=== PATIENT | male | born 1965 | race Caucasian/White ===

== ENCOUNTER 2019-12-14 12:49 | Inpatient (IN) | payer MEDICAID, SELFPAY ==
[2019-12-14] VITALS (8 sets, daily range): BP systolic 131–154; BP diastolic 75–101; PULSE 58–78; RESP 15–18; TEMP 36.7–36.9; O2SAT 96–99; BMI 20.5; BMI 19.5; BMI 19.6
--- NOTE | 2019-12-14 12:56 | EKG12_ITS ---
Test Reason : Blood Pressure : / mmHG Vent. Rate : 074 BPM Atrial Rate : 074 BPM P-R Int : 138 ms QRS Dur : 084 ms QT Int : 414 ms P-R-T Axes : 068 064 076 degrees QTc Int : 459 ms Sinus rhythm with Premature atrial complexes Septal infarct , age undetermined Abnormal ECG Confirmed by AIXA MARTIN, CARLYLE ([id number]), video tape editor CAROLEE ESQUIVEL ([id number]) on 12/19/2019 2:05:27 PM Referred By: DELLA Confirmed By:CARLYLE KRUSE MD
--- NOTE | 2019-12-14 13:00 | CM.ED ---
SOCIAL WORK UPDATED BY DR. HULL ON PATIENT'S REQUEST FOR DETOX. PATIENT LAST DRINK WAS YESTERDAY. COMPLETING WORK UP AT THIS TIME. CALL TO KIP WITH [facility] TO UPDATE ON PATIENT'S ANTICIPATED ADMISSION FOR ALCOHOL WITHDRAW MANAGEMENT. NO ANSWER, LEFT MESSAGE. Tiffanie THOMPSON ,BRIGHT CUTTER, ROOF BOLTER OPERATOR.
--- NOTE | 2019-12-14 13:10 | RAD_ITS ---
STUDY: X-RAY CHEST REASON FOR EXAM: Male, 54 years old. weight loss TECHNIQUE: PA and lateral views of the chest. COMPARISON: None. FINDINGS: The lungs are clear and expanded. There is no demonstrated pleural abnormality. Normal size heart. Normal mediastinum and makayla. Normal visualized pulmonary arteries. Normal visualized aortic arch and descending thoracic aorta. Normal visualized thoracic spine. Normal visualized ribs, clavicles, and shoulders. There is no demonstrated abnormality of the visualized soft tissue structures of the upper abdomen. RAD/Chest PA and Lateral IMPRESSION: Normal x-ray examination of the chest. Electronically Signed: James Medina MD at 14:08 EDT Tel , Service support ,
--- NOTE | 2019-12-14 13:11 | ED.DCSUM_ITS ---
History of Present Illness Chief Complaint: Substance Abuse Informant: Patient Narrative: Patient states that for greater than 30 years he has been addicted to alcohol. Specifically vodka. He states that he drinks approximately 2 pints a day sometimes with beer sometimes without. He states he wakes up every morning he is shaking and has to go right to the bottle. He has had difficulty maintaining a job. He states it has not caused him any legal issues. He is currently from his . He has 3 children that live in [place]. He is currently staying with a nurse and they sat down yesterday and talked and he has decided that he would like rehab. He states that he hates having to live a lie and resort to the bottle. He notes some weight loss but also states that alcohol has started to replace his food. Past Medical History - Allergies and Home Meds Allergies/Adverse Reactions: Allergies No Known Allergies Allergy (Verified 12/14/19 12:50) Primary Care Physician: NOT,DEFINED [NON-STAFF] - Review of Systems General: Denies: Chills, Fever, Sweats Eyes: Denies: Visual changes - bilaterally, Diplopia ENT: Denies: Rhinorrhea, Sore throat Cardiovascular: Denies: Chest pain, Palpitations Respiratory: Denies: Dyspnea, Cough, Dyspnea on exertion Gastrointestinal: Denies: Abdominal pain, Nausea, Vomiting, Diarrhea, Melena, Hematochezia Genitourinary: Denies: Dysuria, Hematuria, Frequency Musculoskeletal: Denies: Back pain, Extremity Pain Skin: Denies: Rash, Wounds Neurological: Denies: Headache, Weakness, Numbness Physical Exam Vital Signs/Narrative: Vital Signs Temp Pulse Resp BP Pulse Ox 12/14/19 12:51 98.4 F 68 15 154/94 H 97 Inital Vital Signs reviewed: Yes General: Well nourished, Well developed, No Acute Distress Head: Normocephalic, Atraumatic Eyes: Perrl, EOMI ENT: Moist mucous membranes, No rhinorrhea, - - Facial telangiectasias Neck: Supple, Nontender Cardiovascular: Regular rate, Regular rhythm, No murmurs Respiratory: No distress, CTA bilaterally, Chest nontender Abdomen: Soft, Nontender, Nondistended, Normal bowel sounds Back: Nontender, Normal Inspection Extremities: Nontender, No edema Skin: Normal color, No rash Neurological: Alert, Oriented x3, Cranial nerves II-XII grossly intact, Normal Strength, Normal Sensation, - - Patient has tremor Psychological: Depressed Diagnostic/Tx/Re-eval - EKG Initial EKG Interpretation: Sinus Rhythm - EKG demonstrates a sinus rhythm with some premature atrial complexes at a rate of 74 without concerning features of ACS. - Medical Decision Making ED addiction order set was used. He received a milligram of Ativan. Our plan is admission. ED Disposition - Plan for ED Patient: Disposition: Acute Care Hospital [facility] Diagnosis: Alcohol withdrawal Referrals: NOT,DEFINED [NON-STAFF] -
[2019-12-14] MEDS: LORazepam 2 MG/ML Syringe 1 MG IV (13:35)
[2019-12-14 13:51] LABS: Absolute Lymphocyte Count 0.99 X10^3/uL (0.83-4.51); Basophil# 0.02 X10^3/uL; Basophil% 0.4 % (0-1); Eosinophil# 0.14 X10^3/uL; Eosinophils% 2.5 % (0-5); Hemoglobin 13.7 g/dL (13.0-16.5); Lymphocyte # 0.99 X10^3/ul (4.0); Lymphocyte % 17.5 % (19-41); Mean Corp Hgb Conc 34.3 g/dL (32-36); Mean Corpuscular Hgb 35.1 pg (27.0-32.0); Mean Corpuscular Volume 102.6 fL (80-94); Mean Platelet Vol. 10.2 fl (6.2-12.0); Monocyte# 0.49 X10^3/uL; Monocyte% 8.7 % (0-10); NRBC Flagged by Analyzer 0 % (0-5); Neutrophil # 3.99 X10^3/uL (2.7-7.7); Neutrophil % 70.5 % (47-70); Platelet Count 141 K/mm3 (150-450); RBC Distribution Width CV 16.4 % (11.6-14.6); RBC Distribution Width SD 61.3 fl (35.1-43.9); White Blood Count 5.7 K/mm3 (4.4-11.0)
[2019-12-14 14:07] LABS: ALB/GLOB Ratio 0.9 RATIO (0.9-2.4); AST(SGOT) 128 U/L (15-37); Alanine Aminotransfer ALT/SGPT 89 U/L (16-61); Albumin, Serum 3.7 g/dL (3.2-5.0); Alkaline Phosphatase 133 U/L (45-117); Anion Gap 9 (5-15); BUN 8 mg/dL (7-18); BUN/Creat Ratio 11.1 RATIO (10-20); Calcium,Total 8.4 mg/dL (8.5-10.1); Chloride 104 mmol/L (98-107); Creatinine, Serum 0.72 mg/dL (0.70-1.30); EST Glomerular Filtration Rate 119 mL/min (>60); Est Glom Filt Rate - Afr Amer 145 mL/min (>60); Estimated Creatinine Clearance 114.07 ml/min; Globulin 4.3 g/dL (2.2-4.2); Glucose 87 mg/dL (74-106); Magnesium 1.9 mg/dL (1.6-2.6); Potassium 3.6 mmol/L (3.5-5.1); Sodium Level 138 mmol/L (136-145)
[2019-12-14 14:11] LABS: Prothrombin Time (Protime)PT. 12.5 SECONDS (11.7-14.9)
--- NOTE | 2019-12-14 14:39 | HP.PCM_ITS ---
History of Present Illness Date of Admission: 12/14/19 Chief Complaint: alcohol withdrawal The patient is a 54 year old M with a history of alcohol abuse and nicotine dependence. He was admitted through the ED on 12/14/2019 for alcohol withdrawal. Patient has been drinking alcohol for about 30 years and states he drinks about 2 pints a day. His last drink was yesterday. He usually wakes up in the morning with shakes which is relieved by drinking. Patient is staying with some family friends and he had a discussion with them yesterday and he decided that he would like to come into the hospital for withdrawal as he was having worsening shakes. He denied any fever, any chills, any palpitations or dizz iness, any nausea vomiting or diarrhea. Review of symptoms otherwise negative. Patient in the ED, vitals were significant for blood pressure of 131/101 but was otherwise stable. Chemistry showed total bilirubin of 0.7 with AST of 128 and ALT of 89 as well as ALP of 133. CBC showed WBC of 5.7 and hemoglobin of 13.7 with platelets of 141. Chest x-ray showed no acute cardiopulmonary process. Al cohol level is 29. He has been admitted to be managed for acute alcohol withdrawal. [] Past Medical History Allergies No Known Allergies Allergy (Verified 12/14/19 12:50) Home Medications: Ambulatory Orders Medication Instructions Recorded [place]-3 Fatty Acids/Fish Oil [Fish 1 ea PO DAILY 12/14/19 Oil 1,000 mg Capsule] Surgical History: no surgical history Psychiatric History: No pertinent psych hx Lives: Friends Smoking Status: Current every day smoker Tobacco Use: Cigarettes Alcohol: Heavy Drugs: None - *Family History Maternal History Items: Cancer Sibling History Items: Cancer - sister had breast cancer Paternal History Items: No pertinent history Review of Systems Constitutional: Denies: Chills, Fever, Malaise, Weakness, Weight Change Eyes: Denies: Blurred vision HEENT: Denies: Head Aches, Sinus Congestion, Sinus Drainage Cardiovascular: Denies: Chest Pain, Palpitations Respiratory: Denies: Cough, Shortness of Breath, Shortness of breath at rest, Shortness of breath upon exertion, Sputum production Gastrointestinal: Denies: Abdominal Pain, Nausea, Vomiting Genitourinary: Denies: Dysuria Musculoskeletal: Denies: Joint Pain, Joint Tenderness Skin: Denies: Rash, Wounds Neurological: Reports: Tremor. Denies: Focal weakness, Numbness, Tingling Psychiatric: Denies: Anxiety, Depression, Homicidal Ideations, Suicidal Ideations Hematologic/ Lymphatic: Denies: Easy Bruising, Easy Bleeding VTE Information - Inpt Only VTE Present on Admission: No VTE Pharm Prophylaxis ordered?: Yes Patient Problems: Active and Suspected Problems Alcohol withdrawal (Acute) - Physical Exam Vitals/I&O's: Vital Signs Temp Pulse Resp BP Pulse Ox 98.4 F 70 16 132/75 H 97 12/14/19 13:22 12/14/19 13:32 12/14/19 13:32 12/14/19 13:32 12/14/19 13:32 Oxygen Delivery Method Room Air Weight: 155 lb 3.287 oz Body Mass Index (BMI) 20.5 General: Alert, Oriented x3, Cooperative, No apparent distress HEENT: Atraumatic, PERRLA, EOMI, Normocephalic Oral: Dry Mucosa Neck: Supple, No JVD, Negative Carotid Bruits Lungs: Clear to auscultation, Normal air movement, No rhonchi, No wheeze Cardiovascular: Regular rate, Regular Rhythm, Normal S1, Normal S2, No murmurs Abdomen: Bowel Sounds Present, Soft, Non Tender, Non-Distended, No Hepato- splenomegaly Extremities: No clubbing, No cyanosis, No edema, Capillary Refill Less than 3 Seconds Skin: No rashes, No breakdown Musculoskeletal: No Tenderness to Palpation of Joints or Extremities Lymphatic: No Cervical, Supraclavicular, or Inguinal Adenopathy Neurological: Cranial nerves II-XII grossly intact, Neuro grossly intact, Motor Exam 5/5 strength throughout Psych/Mental Status: Normal Affect, Appropriate, Alert and oriented to time, place, person, mood and affect Laboratory Results 12/14/19 13:35: PT 12.5, INR 1.0 12/14/19 13:35: Sodium 138, Potassium 3.6, Chloride 104, Carbon Dioxide 25.0, Anion Gap 9, BUN 8, Creatinine 0.72, Estim Creat Clear Calc 114.07, Est GFR (MDRD) Af Amer 145, Est GFR (MDRD) Non-Af 119, BUN/Creatinine Ratio 11.1, Glucose 87, Calcium 8.4 L, Magnesium 1.9, Total Bilirubin 0.70, AST 128 H, ALT 89 H, Alkaline Phosphatase 133 H, Total Protein 8.0, Albumin 3.7, Globulin 4.3 H , Albumin/Globulin Ratio 0.9 12/14/19 13:35: Ethyl Alcohol 29.0 12/14/19 13:35: WBC 5.7, RBC 3.90 L, Hgb 13.7, Hct 40.0, MCV 102.6 H, MCH 35.1 H , MCHC 34.3, RDW Std Deviation 61.3 H, RDW Coeff of Shad 16.4 H, Plt Count 141 L, MPV 10.2, Immature Gran % (Auto) 0.400, Neut % (Auto) 70.5 H, Lymph % (Auto) 17.5 L, [place] % (Auto) 8.7, Eos % (Auto) 2.5, Baso % (Auto) 0.4, Absolute Neuts (auto) 4.0, Absolute Lymphs (auto) 0.99, Nucleated RBC % 0 Diagnostic Data Chest X-Ray 12/14/19 13:10 IMPRESSION: Normal x-ray examination of the chest. Electronically Signed: James Medina MD at 14:08 EDT Tel , Service support , Assessment/Plan All Active Problems Alcohol withdrawal (Acute) 54-year-old male admitted for alcohol withdrawal. 1. Acute alcohol withdrawal * CIWA score on admission-18 * admit to Med Surg with telemetry * check urine tox * start on alcohol withdrawal protocol with phenobarbital * monitor CIWA score * consult case management for discharge planning. * 2. Nicotine dependence * smokes ~ 1 pack daily * give nicotine patch 21mg daily * DVT prophylaxis; low risk. encourage ambulation CODE STATUS: Full code * Patient counseled extensively about different types of CODE STATUS including full code, DNR CCA and DNR CCA. Patient elects to be full code. * Total [id number] time 16 minutes. Inpatient E&M: 42463 Init Hosp L3 Procedures: 58569 Advncd Care Plan 30 Min
[2019-12-14 16:03] LABS: Bacteria 0 SEEN /hpf (None Seen)
[2019-12-14 16:10] LABS: Color, Urine Yellow (Yellow); Glucose, Dipstick Normal (Normal); Ketone-Dipstick 15 mg/dl (Negative); Leukocyte Esterase-Dipstick 100 /ul (Negative); Nitrite-Dipstick Negative (Negative); Occult Blood-Urine 10 /ul (Negative); Protein-Dipstick 15 mg/dl (Negative); Urine Bilirubin Dipstick Negative (Negative); Urine Clarity Clear (Clear); Urine Urobilinogen 1 mg/dl (Normal)
--- NOTE | 2019-12-14 16:14 | NURSING ---
pt does not get influenza vaccine
[2019-12-14 16:20] LABS: Squamous Epithelial Cells - UA 0-5 SEEN /hpf (0-5)
[2019-12-14 16:21] LABS: Hyaline Cast 0-5 SEEN /lpf (0-5); Mucous, Urine RARE /hpf (<or=2+)
[2019-12-14 16:22] LABS: Red Blood Cells-Urine 0-5 SEEN /hpf (0-5); White Blood Cells 5-10 SEEN /hpf (0-5)
[2019-12-14] MEDS: Phenobarbital 32.4 MG Tablet 64.8 MG PO ×2 (16:25→20:55)
[2019-12-14] MEDS: Thiamine Hydrochloride 100 MG Tablet PO (16:26)
[2019-12-14 16:32] LABS: Amphetamine Urine VISTA NEGATIVE (<1000 ng/mL); Barbiturate Urine VISTA NEGATIVE (< 200 ng/mL); Benzodiazepine Urine VISTA NEGATIVE (< 200 ng/mL); Cocaine Urine VISTA NEGATIVE (< 300 ng/mL); Ecstacy Urine VISTA NEGATIVE (< 500 ng/mL); Methadone Urine VISTA NEGATIVE (< 300 ng/mL); PCP Urine VISTA NEGATIVE (< 25 ng/mL); THC Urine VISTA NEGATIVE (< 50 ng/mL); Vista UDS pH Range 5
[2019-12-15] VITALS (11 sets, daily range): BP systolic 120–146; BP diastolic 79–92; PULSE 56–117; RESP 16–18; TEMP 36.6–36.9; O2SAT 97–98
[2019-12-15] MEDS: Phenobarbital 32.4 MG Tablet 64.8 MG PO ×6 (00:45→20:58)
[2019-12-15] MEDS: Multivitamins,Ther W-Minerals Tablet 1 TABLET PO (08:12)
[2019-12-15] MEDS: Omega-3 Acid Ethyl Esters 1 GM Capsule PO (08:12)
[2019-12-15] MEDS: Folic Acid 1 MG Tablet PO (08:12)
[2019-12-15] MEDS: Thiamine Hydrochloride 100 MG Tablet PO ×2 (08:12→16:05)
--- NOTE | 2019-12-15 09:28 | CASEMGMT ---
Addendum entered by Iwona Alcocer 12/15/19 10:51: KENYA received call from Ashleigh at [facility] stating Sondra will be in to see pt today as Ashleigh is out sick. Original Note: Social Work Note SW placed another call to Ashleigh at [facility] (cell phone) and left message that pt will need to be seen. Iwona Alcocer CHANGE OF ADDRESS CLERK, EAP COUNSELOR
--- NOTE | 2019-12-15 10:22 | PCM.PN.HOSP ---
Patient Problems: Active and Suspected Problems Alcohol withdrawal (Acute) Subjective: Patient seen and examined. He has no complaints and feels well. Review of systems otherwise negative. Labs and vitals reviewed. CIWA score is 2. Vitals/I&O's: Vital Signs Temp Pulse Resp BP Pulse Ox 98.4 F 56 L 16 146/92 H 97 12/15/19 08:10 12/15/19 08:10 12/15/19 08:10 12/15/19 08:10 12/15/19 08:10 Oxygen Delivery Method Room Air Weight: 148 lb 7 oz Body Mass Index (BMI) 19.5 Intake and Output for Last 24 Hours 12/13/19 12/14/19 12/15/19 23:59 23:59 23:59 Intake Total 240 / 240 700 / 700 Output Total 600 / 600 Balance 240 / 240 100 / 100 General: Alert, Oriented x3, Cooperative, No apparent distress HEENT: Atraumatic, PERRLA, EOMI, Normocephalic Oral: Dry Mucosa Neck: Supple, No JVD, Negative Carotid Bruits Lungs: Clear to auscultation, Normal air movement, No rhonchi, No wheeze Cardiovascular: Regular rate, Regular Rhythm, Normal S1, Normal S2, No murmurs Abdomen: Bowel Sounds Present, Soft, Non Tender, Non-Distended, No Hepato-splenomegaly Extremities: No clubbing, No cyanosis, No edema, Capillary Refill Less than 3 Seconds Skin: No rashes, No breakdown Musculoskeletal: No Tenderness to Palpation of Joints or Extremities Lymphatic: No Cervical, Supraclavicular, or Inguinal Adenopathy Neurological: Cranial nerves II-XII grossly intact, Neuro grossly intact, Motor Exam 5/5 strength throughout Psych/Mental Status: Normal Affect, Appropriate, Alert and oriented to time, place, person, mood and affect Laboratory Results 12/14/19 13:35: PT 12.5, INR 1.0 12/14/19 13:35: Sodium 138, Potassium 3.6, Chloride 104, Carbon Dioxide 25.0, Anion Gap 9, BUN 8, Creatinine 0.72, Estim Creat Clear Calc 114.07, Est GFR (MDRD) Af Amer 145, Est GFR (MDRD) Non-Af 119, BUN/Creatinine Ratio 11.1, Glucose 87, Calcium 8.4 L, Magnesium 1.9, Total Bilirubin 0.70, AST 128 H, ALT 89 H, Alkaline Phosphatase 133 H, Total Protein 8.0, Albumin 3.7, Globulin 4.3 H, Albumin/Globulin Ratio 0.9 12/14/19 13:35: Ethyl Alcohol 29.0 12/14/19 13:35: WBC 5.7, RBC 3.90 L, Hgb 13.7, Hct 40.0, MCV 102.6 H, MCH 35.1 H, MCHC 34.3, RDW Std Deviation 61.3 H, RDW Coeff of Shad 16.4 H, Plt Count 141 L, MPV 10.2, Immature Gran % (Auto) 0.400, Neut % (Auto) 70.5 H, Lymph % (Auto) 17.5 L, [place] % (Auto) 8.7, Eos % (Auto) 2.5, Baso % (Auto) 0.4, Absolute Neuts (auto) 4.0, Absolute Lymphs (auto) 0.99, Nucleated RBC % 0 12/14/19 15:55: Urine Opiates Screen NEGATIVE, Urine Methadone Screen NEGATIVE, Ur Barbiturates Screen NEGATIVE, Ur Phencyclidine Scrn NEGATIVE, Ur Amphetamines Screen NEGATIVE, U Methamphetamin-MDMA NEGATIVE, U Benzodiazepines Scrn NEGATIVE, Urine Cocaine Screen NEGATIVE, U Cannabinoids Screen NEGATIVE, Ur Drug Screen Comment 12/14/19 15:55: Urine Color Yellow, Urine Clarity Clear, Urine pH 5.0, Ur Specific [place] 1.020, Urine Protein 15 H, Urine Glucose (UA) Normal, Urine Ketones 15 H, Urine Occult Blood 10 H, Urine Nitrite Negative, Urine Bilirubin Negative, Urine Urobilinogen 1 H, Ur Leukocyte Esterase 100 H, Urine RBC 0-5 SEEN, Urine WBC 5-10 SEEN, Ur Squamous Epith Cells 0-5 SEEN, Urine Bacteria 0 SEEN, Hyaline Casts 0-5 SEEN, Urine Mucus RARE Diagnostic Data Chest X-Ray 12/14/19 13:10 IMPRESSION: Normal x-ray examination of the chest. Electronically Signed: James Medina MD at 14:08 EDT Tel , Service support , Current Medications Dextrose (D50w Syringe) 0 gm IV X1 PRN; Protocol PRN Reason: Hypoglycemia Dicyclomine HCl (Bentyl) 20 mg PO Q6H PRN PRN PRN Reason: abdominal discomfort Folic Acid (Folic Acid) 1 mg PO DAILY@0800 [facility] Stop: 12/17/19 08:01 Last Admin: 12/15/19 08:12 Dose: 1 mg Documented by: Glucagon () 1 mg IM .X1 PRN PRN Reason: Hypoglycemia Loperamide HCl (Imodium) 2 mg PO Q4H PRN PRN PRN Reason: LOOSE STOOLS Lorazepam (Ativan) 2 mg PO Q2H PRN PRN; Protocol PRN Reason: CIWA score > 8 but <15 Lorazepam (Ativan) 2 mg PO UD PRN; Protocol PRN Reason: CIWA score >/=15. Lorazepam (Ativan) 2 mg IV Q2H PRN PRN; Protocol PRN Reason: CIWA score > 8 but <15 Lorazepam (Ativan) 2 mg IV UD PRN; Protocol PRN Reason: CIWA score >/=15. Multivitamins/Minerals (Multivitamin With Minerals (Bkc)) [facility] Last Admin: 12/15/19 08:12 Dose: 1 tablet Documented by: Nutritional Formula (Lactose Free) (Ensure Enlive) 120 ml PO 4X/DAY [facility] Last Admin: 12/15/19 08:15 Dose: 120 ml Documented by: [id number] Ethyl Esters (Lovaza) 1 gm PO DAILY [facility] Last Admin: 12/15/19 08:12 Dose: 1 gm Documented by: Phenobarbital (Phenobarbital) 97.2 mg PO Q4H [facility]; Taper Stop: 12/18/19 23:59 Last Admin: 12/15/19 08:11 Dose: 97.2 mg Documented by: Sodium Chloride () 10 - 40 ml IV UD PRN PRN Reason: SALINE FLUSH Thiamine HCl (Vitamin B1) 100 mg PO BIDCM [facility] Stop: 12/17/19 08:01 Last Admin: 12/15/19 08:12 Dose: 100 mg Documented by: STROKE Vital Signs/Narrative: Vital Signs Temp Pulse Resp BP Pulse Ox 12/15/19 08:10 98.4 F 56 L 16 146/92 H 97 12/15/19 07:35 61 Medical Necessity - Tobacco Use Smoking Status: Current every day smoker Tobacco Use: Cigarettes Assessment/Plan All Active Problems Alcohol withdrawal (Acute) 54-year-old male admitted for alcohol withdrawal. 1. Acute alcohol withdrawal CIWA sxore today s 2 on alcohol withdrawal protocol with phenobarbital urine tox was negative monitor CIWA score 2. Nicotine dependence smokes ~ 1 pack daily give nicotine patch 21mg daily DVT prophylaxis; low risk. encourage ambulation CODE STATUS: Full code Inpatient E&M: 90755 Subs Hosp L2
--- NOTE | 2019-12-15 13:16 | CHAPLAIN ---
Type of Pastoral Visit _x__ Initial Visit ___ Follow-up Visit ___ On-call Visit ___ General Patient Visit ___ Spiritual Assessment ___ Family Conference ___ Bereavement ___ Rapid Response ___ Code Blue ___ Other (describe below) Pastoral Care Referral From _x__ Patient ___ Family ___ Nurse ___ Physician ___ Property And Supply Officer ___ Knit Goods Washer ___ Other (describe below) Sacrament/Intervention _x__ Active listening ___ Anointing ___ Protestant ___ Bereavement ___ Communion _x__ Moriah exploration ___ _x__ Life review _x__ Prayer ___ Reconciliation ___ Sacrament of Sick _x__ Supportive presence ___ Wedding ___ Other (describe below) Pastoral Comments patient welcoming of this steam blocker and invites same to sit and talk with him; pt describes goal to get sober 'after 30 years I've had enough of this'; pt says that one thing he wants to do is to get back to God; pt states that a friend has been taking him to christian; pt gives some life story and repeats goal of being 'done with this'; pt has some supportive family but not many; pt is unemployed and has lost his drivers license but appears motivated to find work and 'start over'; patient would be a good candidate for moriah based counseling; pt open to spiritual care visits
[2019-12-16] VITALS (13 sets, daily range): BP systolic 95–121; BP diastolic 67–84; PULSE 54–84; RESP 16–18; TEMP 36.5–37.2; O2SAT 95–97
[2019-12-16] MEDS: Phenobarbital 32.4 MG Tablet 64.8 MG PO ×6 (00:06→19:36)
[2019-12-16] MEDS: Multivitamins,Ther W-Minerals Tablet 1 TABLET PO (08:33)
[2019-12-16] MEDS: Folic Acid 1 MG Tablet PO (08:33)
[2019-12-16] MEDS: Omega-3 Acid Ethyl Esters 1 GM Capsule PO (08:33)
[2019-12-16] MEDS: Thiamine Hydrochloride 100 MG Tablet PO ×2 (08:33→16:23)
--- NOTE | 2019-12-16 09:21 | PN_ITS ---
Patient Problems: Active and Suspected Problems Alcohol withdrawal (Acute) Reason for Visit: follwo up for alcohol withdrawal Subjective: Patient seen and examined. He has no complaints. Review of systems otherwise negative. Labs and vitals reviewed. CIWA score today is 0 Vitals/I&O's: Vital Signs Temp Pulse Resp BP Pulse Ox 97.7 F L 74 16 95/67 95 12/16/19 08:46 12/16/19 08:46 12/16/19 08:46 12/16/19 08:46 12/16/19 08:46 Oxygen Delivery Method Room Air Weight: 148 lb 7 oz Body Mass Index (BMI) 19.5 Intake and Output for Last 24 Hours 12/14/19 12/15/19 12/16/19 23:59 23:59 23:59 Intake Total 240 / 240 1700 / 2060 710 / 710 Output Total 600 / 600 Balance 240 / 240 1100 / 1460 710 / 710 General: Alert, Oriented x3, Cooperative, No apparent distress HEENT: Atraumatic, PERRLA, EOMI, Normocephalic Oral: Dry Mucosa Neck: Supple, No JVD, Negative Carotid Bruits Lungs: Clear to auscultation, Normal air movement, No rhonchi, No wheeze Cardiovascular: Regular rate, Regular Rhythm, Normal S1, Normal S2, No murmurs Abdomen: Bowel Sounds Present, Soft, Non Tender, Non-Distended, No Hepato- splenomegaly Extremities: No clubbing, No cyanosis, No edema, Capillary Refill Less than 3 Seconds Skin: No rashes, No breakdown Musculoskeletal: No Tenderness to Palpation of Joints or Extremities Lymphatic: No Cervical, Supraclavicular, or Inguinal Adenopathy Neurological: Cranial nerves II-XII grossly intact, Neuro grossly intact, Motor Exam 5/5 strength throughout Psych/Mental Status: Normal Affect, Appropriate, Alert and oriented to time, place, person, mood and affect Current Medications Dextrose (D50w Syringe) 0 gm IV X1 PRN; Protocol PRN Reason: Hypoglycemia Dicyclomine HCl (Bentyl) 20 mg PO Q6H PRN PRN PRN Reason: abdominal discomfort Folic Acid (Folic Acid) 1 mg PO DAILY@0800 [facility] Stop: 12/17/19 08:01 Last Admin: 12/16/19 08:33 Dose: 1 mg Documented by: Glucagon () 1 mg IM .X1 PRN PRN Reason: Hypoglycemia Loperamide HCl (Imodium) 2 mg PO Q4H PRN PRN PRN Reason: LOOSE STOOLS Lorazepam (Ativan) 2 mg PO Q2H PRN PRN; Protocol PRN Reason: CIWA score > 8 but <15 Lorazepam (Ativan) 2 mg PO UD PRN; Protocol PRN Reason: CIWA score >/=15. Lorazepam (Ativan) 2 mg IV Q2H PRN PRN; Protocol PRN Reason: CIWA score > 8 but <15 Lorazepam (Ativan) 2 mg IV UD PRN; Protocol PRN Reason: CIWA score >/=15. Multivitamins/Minerals (Multivitamin With Minerals (Bkc)) [facility] Last Admin: 12/16/19 08:33 Dose: 1 tablet Documented by: Nicotine (Nicoderm Cq (Pbkc)) 21 mg TRANSDERM. DAILY [facility] Last Admin: 12/16/19 08:38 Dose: Not Given Documented by: Nutritional Formula (Lactose Free) (Ensure Enlive) 120 ml PO 4X/DAY [facility] Last Admin: 12/16/19 08:38 Dose: 120 ml Documented by: [id number] Ethyl Esters (Lovaza) 1 gm PO DAILY [facility] Last Admin: 12/16/19 08:33 Dose: 1 gm Documented by: Phenobarbital (Phenobarbital) 64.8 mg PO Q4H [facility]; Taper Stop: 12/18/19 23:59 Last Admin: 12/16/19 08:36 Dose: 64.8 mg Documented by: Sodium Chloride () 10 - 40 ml IV UD PRN PRN Reason: SALINE FLUSH Thiamine HCl (Vitamin B1) 100 mg PO BIDCM [facility] Stop: 12/17/19 08:01 Last Admin: 12/16/19 08:33 Dose: 100 mg Documented by: STROKE Vital Signs/Narrative: Vital Signs Temp Pulse Resp BP Pulse Ox 12/16/19 08:46 97.7 F L 74 16 95/67 95 12/16/19 08:44 97.7 F L 74 16 95/67 95 12/16/19 07:52 68 Medical Necessity - Tobacco Use Smoking Status: Current every day smoker Tobacco Use: Cigarettes Assessment/Plan All Active Problems Alcohol withdrawal (Acute) 54-year-old male admitted for alcohol withdrawal. 1. Acute alcohol withdrawal * CIWA sxore today is 0 * on alcohol withdrawal protocol with phenobarbital * urine tox was negative * monitor CIWA score * 2. Nicotine dependence * smokes ~ 1 pack daily * nicotine patch 21mg daily * DVT prophylaxis; low risk. encourage ambulation CODE STATUS: Full code * Inpatient E&M: 45592 Subs Hosp L2
--- NOTE | 2019-12-16 09:24 | NURSING ---
Addendum entered by Betsy Reid 12/16/19 16:34: Mallory from [facility] here to discuss discharge planning with patient. they plan for him to return to friend Mely's house on Wednesday and then go to [facility] on Wednesday morning at 0900. Original Note: called [facility] to verify that they were coming to see patient. informed them that we have no notes in regards to discharge planning
[2019-12-17] MEDS: Phenobarbital 32.4 MG Tablet 64.8 MG PO ×3 (00:06→12:06)
[2019-12-17 02:15] VITALS: BP 111/75; PULSE 73; RESP 16; TEMP 37; O2SAT 97
[2019-12-17] MEDS: Folic Acid 1 MG Tablet PO (08:30)
[2019-12-17] MEDS: Multivitamins,Ther W-Minerals Tablet 1 TABLET PO (08:30)
[2019-12-17] MEDS: Thiamine Hydrochloride 100 MG Tablet PO (08:30)
[2019-12-17] MEDS: Omega-3 Acid Ethyl Esters 1 GM Capsule PO (08:31)
[2019-12-17 09:24] VITALS: BP 119/66; PULSE 80; RESP 16; TEMP 36.8; O2SAT 97
--- NOTE | 2019-12-17 10:01 | PCM.DC ---
- Discharge Diagnoses Current Active Problems: Current Active and Chronic Problems Alcohol withdrawal (Acute) You will use the following diet at home:: Cardiac Your food should be the consistency of: Regular Your liquids should be the consistency of: Regular/Thin Discharge Activity: Return to Normal Activity Weight Bearing Status: Weight bearing as tolerated Call your doctor if you observe: Fever of 101 or Higher, Increased palpitations (irregular heartbeat) Instructions: ED Withdrawal Alcohol Additional Instructions: follow up with [facility] on Wednesday12/19/2019, for assessment to determine whether to have outpatient or inpatient rehab Allergies/Adverse Reactions: Allergies No Known Allergies Allergy (Verified 12/14/19 12:50) Medications to take at Discharge [place]-3 Fatty Acids/Fish Oil [Fish Oil 1,000 mg Capsule] 1 ea PO DAILY 12/14/19 Primary Care Physician: NOT,DEFINED [NON-STAFF] - Please follow up with your Primary Care Physician in: PCP in 1-2 weeks Test Results: Test results from this visit will be discussed in further detail at your follow-up appointment, if applicable. Proposed Discharge Date: 12/17/19
--- NOTE | 2019-12-17 10:03 | DS.PCM_ITS ---
Discharge Date and Diagnosis - Problem List Patient Problems: Active and Suspected Problems Alcohol withdrawal (Acute) Date of Admission: 12/14/19 Date of Discharge: 12/17/19 - Primary Discharge Diagnosis Acute Problems: Active Problems Alcohol withdrawal (Acute) Hospital Course and Treatment Imaging Results: Diagnostic Data Chest X-Ray 12/14/19 13:10 IMPRESSION: Normal x-ray examination of the chest. Electronically Signed: James Medina MD at 14:08 EDT Tel , Service support , Operations: None Procedures: None Summary of Care Provided: The patient is a 54 year old M with a history of alcohol abuse and nicotine dependence. He was admitted through the ED on 12/14/2019 for alcohol withdrawal. Patient has been drinking alcohol for about 30 years and states he drinks about 2 pints a day. His last drink was yesterday. He usually wakes up in the morning with shakes which is relieved by drinking. Patient is staying with some family friends and he had a discussion with them yesterday and he decided that he would like to come into the hospital for withdrawal as he was having worsening shakes. He denied any fever, any chills, any palpitations or dizziness, any nausea vomiting or diarrhea. Review of symptoms otherwise negative. Patient in the ED, vitals were significant for blood pressure of 131/101 but was otherwise stable. Chemistry showed total bilirubin of 0.7 with AST of 128 and ALT of 89 as well as ALP of 133. CBC showed WBC of 5.7 and hemoglobin of 13.7 with platelets of 141. Chest x-ray showed no acute cardiopulmonary process. Alcohol level was 29. He was admitted to be managed for acute alcohol withdrawal. He was started on alcohol withdrawal protocol with phenobarbital. Patient tolerated 3-day detox procedure very well. His symptoms fully resolved. He remained stable and was discharged home on 12/17/2019. He was evaluated by [facility] during admission and plan was for patient to follow-up with 118 on 12/19/2019 for decision to be made about whether he will go for inpatient rehab or outpatient rehab. He is to follow up with his PCP in 1-2 weeks. Patient seen and examined prior to discharge. He had no complaints and was ready to be discharged. Review of systems was otherwise negative. Home meds reviewed and reconciled. O/E: Vital Signs Temp Pulse Resp BP Pulse Ox 98.1 F 77 16 118/71 97 12/17/19 12:14 12/17/19 12:14 12/17/19 12:14 12/17/19 12:14 12/17/19 12:14 General: Alert, Oriented x3, Cooperative, No apparent distress HEENT: Atraumatic, PERRLA, EOMI, Normocephalic Oral: Dry Mucosa Neck: Supple, No JVD, Negative Carotid Bruits Lungs: Clear to auscultation, Normal air movement, No rhonchi, No wheeze Cardiovascular: Regular rate, Regular Rhythm, Normal S1, Normal S2, No murmurs Abdomen: Bowel Sounds Present, Soft, Non Tender, Non-Distended, No Hepato- splenomegaly Extremities: No clubbing, No cyanosis, No edema, Capillary Refill Less than 3 Seconds Skin: No rashes, No breakdown Musculoskeletal: No Tenderness to Palpation of Joints or Extremities Lymphatic: No Cervical, Supraclavicular, or Inguinal Adenopathy Neurological: Cranial nerves II-XII grossly intact, Neuro grossly intact, Motor Exam 5/5 strength throughout Psych/Mental Status: Normal Affect, Appropriate, Alert and oriented to time, place, person, mood and affect Plan is for discharge home today as above. Patient Problems: Active and Suspected Problems Alcohol withdrawal (Acute) - Physical Exam Vitals/I&O's: Vital Signs Temp Pulse Resp BP Pulse Ox 98.2 F 80 16 119/66 97 12/17/19 09:24 12/17/19 09:24 12/17/19 09:24 12/17/19 09:24 12/17/19 09:24 Oxygen Delivery Method Room Air Weight: 148 lb 7 oz Body Mass Index (BMI) 19.5 Intake and Output for Last 24 Hours 12/15/19 12/16/19 12/17/19 23:59 23:59 23:59 Intake Total 1700 / 2060 1160 / 1160 Output Total 600 / 600 Balance 1100 / 1460 1160 / 1160 Current Medications Dextrose (D50w Syringe) 0 gm IV X1 PRN; Protocol PRN Reason: Hypoglycemia Dicyclomine HCl (Bentyl) 20 mg PO Q6H PRN PRN PRN Reason: abdominal discomfort Glucagon () 1 mg IM .X1 PRN PRN Reason: Hypoglycemia Loperamide HCl (Imodium) 2 mg PO Q4H PRN PRN PRN Reason: LOOSE STOOLS Lorazepam (Ativan) 2 mg PO Q2H PRN PRN; Protocol PRN Reason: CIWA score > 8 but <15 Lorazepam (Ativan) 2 mg PO UD PRN; Protocol PRN Reason: CIWA score >/=15. Lorazepam (Ativan) 2 mg IV Q2H PRN PRN; Protocol PRN Reason: CIWA score > 8 but <15 Lorazepam (Ativan) 2 mg IV UD PRN; Protocol PRN Reason: CIWA score >/=15. Multivitamins/Minerals (Multivitamin With Minerals (Bkc)) 1 tablet PO DAILYCM [facility] Last Admin: 12/17/19 08:30 Dose: 1 tablet Documented by: Nicotine (Nicoderm Cq (Pbkc)) 21 mg TRANSDERM. DAILY [facility] Last Admin: 12/17/19 08:30 Dose: Not Given Documented by: Nutritional Formula (Lactose Free) (Ensure Enlive) 120 ml PO 4X/DAY [facility] Last Admin: 12/17/19 08:31 Dose: Not Given Documented by: [id number] Ethyl Esters (Lovaza) 1 gm PO DAILY [facility] Last Admin: 12/17/19 08:31 Dose: 1 gm Documented by: Phenobarbital (Phenobarbital) 64.8 mg PO Q6H [facility]; Taper Stop: 12/18/19 23:59 Last Admin: 12/17/19 05:20 Dose: 64.8 mg Documented by: Sodium Chloride () 10 - 40 ml IV UD PRN PRN Reason: SALINE FLUSH Discharge Diet: Low fat/ Low Cholesterol Discharge Activity: Return to Normal Activity Weight Bearing Status: Weight bearing as tolerated Call your doctor if you observe: Fever of 101 or Higher, Increased palpitations (irregular heartbeat) Home Medications: Medications to take at Discharge [place]-3 Fatty Acids/Fish Oil [Fish Oil 1,000 mg Capsule] 1 ea PO DAILY 12/14/19 Primary Care Physician: NOT,DEFINED [NON-STAFF] - Please follow up with your Primary Care Physician in: PCP in 1-2 weeks Patient Instructions: ED Withdrawal Alcohol Disposition: Home Minutes spent on discharge:: 40 Patient Condition:: Stable Medical Necessity - Tobacco Use Smoking Status: Current every day smoker Tobacco Use: Cigarettes Meaningful Use Info Meaningful Use Diagnoses (Choose all that apply): None applicable Inpatient E&M: 91229 Disch Hosp
[2019-12-17 12:14] VITALS: BP 118/71; PULSE 77; RESP 16; TEMP 36.7; O2SAT 97
== END 2019-12-17 13:30 | disposition home or self-care (01) | DRG 775 ==
LOC: ED 14:23 → MS3 12-15 06:36
PROVIDERS: Admitting Provider Student in an Organized Health Care Education/Training Program; Emergency Provider Emergency Medicine; Visit Provider Student in an Organized Health Care Education/Training Program
DX: F10.239 Alcohol dependence with withdrawal, unspecified (principal); Y90.1 Blood alcohol level of 20-39 mg/100 ml; F32.9 Major depressive disorder, single episode, unspecified; F17.210 Nicotine dependence, cigarettes, uncomplicated
CPT/HCPCS: 71046; 80053; 80307; 80320; 81001; 83735; 85025; 85610; 93005; 97802; 99284; 99406; A4216; G0480

== ENCOUNTER 2020-05-23 15:17 | Observation (INO) | payer MEDICAID, SELFPAY ==
[2019-12-14 15:53] VITALS: BMI 19.5
[2020-05-23 15:18] VITALS: BP 138/75; PULSE 94; RESP 15; TEMP 36.2; O2SAT 97; BMI 21.1
--- NOTE | 2020-05-23 15:33 | ED.DCSUM_ITS ---
- ER Visit Summary Date of Service: 05/23/20 Chief Complaint: Alcohol detox History of Present Illness: The patient is a 54 M who presents requesting alcohol detox. Patient states he drinks approximately 2 pints of vodka per day. Patient states he has been doing this mostly on weekends for the last few mo nths. Patient admits to a prior admission for detox here back in November. Patient states his last drink was approximately 10 AM today. Patient denies any fevers or chills. Patient denies any hallucinations. Patient admits to some shaky feeling at times. Patient denies any palpitations. Patient denies any seizures. Patient denies any sick contacts. Patient denies any loss of taste or smell. Physical Examination: Vital signs are stable. Patient is afebrile. Patient is in no acute distress. Oral mucosa is pink and moist. Neck is supple. Trachea is midline. There is no JVD noted. Heart was regular rate and rhythm. Lungs are clear and equal bilaterally. Abdomen is soft. Bowel sounds are normal. There is no tenderness. There is no rebound or guarding noted. Skin is warm dry. Cranial nerves II through XII are intact. There are no focal motor or sensory deficits noted. Extremities are intact. There is no calf tenderness or edema. Test Results: CBC and comprehensive metabolic profile were obtained were within normal limits. Urine tox screen was negative. Serum alcohol level was ordered and is pending. Emergency Department Course and Treatment: Case was discussed with the hospitalist. He will be in to evaluate the patient and admit the patient for alcohol detox. Patient understood and was agreeable with the plan. All questions were answered. Disposition: Admit to hospital Impression: Alcohol withdrawal This note was generated with [employer] dictation software. It may contain incorrect words, spelling, and punctuation that were not noted in review of the chart prior to signing ED Disposition - Plan for ED Patient: Disposition: Acute Care Hospital [facility] Diagnosis: Alcohol withdrawal Referrals: Care Physician,No Primary [Primary Care Provider] -
[2020-05-23 15:43] VITALS: BP 140/71; PULSE 82; RESP 16; TEMP 36.4; O2SAT 98
[2020-05-23 15:53] LABS: Absolute Lymphocyte Count 1.94 X10^3/uL (0.83-4.51); Absolute Neutrophil Count 5.4 X10^3/uL (2.0-7.7); Basophil# 0.05 X10^3/uL; Basophil% 0.6 % (0-1); Eosinophil# 0.35 X10^3/uL; Eosinophils% 4.3 % (0-5); Hematocrit 43.7 % (40-54); Lymphocyte # 1.94 X10^3/ul (4.0); Lymphocyte % 23.9 % (19-41); Mean Corp Hgb Conc 34.3 g/dL (32-36); Mean Corpuscular Hgb 33.4 pg (27.0-32.0); Mean Corpuscular Volume 97.3 fL (80-94); Mean Platelet Vol. 10.1 fl (6.2-12.0); Monocyte# 0.34 X10^3/uL; Monocyte% 4.2 % (0-10); NRBC Flagged by Analyzer 0 % (0-5); Neutrophil # 5.41 X10^3/uL (2.7-7.7); Neutrophil % 66.6 % (47-70); Platelet Count 251 K/mm3 (150-450); RBC Distribution Width CV 14.7 % (11.6-14.6); RBC Distribution Width SD 53.3 fl (35.1-43.9); Red Blood Count 4.49 M/mm3 (4.6-6.2); White Blood Count 8.1 K/mm3 (4.4-11.0)
[2020-05-23 16:05] LABS: Amphetamine Urine VISTA NEGATIVE (<1000 ng/mL); Barbiturate Urine VISTA NEGATIVE (< 200 ng/mL); Benzodiazepine Urine VISTA NEGATIVE (< 200 ng/mL); Cocaine Urine VISTA NEGATIVE (< 300 ng/mL); Ecstacy Urine VISTA NEGATIVE (< 500 ng/mL); Methadone Urine VISTA NEGATIVE (< 300 ng/mL); PCP Urine VISTA NEGATIVE (< 25 ng/mL); THC Urine VISTA NEGATIVE (< 50 ng/mL); Vista UDS pH Range 6
[2020-05-23 16:10] LABS: AST(SGOT) 34 U/L (15-37); Alanine Aminotransfer ALT/SGPT 28 U/L (16-61); Alkaline Phosphatase 113 U/L (45-117); Anion Gap 7 (5-15); BUN 14 mg/dL (7-18); BUN/Creat Ratio 13.7 RATIO (10-20); Calcium,Total 8.3 mg/dL (8.5-10.1); Chloride 103 mmol/L (98-107); Creatinine, Serum 1.02 mg/dL (0.70-1.30); EST Glomerular Filtration Rate 80 mL/min (>60); Est Glom Filt Rate - Afr Amer 97 mL/min (>60); Estimated Creatinine Clearance 83.04 ml/min; Globulin 4.1 g/dL (2.2-4.2); Glucose 133 mg/dL (74-106); Lipase 111 U/L (73-393); Potassium 3.6 mmol/L (3.5-5.1); Protein, Total 8.1 g/dL (6.4-8.2); Sodium Level 138 mmol/L (136-145)
--- NOTE | 2020-05-23 16:28 | HP.PCM_ITS ---
Problem List (1) Alcohol abuse Status: Chronic (2) Alcohol withdrawal Status: Acute History of Present Illness Date of Admission: 05/23/20 Chief Complaint: Requesting admission for alcohol detox. The patient is a 54 year old M with past medical history as mentioned above presented to the emergency room requesting admission for acute alcohol intoxication/withdrawal for medical stabilization. Patient stated that he drinks 2 pints of vodka every day and his last drink was this morning. Apart from mild anxiety, he had no other acute withdrawal symptoms. He said usually he gets severe withdrawal symptoms within 24 hours of stopping drinking alcohol. Back on Nov, 2019, he was admitted to the hospital for acute alcohol withdrawal, was discharged and he followed up with the [facility], remained clean for 90 days. During that time, he lost his mother, started drinking again and now he has been drinking every day over the last couple of months. He denied abdominal pain, cramps, nausea or diarrhea. He denied hallucinations. He denied tremors or shakiness. In the emergency department, his vital signs were stable. His routine blood work was unremarkable. LFT was unremarkable as well as lipase. Urine drug screen was negative. Blood alcohol level is pending at this time. He is being admitted for acute alcohol intoxication/withdrawal for medical stabilization. Past Medical History Past Medical History (Chronic Problems): Chronic Problems Alcohol abuse (Chronic) Allergies No Known Allergies Allergy (Verified 05/23/20 15:18) Home Medications: Ambulatory Orders Medication Instructions Recorded NK 05/23/20 Surgical History: no surgical history Psychiatric History: No pertinent psych hx Smoking Status: Current every day smoker Tobacco Use: Cigarettes Alcohol: Heavy Drugs: None - *Family History Maternal History Items: Cancer Sibling History Items: Cancer - sister had breast cancer Paternal History Items: No pertinent history Review of Systems Constitutional: Denies: Anorexia, Chills, Fever, Weakness Eyes: Denies: Blurred vision, Conjunctivae Inflammation, Double vision, Drainage, Redness HEENT: Denies: Difficulty Hearing, Ear Pain, Eye Pain, Nasal bleeding, Sore Throat Cardiovascular: Denies: Chest Pain, Claudication, Chest Pressure, Edema, Heaviness, Palpitations, Syncope Respiratory: Denies: Cough, Hemoptysis, Pleuritic Pain, Shortness of Breath, Sputum production, Wheezing Gastrointestinal: Denies: Abdominal Pain, Constipation, Diarrhea, Nausea, Vomiting Genitourinary: Denies: Dysuria, Frequency, Hematuria Musculoskeletal: Denies: Arm Pain, Back Pain, Foot Pain Skin: Denies: Dryness, Rash Neurological: Denies: Balance problems, Blurred vision, Double vision, Slurred speech, Confusion, Headaches, Incoordination Psychiatric: Reports: Anxiety. Denies: Depression Endocrine: Denies: Change in Body Habitus, Polydipsia, Polyuria VTE Information - Inpt Only VTE Present on Admission: No VTE Mechan Device Prophylaxis: None VTE Pharm Prophylaxis ordered?: No Patient Problems: Active and Suspected Problems Alcohol withdrawal (Acute) - Physical Exam Vitals/I&O's: Vital Signs Temp Pulse Resp BP Pulse Ox 97.6 F L 82 16 140/71 H 98 05/23/20 15:43 05/23/20 15:43 05/23/20 15:43 05/23/20 15:43 05/23/20 15:43 Oxygen Delivery Method Room Air Weight: 160 lb 0.889 oz Body Mass Index (BMI) 21.1 General: Alert, Oriented x3, Cooperative, No apparent distress HEENT: Atraumatic, PERRLA, EOMI, Normocephalic Oral: Moist Mucosa, No Gingival or Mucosal Lesions/ Ulcerations Neck: Supple, No JVD, Negative Carotid Bruits, Trachea Midline, Thyroid Normal Size and Texture Lungs: Clear to auscultation, Normal air movement, No rhonchi, No wheeze, No rales Cardiovascular: Regular rate, Regular Rhythm, Normal S1, Normal S2 Abdomen: Bowel Sounds Present, Soft, Non Tender, Non-Distended, No Hepato- splenomegaly Extremities: No clubbing, No cyanosis, No edema Skin: No rashes, No breakdown Lymphatic: No Cervical, Supraclavicular, or Inguinal Adenopathy Neurological: Cranial nerves II-XII grossly intact, Motor Exam 5/5 strength throughout Psych/Mental Status: Normal Affect, Appropriate, Alert and oriented to time, place, person, mood and affect Laboratory Results 05/23/20 15:36: WBC 8.1, RBC 4.49 L, Hgb 15.0, Hct 43.7, MCV 97.3 H, MCH 33.4 H, MCHC 34.3, RDW Std Deviation 53.3 H, RDW Coeff of Shad 14.7 H, Plt Count 251, MPV 10.1, Immature Gran % (Auto) 0.400, Neut % (Auto) 66.6, Lymph % (Auto) 23.9, [place]y % (Auto) 4.2, Eos % (Auto) 4.3, Baso % (Auto) 0.6, Absolute Neuts (auto) 5.4, Absolute Lymphs (auto) 1.94, Nucleated RBC % 0 05/23/20 15:36: Sodium 138, Potassium 3.6, Chloride 103, Carbon Dioxide 28.0, Anion Gap 7, BUN 14, Creatinine 1.02, Estim Creat Clear Calc 83.04, Est GFR (MDRD) Af Amer 97, Est GFR (MDRD) Non-Af 80, BUN/Creatinine Ratio 13.7, Glucose 133 H, Calcium 8.3 L, Total Bilirubin 0.80, AST 34, ALT 28, Alkaline Phosphatase 113, Total Protein 8.1, Albumin 4.0, Globulin 4.1, Albumin/Globulin Ratio 1.0, Lipase 111 05/23/20 15:36: Ethyl Alcohol Pending 05/23/20 15:41: Urine Opiates Screen NEGATIVE, Urine Methadone Screen NEGATIVE, Ur Barbiturates Screen NEGATIVE, Ur Phencyclidine Scrn NEGATIVE, Ur Amphetamines Screen NEGATIVE, U Methamphetamin-MDMA NEGATIVE, U Benzodiazepines Scrn NEGATIVE, Urine Cocaine Screen NEGATIVE, U Cannabinoids Screen NEGATIVE, Ur Drug Screen Comment Assessment/Plan All Active Problems Alcohol withdrawal (Acute) This is a 54 years old male patient presented to the emergency room requesting admission for acute alcohol intoxication/withdrawal for medical stabilization. #1 acute hypoxic sedation/withdrawal: Patient has been drinking 2 pints of vodka every day over the last couple of months. He was admitted for medical stabilization back on Nov, 2019 but relapsed. Vital signs are stable. Routine blood work as well as LFT and lipase were unremarkable. Urine drug screen was negative. Blood alcohol level is pending. Plan: Admit to [facility] floor, initiate alcohol withdrawal protocol with tapering phenobarbital, as needed Tylenol, Bentyl, Neurontin, Vistaril, Imodium, Zofran, trazodone, start daily thiamine folic acid, consult [facility] program. #2 tobacco abuse: NicoDerm patch. #3 DVT prophylaxis: Low risk patient, no prophylaxis indicated, ambulate. This note was generated with [employer] software. It may contain incorrect words, spelling, and punctuation that were not noted in checking the note before signing. Inpatient E&M: 94588 Init Hosp L2
[2020-05-23 16:42] VITALS: BP 121/64; PULSE 76; RESP 18; TEMP 37.1; O2SAT 98
[2020-05-23 17:39] VITALS: BMI 20.7
[2020-05-23 17:47] VITALS: BMI 20.8
[2020-05-23 17:57] VITALS: BP 125/71; PULSE 69; RESP 18; TEMP 36.9; O2SAT 98
[2020-05-23] MEDS: Phenobarbital 32.4 MG Tablet 64.8 MG PO ×2 (18:02→22:00)
[2020-05-24] VITALS: BP 123/72; PULSE 54; RESP 16; TEMP 36.7; O2SAT 98
[2020-05-24] MEDS: Phenobarbital 32.4 MG Tablet 64.8 MG PO ×6 (01:57→20:59)
[2020-05-24 03:58] VITALS: BP 127/77; PULSE 54; RESP 16; TEMP 36.4; O2SAT 98
--- NOTE | 2020-05-24 09:12 | PCM.PN.HOSP ---
Patient Problems: Active and Suspected Problems Alcohol withdrawal (Acute) Reason for Visit: alcohol withdrawal Subjective: Feels well. Complains of a mild headache. Vitals/I&O's: Vital Signs Temp Pulse Resp BP Pulse Ox 36.4 C L 54 L 16 127/77 H 98 05/24/20 03:58 05/24/20 03:58 05/24/20 03:58 05/24/20 03:58 05/24/20 03:58 Oxygen Delivery Method Room Air Weight: 71.532 kg Body Mass Index (BMI) 20.7 Intake and Output for Last 24 Hours 05/22/20 05/23/20 05/24/20 23:59 23:59 23:59 Intake Total 1099 / 1099 Balance 1099 General: Alert, No apparent distress HEENT: Atraumatic, Normocephalic Oral: Moist Mucosa, No Gingival or Mucosal Lesions/ Ulcerations Neck: No Nodes, Thyroid Normal Size and Texture Lungs: Clear to auscultation, Normal air movement, No rhonchi, No wheeze Cardiovascular: Regular rate, Regular Rhythm, Normal S1, Normal S2 Abdomen: Bowel Sounds Present, Soft, Non Tender, Non-Distended, No Hepato-splenomegaly Extremities: No edema, No Calf Tenderness Laboratory Results 05/23/20 15:36: WBC 8.1, RBC 4.49 L, Hgb 15.0, Hct 43.7, MCV 97.3 H, MCH 33.4 H, MCHC 34.3, RDW Std Deviation 53.3 H, RDW Coeff of Shad 14.7 H, Plt Count 251, MPV 10.1, Immature Gran % (Auto) 0.400, Neut % (Auto) 66.6, Lymph % (Auto) 23.9, [place] % (Auto) 4.2, Eos % (Auto) 4.3, Baso % (Auto) 0.6, Absolute Neuts (auto) 5.4, Absolute Lymphs (auto) 1.94, Nucleated RBC % 0 05/23/20 15:36: Sodium 138, Potassium 3.6, Chloride 103, Carbon Dioxide 28.0, Anion Gap 7, BUN 14, Creatinine 1.02, Estim Creat Clear Calc 83.04, Est GFR (MDRD) Af Amer 97, Est GFR (MDRD) Non-Af 80, BUN/Creatinine Ratio 13.7, Glucose 133 H, Calcium 8.3 L, Total Bilirubin 0.80, AST 34, ALT 28, Alkaline Phosphatase 113, Total Protein 8.1, Albumin 4.0, Globulin 4.1, Albumin/Globulin Ratio 1.0, Lipase 111 05/23/20 15:36: Ethyl Alcohol 128.0 05/23/20 15:41: Urine Opiates Screen NEGATIVE, Urine Methadone Screen NEGATIVE, Ur Barbiturates Screen NEGATIVE, Ur Phencyclidine Scrn NEGATIVE, Ur Amphetamines Screen NEGATIVE, U Methamphetamin-MDMA NEGATIVE, U Benzodiazepines Scrn NEGATIVE, Urine Cocaine Screen NEGATIVE, U Cannabinoids Screen NEGATIVE, Ur Drug Screen Comment Current Medications Acetaminophen (Acetaminophen 500 Mg Tablet) 500 mg PO Q4H PRN PRN PRN Reason: Temp > 100.4 F Dicyclomine HCl (Dicyclomine 10 Mg Capsule) 20 mg PO Q6H PRN PRN PRN Reason: abdominal discomfort Folic Acid (Folic Acid 1 Mg Tablet) 1 mg PO DAILY@0800 [facility] Gabapentin (Gabapentin 300 Mg Capsule) 300 mg PO Q8H PRN PRN PRN Reason: moderate to severe anxiety Hydroxyzine Pamoate (Hydroxyzine Shauna 25 Mg Capsule) 50 mg PO Q4H PRN PRN PRN Reason: mild anxiety Loperamide HCl (Loperamide 2 Mg Capsule) 2 mg PO Q4H PRN PRN PRN Reason: LOOSE STOOLS Nicotine (Nicotine 21 Mg Patch) 21 mg TRANSDERM. DAILY [facility] Nutritional Formula (Lactose Free) (Ensure Enlive 120 Ml Liquid) 120 ml PO 4X/DAY [facility] Last Admin: 05/23/20 22:00 Dose: 120 ml Documented by: Ondansetron HCl (Ondansetron 8 Mg Tablet) 8 mg PO Q8H PRN PRN PRN Reason: NAUSEA Phenobarbital (Phenobarbital 32.4 Mg Tablet) 97.2 mg PO Q4H [facility]; Taper Stop: 05/28/20 01:59 Last Admin: 05/24/20 07:32 Dose: 97.2 mg Documented by: Sodium Chloride (0.9% Saline Lock 10 Ml Syringe) 10 - 40 ml IV UD PRN PRN Reason: SALINE FLUSH Thiamine HCl (Thiamine Hydrochloride 100 Mg Tablet) 100 mg PO DAILYCM [facility] Trazodone HCl (Trazodone 100 Mg Tablet) 100 mg PO QHS PRN PRN Reason: INSOMNIA Medical Necessity - Tobacco Use Smoking Status: Current every day smoker Tobacco Use: Cigarettes Assessment/Plan All Active Problems Alcohol withdrawal (Acute) 1. acute alcohol withdrawal stable at this time. on phenobarbital taper continue with thiamine and folate ultimately, his plan is to go to [facility], but does not have anything established at present. Inpatient E&M: 89452 Subs Hosp L1
[2020-05-24 09:15] VITALS: BP 145/85; PULSE 79; RESP 18; TEMP 36.6; O2SAT 98
[2020-05-24] MEDS: Folic Acid 1 MG Tablet PO (09:22)
[2020-05-24] MEDS: Thiamine Hydrochloride 100 MG Tablet PO (09:22)
--- NOTE | 2020-05-24 10:09 | ADDICTION ---
This clinical writer met with patient, in his room, to conduct ASAM, MSE and AUDIT assessments and to plan for discharge. He participated appropriately and will admit into residential treatment at [facility] on 05/27/2020. He plans to discharge from [facility] on 05/26/2020 and will meet with his hydrometer calibrator and pack for residential. This clinical writer verified that patient will admit into residential treatment with [facility] director drug safety. Deon reports no need for transportation upon d/c from [facility]. Completed assessments to be faxed to [facility].
--- NOTE | 2020-05-24 10:53 | ADDICTION ---
Addendum entered by Ashleigh Chaudhary 05/24/20 10:56: incorrect documentation Original Note: This mortgage underwriter met with patient, in her room, to conduct ASAM, MSE and DUDIT assessments and to plan for discharge. Patient was cooperative. She is appropraite for the 4.0 LOC as evidenced by severe withdrawal symptoms and significant BMC/C. She refused residential recommendation but is willing to speak with her primary counselor about Intensive Outpatient. She has an appointment scheduled with Abelardo on 05/28 at 1pm. This mortgage underwriter will fax completed documentation to [facility].
[2020-05-24 14:17] VITALS: BP 137/99; PULSE 69; RESP 18; TEMP 36.7; O2SAT 97
[2020-05-24 20:45] VITALS: BP 133/98; PULSE 62; RESP 16; TEMP 36.4; O2SAT 99
[2020-05-24] MEDS: 0.9% Saline Lock 10 ML Syringe IV (20:58)
[2020-05-25] MEDS: Phenobarbital 32.4 MG Tablet 64.8 MG PO ×6 (02:45→22:53)
[2020-05-25 05:19] VITALS: BP 126/83; PULSE 79; RESP 16; TEMP 36.6; O2SAT 98
[2020-05-25 09:30] VITALS: BP 124/78; PULSE 68; RESP 16; TEMP 36.9; O2SAT 98
[2020-05-25] MEDS: Folic Acid 1 MG Tablet PO (09:37)
[2020-05-25] MEDS: Thiamine Hydrochloride 100 MG Tablet PO (09:37)
[2020-05-25 14:54] VITALS: BP 118/75; PULSE 77; RESP 18; TEMP 36.8; O2SAT 98
--- NOTE | 2020-05-25 15:03 | PCM.PN.HOSP ---
Patient Problems: Active and Suspected Problems Alcohol withdrawal (Acute) Reason for Visit: alcohol withdrawal Subjective: had some chills. No tremors. Vitals/I&O's: Vital Signs Temp Pulse Resp BP Pulse Ox 36.8 C 77 18 118/75 98 05/25/20 14:54 05/25/20 14:54 05/25/20 14:54 05/25/20 14:54 05/25/20 14:54 Oxygen Delivery Method Room Air Weight: 71.532 kg Body Mass Index (BMI) 20.7 Intake and Output for Last 24 Hours 05/23/20 05/24/20 05/25/20 23:59 23:59 23:59 Intake Total 2500 / 2500 Balance 2500 / 2500 General: Alert, No apparent distress HEENT: Atraumatic, Normocephalic Psych/Mental Status: Normal Affect, Appropriate Current Medications Acetaminophen (Acetaminophen 500 Mg Tablet) 500 mg PO Q4H PRN PRN PRN Reason: Temp > 100.4 F Dicyclomine HCl (Dicyclomine 10 Mg Capsule) 20 mg PO Q6H PRN PRN PRN Reason: abdominal discomfort Folic Acid (Folic Acid 1 Mg Tablet) 1 mg PO DAILY@0800 [facility] Last Admin: 05/25/20 09:37 Dose: 1 mg Documented by: Gabapentin (Gabapentin 300 Mg Capsule) 300 mg PO Q8H PRN PRN PRN Reason: moderate to severe anxiety Hydroxyzine Pamoate (Hydroxyzine Shauna 25 Mg Capsule) 50 mg PO Q4H PRN PRN PRN Reason: mild anxiety Loperamide HCl (Loperamide 2 Mg Capsule) 2 mg PO Q4H PRN PRN PRN Reason: LOOSE STOOLS Nicotine (Nicotine 21 Mg Patch) 21 mg TRANSDERM. DAILY [facility] Last Admin: 05/25/20 09:37 Dose: 21 mg Documented by: Nutritional Formula (Lactose Free) (Ensure Enlive 120 Ml Liquid) 120 ml PO 4X/DAY [facility] Last Admin: 05/25/20 14:53 Dose: 120 ml Documented by: Ondansetron HCl (Ondansetron 8 Mg Tablet) 8 mg PO Q8H PRN PRN PRN Reason: NAUSEA Phenobarbital (Phenobarbital 32.4 Mg Tablet) 64.8 mg PO Q4H [facility]; Taper Stop: 05/28/20 01:59 Last Admin: 05/25/20 14:52 Dose: 64.8 mg Documented by: Sodium Chloride (0.9% Saline Lock 10 Ml Syringe) 10 - 40 ml IV UD PRN PRN Reason: SALINE FLUSH Last Admin: 05/24/20 20:58 Dose: 10 ml Documented by: Thiamine HCl (Thiamine Hydrochloride 100 Mg Tablet) 100 mg PO DAILYCM [facility] Last Admin: 05/25/20 09:37 Dose: 100 mg Documented by: Trazodone HCl (Trazodone 100 Mg Tablet) 100 mg PO QHS PRN PRN Reason: INSOMNIA STROKE Vital Signs/Narrative: Vital Signs Temp Pulse Resp BP Pulse Ox 05/25/20 14:54 36.8 C 77 18 118/75 98 Medical Necessity - Tobacco Use Smoking Status: Current every day smoker Tobacco Use: Cigarettes Assessment/Plan All Active Problems Alcohol withdrawal (Acute) 1. acute alcohol withdrawal stable at this time. on phenobarbital taper continue with thiamine and folate ultimately, his plan is to go to [facility]. Appointment set up on 05/28, but he states that he has an appointment for 05/27, too. Monitor overnight, if improved, then will DC on 05/26. Inpatient E&M: 03718 Subs Hosp L1
[2020-05-25 22:45] VITALS: BP 118/73; PULSE 73; RESP 20; TEMP 36.5; O2SAT 97
[2020-05-25 23:00] VITALS: PULSE 64
[2020-05-26 01:31] VITALS: BP 119/75; PULSE 70; RESP 16; TEMP 36.4; O2SAT 98
[2020-05-26] MEDS: Phenobarbital 32.4 MG Tablet 64.8 MG PO ×2 (01:47→08:38)
[2020-05-26 01:54] VITALS: RESP 16
[2020-05-26 08:33] VITALS: BP 122/69; PULSE 74; RESP 16; TEMP 36.5; O2SAT 98
[2020-05-26] MEDS: Thiamine Hydrochloride 100 MG Tablet PO (08:35)
[2020-05-26] MEDS: Folic Acid 1 MG Tablet PO (08:40)
--- NOTE | 2020-05-26 09:23 | DCINST_ITS ---
- Discharge Diagnoses Current Active Problems: Current Active and Chronic Problems Alcohol abuse (Chronic) Alcohol withdrawal (Acute) You will use the following diet at home:: No restrictions Your food should be the consistency of: Regular Allergies/Adverse Reactions: Allergies No Known Allergies Allergy (Verified 05/23/20 15:18) Medications to take at Discharge Multivitamin 1 each PO DAILY #1 tablet 05/26/20 The following prescriptions were given: Multivitamin 1 each PO DAILY #1 tablet Primary Care Physician: Care Physician,No Primary [Primary Care Provider] - Test Results: Test results from this visit will be discussed in further detail at your follow- up appointment, if applicable. Please Follow Up With: one [facility] When: 05/28 at 1 pm and your appointment on 05/27
--- NOTE | 2020-05-26 09:24 | DS.PCM_ITS ---
Discharge Date and Diagnosis - Problem List Patient Problems: Active and Suspected Problems Alcohol withdrawal (Acute) Date of Admission: 05/23/20 Date of Discharge: 05/26/20 - Primary Discharge Diagnosis Acute Problems: Active Problems Alcohol withdrawal (Acute) - Secondary Discharge Diagnosis Chronic Problems: Chronic Problems Alcohol abuse (Chronic) Hospital Course and Treatment Operations: None Procedures: None Summary of Care Provided: The patient is a 54 year old Mary Siddiqi seeking treatment for acute alcohol withdrawal. Patient informed that he drank 2 pints of vodka daily. Last drink was the morning of admission. Patient was having some anxiety but was otherwise having some uncomplicated withdrawal. Patient was admitted and started on phenobarbital. His course was uncomplicated and patient was monitored. Discussed with the patient today about discharge and he feels comfortable being discharged and that he would go with family and he feels that he would be of low risk to resume drinking alcohol given the support network. Patient was evaluated by addiction medicine and set up an appointment with counselor on the third. Patient also states that he has an appointment on the second to start initiating the program. Patient advised to keep both those appointments. [] Patient Problems: Active and Suspected Problems Alcohol withdrawal (Acute) - Physical Exam Vitals/I&O's: Vital Signs Temp Pulse Resp BP Pulse Ox 36.5 C L 74 16 122/69 H 98 05/26/20 08:33 05/26/20 08:33 05/26/20 08:33 05/26/20 08:33 05/26/20 08:33 Oxygen Delivery Method Room Air Weight: 71.532 kg Body Mass Index (BMI) 20.7 Intake and Output for Last 24 Hours 05/24/20 05/25/20 05/26/20 23:59 23:59 22:59 Intake Total 2500 / 2500 890 / 890 Output Total 1400 / 1400 Balance 2500 / 2500 -510 / -510 General: Alert, Cooperative, No apparent distress HEENT: Atraumatic, Normocephalic Oral: Moist Mucosa, No Gingival or Mucosal Lesions/ Ulcerations Current Medications Acetaminophen (Acetaminophen 500 Mg Tablet) 500 mg PO Q4H PRN PRN PRN Reason: Temp > 100.4 F Dicyclomine HCl (Dicyclomine 10 Mg Capsule) 20 mg PO Q6H PRN PRN PRN Reason: abdominal discomfort Folic Acid (Folic Acid 1 Mg Tablet) 1 mg PO DAILY@0800 CONNIE Last Admin: 05/26/20 08:40 Dose: 1 mg Documented by: Gabapentin (Gabapentin 300 Mg Capsule) 300 mg PO Q8H PRN PRN PRN Reason: moderate to severe anxiety Hydroxyzine Pamoate (Hydroxyzine Shauna 25 Mg Capsule) 50 mg PO Q4H PRN PRN PRN Reason: mild anxiety Loperamide HCl (Loperamide 2 Mg Capsule) 2 mg PO Q4H PRN PRN PRN Reason: LOOSE STOOLS Nicotine (Nicotine 21 Mg Patch) 21 mg TRANSDERM. DAILY REPLACED BY [facility] Last Admin: 05/26/20 08:35 Dose: 21 mg Documented by: Nutritional Formula (Lactose Free) (Ensure Enlive 120 Ml Liquid) 120 ml PO 4X/DAY REPLACED BY [facility] Last Admin: 05/26/20 08:38 Dose: 120 ml Documented by: Ondansetron HCl (Ondansetron 8 Mg Tablet) 8 mg PO Q8H PRN PRN PRN Reason: NAUSEA Phenobarbital (Phenobarbital 32.4 Mg Tablet) 64.8 mg PO Q6H REPLACED BY [facility]; Taper Stop: 05/28/20 01:59 Last Admin: 05/26/20 08:38 Dose: 64.8 mg Documented by: Sodium Chloride (0.9% Saline Lock 10 Ml Syringe) 10 - 40 ml IV UD PRN PRN Reason: SALINE FLUSH Last Admin: 05/24/20 20:58 Dose: 10 ml Documented by: Thiamine HCl ([facility] Hydrochloride 100 Mg Tablet) [facility] Last Admin: 05/26/20 08:35 Dose: 100 mg Documented by: Trazodone HCl (Trazodone 100 Mg Tablet) 100 mg PO QHS PRN PRN Reason: INSOMNIA Discharge Diet: No Restrictions Home Medications: Medications to take at Discharge Multivitamin 1 each PO DAILY #1 tablet 05/26/20 Following Prescriptions Were Given to Patient: Multivitamin 1 each PO DAILY #1 tablet Primary Care Physician: Care Physician,No Primary [Primary Care Provider] - Please Follow Up With: [facility] When: 05/28 at 1 pm and your appointment on 05/27 Disposition: Home Minutes spent on discharge:: 28 Patient Condition:: Good Medical Necessity - Tobacco Use Smoking Status: Current every day smoker Tobacco Use: Cigarettes Meaningful Use Info Meaningful Use Diagnoses (Choose all that apply): None applicable Inpatient E&M: 17895 [facility]
[2020-05-26 12:31] VITALS: BP 117/79; PULSE 80; RESP 18; TEMP 36.6; O2SAT 98
== END 2020-05-26 13:00 | disposition home or self-care (01) | DRG 775 ==
LOC: ED 16:26 → MS3 05-24 07:04
PROVIDERS: Admitting Provider Hospitalist; Emergency Provider Emergency Medicine
DX: F10.229 Alcohol dependence with intoxication, unspecified (principal); F17.210 Nicotine dependence, cigarettes, uncomplicated; R09.02 Hypoxemia
CPT/HCPCS: 80053; 80307; 80320; 83690; 85025; 97802; 99218; 99283; 99406; A4216; G0378; G0480

== ENCOUNTER 2021-01-29 16:14 | Observation (INO) | payer MEDICAID, SELFPAY ==
[2021-01-29 16:15] VITALS: BP 140/89; PULSE 89; RESP 18; TEMP 36; O2SAT 93; BMI 20.8
--- NOTE | 2021-01-29 16:39 | EDS_ITS ---
HPI History of Present Illness Chief Complaint: Substance Abuse Narrative Narrative: Patient presents with wish to detox from alcohol. He drinks 1 to 2 pints of diluted vodka every day. He did drink 3-4 shots today. He does not have any withdrawal symptoms. [facility] Medical History (Updated 01/29/21 @ 17:[address] Marty Lui MD) Alcoholism Home Medications NK 01/29/21 [History Last Taken Unknown] Allergy/AdvReac Type Severity Reaction Status Date / Time No Known Allergies Allergy Verified 01/29/21 16:16 Social History Smoking Status: Current every day smoker tobacco type: cigarettes ROS ROS ED ROS Narrative Past medical history: Reviewed, includes prior alcohol addictions Medications: Reviewed Social history: As in HPI Review of systems: All systems negative except as indicated General: No fever Eyes: No visual changes ENT: No upper airway congestion, normal voice Neck: No neck pain Cardiovascular: No chest pain Respiratory: No shortness of breath or cough Gastrointestinal: No abdominal pain, nausea vomiting or diarrhea Genitourinary: No dysuria Musculoskeletal: Denies myalgias no difficulty with ambulation Skin: No rash Neurological: No memory loss, confusion or any focal weakness Psych: No recent behavioral changes Hematologic: No easy bleeding or easy bruising EXAM Physical Exam Narrative Exam Narrative: Physical exam General: Patient appears chronically ill Head: Normocephalic, Atraumatic Eyes: Conjunctiva not pale ENT: Moist mucous membranes Neck: Supple, Nontender, No lymphadenopathy Cardiovascular: Regular rate, Regular rhythm Respiratory: No distress, CTA bilaterally Abdomen: Soft, Nontender, Nondistended Back: Nontender, Normal Inspection. Negative for: CVA tenderness Extremities: Nontender, No edema Skin: Normal color, No rash Neurological: Alert, Normal Strength, Normal Sensation Psychological: flat affect Const Vital Signs: 01/29/21 16:15 01/29/21 16:41 01/29/21 17:24 Temperature 96.8 F L Temperature Source Temporal Pulse Rate 89 90 Respiratory Rate 18 16 Blood Pressure 140/89 H 141/87 H Blood Pressure Mean 106 105 Pulse Ox 93 100 Oxygen Delivery Method Room Air Nasal Cannula MDM MDM MDM Narrative Medical decision making narrative: I discussed with the hospitalist for admission. Lab Data Labs: Laboratory Results - last 24 hr 01/29/21 01/29/21 01/29/21 16:47 16:47 16:55 WBC 7.4 RBC 4.32 L Hgb 14.6 Hct 42.4 MCV 98.1 H MCH 33.8 H MCHC 34.4 RDW Std Deviation 47.6 H RDW Coeff of Shad 13.2 Plt Count 186 MPV 10.0 Immature Gran % (Auto) 0.400 Neut % (Auto) 62.4 Lymph % (Auto) 22.8 [place] % (Auto) 9.2 Eos % (Auto) 4.5 Baso % (Auto) 0.7 Absolute Neuts (auto) 4.6 Absolute Lymphs (auto) 1.68 Nucleated RBC % 0 Sodium 139 Potassium 3.7 Chloride 105 Carbon Dioxide 27.0 Anion Gap 7 BUN 12 Creatinine 0.78 Estim Creat Clear Calc 103.01 Est GFR (MDRD) Af Amer 132 Est GFR (MDRD) Non-Af 109 BUN/Creatinine Ratio 15.4 Glucose 84 Calcium 8.2 L Total Bilirubin 0.50 AST 43 H ALT 36 Alkaline Phosphatase 105 Total Protein 8.2 Albumin 3.9 Globulin 4.3 H Albumin/Globulin Ratio 0.9 Urine Opiates Screen NEGATIVE Urine Methadone Screen NEGATIVE Ur Barbiturates Screen NEGATIVE Ur Phencyclidine Scrn NEGATIVE Ur Amphetamines Screen NEGATIVE U Methamphetamin-MDMA NEGATIVE U Benzodiazepines Scrn NEGATIVE Urine Cocaine Screen NEGATIVE U Cannabinoids Screen NEGATIVE Ur Drug Screen Comment Discharge Plan Triage Chief Complaint: Substance Abuse ED Provider: Marty Lui Dx/Rx/DC Orders Clinical Impression: Alcohol withdrawal Prescriptions: No Action NK RF: 0 Primary Care Provider: Care Physician,No Primary Referrals: Care Physician,No Primary [Primary Care Provider] - Disposition Disposition: Acute Care Hospital [facility]
--- NOTE | 2021-01-29 16:57 | ED.RN ---
pt withdrawl score is currently zero. meds on hold.
--- NOTE | 2021-01-29 17:15 | CM.ED ---
SOCIAL WORK Referral Source: Self-referral Reason for Consult: Substance Abuse-requesting detox from alcohol Met with patient in room. Introduced role and reason for referral. Patient reports last drink today. Patient states has been to [facility] in the past. Patient has completed [facility] agreement with nurse. This worker to update [facility] upon admission. Plan: Admit to [facility] D. MS ChristianaW, EDUCATION LIAISON
[2021-01-29 17:16] LABS: Absolute Lymphocyte Count 1.68 X10^3/uL (0.83-4.51); Absolute Neutrophil Count 4.6 X10^3/uL (2.0-7.7); Basophil# 0.05 X10^3/uL; Basophil% 0.7 % (0-1); Eosinophil# 0.33 X10^3/uL; Eosinophils% 4.5 % (0-5); Hematocrit 42.4 % (40-54); Hemoglobin 14.6 g/dL (13.0-16.5); Lymphocyte # 1.68 X10^3/ul (0.83-4.51); Lymphocyte % 22.8 % (19-41); Mean Corp Hgb Conc 34.4 g/dL (32-36); Mean Corpuscular Hgb 33.8 pg (27.0-32.0); Mean Corpuscular Volume 98.1 fL (80-94); Monocyte# 0.68 X10^3/uL; Monocyte% 9.2 % (0-10); NRBC Flagged by Analyzer 0 % (0-5); Neutrophil # 4.61 X10^3/uL (2.7-7.7); Neutrophil % 62.4 % (47-70); Platelet Count 186 K/mm3 (150-450); RBC Distribution Width CV 13.2 % (11.6-14.6); RBC Distribution Width SD 47.6 fl (35.1-43.9); Red Blood Count 4.32 M/mm3 (4.6-6.2); White Blood Count 7.4 K/mm3 (4.4-11.0)
[2021-01-29 17:24] VITALS: BP 141/87; PULSE 90; RESP 16; O2SAT 100
[2021-01-29 17:26] LABS: ALB/GLOB Ratio 0.9 RATIO (0.9-2.4); AST(SGOT) 43 U/L (15-37); Alanine Aminotransfer ALT/SGPT 36 U/L (16-61); Albumin, Serum 3.9 g/dL (3.2-5.0); Alkaline Phosphatase 105 U/L (45-117); Anion Gap 7 (5-15); BUN 12 mg/dL (7-18); BUN/Creat Ratio 15.4 RATIO (10-20); Calcium,Total 8.2 mg/dL (8.5-10.1); Chloride 105 mmol/L (98-107); Creatinine, Serum 0.78 mg/dL (0.70-1.30); EST Glomerular Filtration Rate 109 mL/min (>60); Est Glom Filt Rate - Afr Amer 132 mL/min (>60); Estimated Creatinine Clearance 103.01 ml/min; Globulin 4.3 g/dL (2.2-4.2); Glucose 84 mg/dL (74-106); Potassium 3.7 mmol/L (3.5-5.1); Protein, Total 8.2 g/dL (6.4-8.2); Sodium Level 139 mmol/L (136-145)
[2021-01-29 17:31] LABS: Amphetamine Urine VISTA NEGATIVE (<1000 ng/mL); Barbiturate Urine VISTA NEGATIVE (< 200 ng/mL); Benzodiazepine Urine VISTA NEGATIVE (< 200 ng/mL); Cocaine Urine VISTA NEGATIVE (< 300 ng/mL); Ecstacy Urine VISTA NEGATIVE (< 500 ng/mL); Methadone Urine VISTA NEGATIVE (< 300 ng/mL); PCP Urine VISTA NEGATIVE (< 25 ng/mL); THC Urine VISTA NEGATIVE (< 50 ng/mL); Vista UDS pH Range 5
--- NOTE | 2021-01-29 17:35 | HP.PCM.HOS_ITS ---
HPI - General HPI Narrative AMANDA KOROMA, is a 55 M with a PMH as outlined who was admitted via the ED on 01/29/2021 for detox from alcohol. Patient drinks 1-2 pints of vodka daily with his last drink being on the day of admission. He denied nausea, tremors, fever, chills, chest pain, palpitations, dizziness. Review of systems is otherwise negative. He doesnt use any other drugs. On admission, vitals showed BP of 141/87, [place] of 90 and RR of 16 and he was saturating at 100% on room air. CBC was essentially unremarkable. Chemistry was also unremarkable and urine tox was negative. Serum alcohol level was pending at time of review. He has been admitted to be managed for acute alcohol detox. [facility] Medical History (Updated 01/29/21 @ 17:[address] Marty Lui MD) Alcoholism Home Medications NK 01/29/21 [History Last Taken Unknown] Allergy/AdvReac Type Severity Reaction Status Date / Time No Known Allergies Allergy Verified 01/29/21 16:16 Social History Smoking Status: Current every day smoker tobacco type: cigarettes ROS Review of Systems ROS Unobtainable: Denies due to encephalopathy Constitutional Constitutional: Denies anorexia, change in weight, fatigue, fever(s) or malaise Eyes Eyes: Denies double vision ENT HEENT: Denies abnormal hearing, hearing loss, nasal congestion or nasal discharge Cardiovascular Cardiovascular: Denies chest pain, dyspnea on exertion, edema, lightheadedness, orthopnea, palpitations or rapid heart rate Respiratory/Chest Respiratory/Chest: Denies cough, dyspnea, hemoptysis, productive cough, shortness of breath at rest or shortness of breath with exertion Gastrointestinal Gastrointestinal: Denies abdominal pain, diarrhea, nausea or vomiting Genitourinary Genitourinary: Denies burning urination or urinary frequency Musculoskeletal Musculoskeletal: Denies back pain Neurologic Neurologic: Denies abnormal speech, confusion, dizziness or focal weakness Psychiatric Psychiatric: Denies anxiety or depression Vital Signs Vital Signs Vital Signs: 01/29/21 16:15 01/29/21 16:41 01/29/21 17:24 Temperature 96.8 F L Temperature Source Temporal Pulse Rate 89 90 Respiratory Rate 18 16 Blood Pressure 140/89 H 141/87 H Blood Pressure Mean 106 105 Pulse Ox 93 100 Oxygen Delivery Method Room Air Nasal Cannula Weight Weight: 153 lb 10.595 oz Body Mass Index (BMI) 20.8 Physical Exam Const alert, oriented x3 and no apparent distress General Appearance: cooperative HEENT normocephalic, head/scalp atraumatic and hearing grossly normal bilaterally Eyes PERRL, EOMs intact bilaterally and conjunctivae normal Neck no lymphadenopathy Resp normal respiratory effort, no retractions, no use of accessory muscles and clear to auscultation bilaterally Cardio regular rate, regular rhythm, S1 normal heart sound, S2 normal heart sound and no murmurs GI normal to inspection, nondistended, normoactive bowel sounds, soft to palpation, non-tender and non-distended Extremity normal to inspection, full ROM and no clubbing, cyanosis or edema Peripheral Pulses: Yes pulses 2+ throughout Skin no rashes or lesions noted Neuro oriented x3 Sensorium / Orientation: awake and alert Psych affect normal Results Lab / Micro Data Result Diagrams: 01/29/21 16:47 01/29/21 16:47 Labs: Laboratory Results - last 24 hr 01/29/21 01/29/21 01/29/21 16:47 16:47 16:55 WBC 7.4 RBC 4.32 L Hgb 14.6 Hct 42.4 MCV 98.1 H MCH 33.8 H MCHC 34.4 RDW Std Deviation 47.6 H RDW Coeff of Shad 13.2 Plt Count 186 MPV 10.0 Immature Gran % (Auto) 0.400 Neut % (Auto) 62.4 Lymph % (Auto) 22.8 [place] % (Auto) 9.2 Eos % (Auto) 4.5 Baso % (Auto) 0.7 Absolute Neuts (auto) 4.6 Absolute Lymphs (auto) 1.68 Nucleated RBC % 0 Sodium 139 Potassium 3.7 Chloride 105 Carbon Dioxide 27.0 Anion Gap 7 BUN 12 Creatinine 0.78 Estim Creat Clear Calc 103.01 Est GFR (MDRD) Af Amer 132 Est GFR (MDRD) Non-Af 109 BUN/Creatinine Ratio 15.4 Glucose 84 Calcium 8.2 L Total Bilirubin 0.50 AST 43 H ALT 36 Alkaline Phosphatase 105 Total Protein 8.2 Albumin 3.9 Globulin 4.3 H Albumin/Globulin Ratio 0.9 Urine Opiates Screen NEGATIVE Urine Methadone Screen NEGATIVE Ur Barbiturates Screen NEGATIVE Ur Phencyclidine Scrn NEGATIVE Ur Amphetamines Screen NEGATIVE U Methamphetamin-MDMA NEGATIVE U Benzodiazepines Scrn NEGATIVE Urine Cocaine Screen NEGATIVE U Cannabinoids Screen NEGATIVE Ur Drug Screen Comment Assessment & Plan Assessment/Plan (1) Alcohol withdrawal: (2) Alcohol abuse: PLAN: #Acute alcohol detox * Admit to MedSurg * Start alcohol withdrawal protocol with phenobarbital * Thiamine, folic acid and multivites * adjunctive medications for supportive treatment as per order set * DVT prophylaxis: low risk. Encourage ambulation. Charges/Coding Visit Charges Inpatient E&M: 83139 Init Hosp L3
--- NOTE | 2021-01-29 17:36 | NURSING ---
DR NAYELY PINEDA
--- NOTE | 2021-01-29 17:52 | NURSING ---
MED SURG DR ADLER ALCOHOL DETOX
--- NOTE | 2021-01-29 18:04 | CM.ED ---
SOCIAL WORK Call to [facility] Treatment Navigator, Whitney. Updated on patient's admission to [facility] and room number. Whitney reports will update Jennifer. Tiffanie Villeda, BRIDGE DESIGN ENGINEER, FISH SKINNING MACHINE FEEDER
[2021-01-29 18:41] VITALS: BP 123/82; PULSE 63; RESP 16; TEMP 36.2; O2SAT 98
[2021-01-29] MEDS: Phenobarbital 32.4 MG Tablet 64.8 MG PO ×2 (19:08→22:24)
[2021-01-29 19:10] VITALS: BP 122/74; PULSE 67; RESP 18; TEMP 36.6; O2SAT 96
[2021-01-29] MEDS: traZODone 100 MG Tablet PO (22:24)
[2021-01-29 22:25] VITALS: BP 117/73; PULSE 70; RESP 16; TEMP 36.8; O2SAT 96
[2021-01-30 02:44] VITALS: BP 128/75; PULSE 71; RESP 16; TEMP 36.6; O2SAT 100
[2021-01-30] MEDS: Phenobarbital 32.4 MG Tablet 64.8 MG PO ×6 (02:48→21:49)
[2021-01-30 06:35] VITALS: BP 131/81; PULSE 63; RESP 16; TEMP 36.4; O2SAT 97
[2021-01-30] MEDS: Methocarbamol 750 MG Tablet 1500 MG PO (06:41)
[2021-01-30 07:25] VITALS: PULSE 70
[2021-01-30] MEDS: Multivitamins,Ther W-Minerals Tablet 1 TABLET PO (07:33)
[2021-01-30] MEDS: Thiamine Hydrochloride 100 MG Tablet PO (07:34)
[2021-01-30] MEDS: Folic Acid 1 MG Tablet PO (07:34)
--- NOTE | 2021-01-30 07:35 | PN.HOSP_ITS ---
Subjective Subjective Patient seen and examined. He had no active complaints and review of systems is otherwise negative. He has remained hemodynamically stable. Objective Data Objective Data Vital Signs: Vital Signs Temp Pulse Resp BP Pulse Ox 97.5 F L 70 16 131/81 H 97 01/30/21 06:35 01/30/21 07:25 01/30/21 06:35 01/30/21 06:35 01/30/21 06:35 Oxygen Delivery Method Room Air Weight: 152 lb Body Mass Index (BMI) 20.0 Intake & Output: Intake and Output for Last 24 Hours 01/28/21 01/29/21 01/30/21 23:59 23:59 23:59 Intake Total 1240 / 1240 Balance 1240 / 1240 Lab / Micro Data Result Diagrams: 01/29/21 16:47 01/29/21 16:47 Labs: Laboratory Results - last 24 hr 01/29/21 01/29/21 01/29/21 16:47 16:47 16:47 WBC 7.4 RBC 4.32 L Hgb 14.6 Hct 42.4 MCV 98.1 H MCH 33.8 H MCHC 34.4 RDW Std Deviation 47.6 H RDW Coeff of Shad 13.2 Plt Count 186 MPV 10.0 Immature Gran % (Auto) 0.400 Neut % (Auto) 62.4 Lymph % (Auto) 22.8 [place] % (Auto) 9.2 Eos % (Auto) 4.5 Baso % (Auto) 0.7 Absolute Neuts (auto) 4.6 Absolute Lymphs (auto) 1.68 Nucleated RBC % 0 Sodium 139 Potassium 3.7 Chloride 105 Carbon Dioxide 27.0 Anion Gap 7 BUN 12 Creatinine 0.78 Estim Creat Clear Calc 103.01 Est GFR (MDRD) Af Amer 132 Est GFR (MDRD) Non-Af 109 BUN/Creatinine Ratio 15.4 Glucose 84 Calcium 8.2 L Total Bilirubin 0.50 AST 43 H ALT 36 Alkaline Phosphatase 105 Total Protein 8.2 Albumin 3.9 Globulin 4.3 H Albumin/Globulin Ratio 0.9 Urine Opiates Screen Urine Methadone Screen Ur Barbiturates Screen Ur Phencyclidine Scrn Ur Amphetamines Screen U Methamphetamin-MDMA U Benzodiazepines Scrn Urine Cocaine Screen U Cannabinoids Screen Ur Drug Screen Comment Ethyl Alcohol 280.0 01/29/21 16:55 WBC RBC Hgb Hct MCV MCH MCHC RDW Std Deviation RDW Coeff of Shad Plt Count MPV Immature Gran % (Auto) Neut % (Auto) Lymph % (Auto) [place] % (Auto) Eos % (Auto) Baso % (Auto) Absolute Neuts (auto) Absolute Lymphs (auto) Nucleated RBC % Sodium Potassium Chloride Carbon Dioxide Anion Gap BUN Creatinine Estim Creat Clear Calc Est GFR (MDRD) Af Amer Est GFR (MDRD) Non-Af BUN/Creatinine Ratio Glucose Calcium Total Bilirubin AST ALT Alkaline Phosphatase Total Protein Albumin Globulin Albumin/Globulin Ratio Urine Opiates Screen NEGATIVE Urine Methadone Screen NEGATIVE Ur Barbiturates Screen NEGATIVE Ur Phencyclidine Scrn NEGATIVE Ur Amphetamines Screen NEGATIVE U Methamphetamin-MDMA NEGATIVE U Benzodiazepines Scrn NEGATIVE Urine Cocaine Screen NEGATIVE U Cannabinoids Screen NEGATIVE Ur Drug Screen Comment Ethyl Alcohol Physical Exam Const alert, oriented x3 and no apparent distress General Appearance: cooperative Exam Limitations: no limitations HEENT normocephalic, head/scalp atraumatic, hearing grossly normal bilaterally and moist oral mucous membranes Head and Scalp: normocephalic Eyes PERRL, EOMs intact bilaterally and conjunctivae normal Neck no lymphadenopathy Resp normal respiratory effort, no retractions, no use of accessory muscles and clear to auscultation bilaterally Cardio regular rate, regular rhythm, S1 normal heart sound, S2 normal heart sound and n o murmurs GI normal to inspection, nondistended, normoactive bowel sounds, soft to palpation, non-tender and non-distended Extremity normal to inspection, full ROM and no clubbing, cyanosis or edema Peripheral Pulses: Yes pulses 2+ throughout Skin no rashes or lesions noted Neuro oriented x3 Sensorium / Orientation: awake and alert Psych affect normal Assessment & Plan Assessment/Plan (1) Alcohol withdrawal: (2) Alcohol abuse: PLAN: #Acute alcohol detox * on alcohol withdrawal protocol with phenobarbital * Thiamine, folic acid and multivites * adjunctive medications for supportive treatment as per order set * DVT prophylaxis: low risk. Encourage ambulation. Charges/Coding Visit Charges Inpatient E&M: 99717 Subs Hosp L2
--- NOTE | 2021-01-30 10:14 | ADDICTION ---
This financial underwriter met with PT to conduct ASAM, MSE, AUDIT assessments and to plan for d/c. All assessments completed, faxed to [facility] and placed in PT's chart. PT to d/c to home and plans to f/u with [facility] for assessment/counseling.
[2021-01-30 10:37] VITALS: BP 132/79; PULSE 68; RESP 18; TEMP 36.9; O2SAT 99
--- NOTE | 2021-01-30 13:02 | EX.NTREPO ---
Medical Nutrition Therapy - History Nutrition Services has been consulted to:: Manage nutrient details of diet order Current diet/nutrition support order:: Regular - general diet. Regular food consistency. Regular/thin liquid consistency. Ensure enlive 120mL PO 4x/day at [facility]. - Anthropometric Measurements Height:: 6 ft 1 in Weight:: 68.946 kg Body Mass Index (BMI):: 20.0 - Relevant Labs Relevant Labs:: RBC 4.32 M/mm3 (4.6-6.2) L 01/29/21 16:47 MCV 98.1 fL (80-94) H 01/29/21 16:47 MCH 33.8 pg (27.0-32.0) H 01/29/21 16:47 RDW Std Deviation 47.6 fl (35.1-43.9) H 01/29/21 16:47 Calcium 8.2 mg/dL (8.5-10.1) L 01/29/21 16:47 AST 43 U/L (15-37) H 01/29/21 16:47 Globulin 4.3 g/dL (2.2-4.2) H 01/29/21 16:47 - Assessment Food and Nutrient Intake: Pt reports that he consumes 1-2 pints of vodka per day. States that he doesn't eat regular meals when he's smoking and drinking. States that he regularly consumes 1 meal per day. Pt reports that he realized he has been losing weight and attributes it to his drinking and smoking. Reports that he has lost weight unintentionally in 1 month. Pt's UBW is 160# and CBW is 152# representing 8#/5% weight loss x1 month. - Nutrition Diagnosis: Intake Problem Inadequate Oral Intake Intake Problem - Etiology: r/t inadequate protein-energy intake d/t alcohol abuse Intake Problem - Signs/Symptoms: as evidenced by pt report of decreased appetite when consuming alcohol and 8#/5% weight loss x1 month. Status: Active Problem - Nutrition Diagnosis: Clinical Problem Chronic Disease or Condition Related Malnutrition Clinical Problem - Etiology: moderate malnutrition in context of inadequate protein intake and lack of nutrient dense foods w/ excessive alcohol intake Clinical Problem - Signs/Symptoms: as evidenced by unintentional wt loss of 8#/5% x 1 month, estimated nutritional intake meeting <75% of estimated needs >3 months, reported consumption of 1-2 pints vodka/day Status: Active Problem - Protein Calorie Malnutrition Evidence of Malnutrition Exists: Yes Moderate Protein Calorie Malnutrition: Social/Behavioral/Environmental - Nutrition Intervention Nutrition Prescription: 2,000-2,200kacl/day (RMR x 1.3). Protein 70-80g/day (1.0g/kg). Fluid 2,100-2,300mL/day (30mL/kg) - Food / Nutrient Delivery Interventions Summary of nutrition intervention:: Provide oral nutrition supplement Nutrition support ordered as / adjusted to:: Continue regular - general diet. Continue ensure enlive 120mL PO 4x/day at [facility]. - MNT Monitoring Active Nutrition Patient: Yes Nutrition Status: Requires Follow Up 3-5 Days
[2021-01-30 14:30] VITALS: BP 130/84; PULSE 61; RESP 16; TEMP 36.5; O2SAT 98
[2021-01-30 21:56] VITALS: BP 120/72; PULSE 58; RESP 16; TEMP 36.5; O2SAT 98
[2021-01-31] MEDS: Phenobarbital 32.4 MG Tablet 64.8 MG PO ×6 (03:16→23:11)
[2021-01-31 03:18] VITALS: BP 124/69; PULSE 70; RESP 16; TEMP 36.4; O2SAT 96
--- NOTE | 2021-01-31 07:48 | PN.HOSP_ITS ---
Subjective Subjective Patient seen and examined. He has no complaints and feels well. REview of systems is otherwise negative. He has remained hemodynamically stable. Objective Data Objective Data Vital Signs: Vital Signs Temp Pulse Resp BP Pulse Ox 97.6 F L 70 16 124/69 H 96 01/31/21 03:18 01/31/21 03:18 01/31/21 03:18 01/31/21 03:18 01/31/21 03:18 Oxygen Delivery Method Room Air Weight: 151 lb 15.998 oz Body Mass Index (BMI) 20.0 Intake & Output: Intake and Output for Last 24 Hours 01/29/21 01/30/21 01/31/21 23:59 23:59 23:59 Intake Total 1240 / 1640 800 / 800 Balance 1240 / 1640 800 / 800 Lab / Micro Data Result Diagrams: 01/29/21 16:47 01/29/21 16:47 Physical Exam Const alert, oriented x3 and no apparent distress General Appearance: cooperative Exam Limitations: no limitations HEENT normocephalic, head/scalp atraumatic, hearing grossly normal bilaterally and moist oral mucous membranes Head and Scalp: normocephalic Eyes PERRL, EOMs intact bilaterally and conjunctivae normal Neck no lymphadenopathy Resp normal respiratory effort, no retractions, no use of accessory muscles and clear to auscultation bilaterally Cardio regular rate, regular rhythm, S1 normal heart sound, S2 normal heart sound and no murmurs GI normal to inspection, nondistended, normoactive bowel sounds, soft to palpation, non-tender and non-distended Extremity normal to inspection, full ROM and no clubbing, cyanosis or edema Peripheral Pulses: Yes pulses 2+ throughout Skin no rashes or lesions noted Neuro oriented x3 Sensorium / Orientation: awake and alert Psych affect normal Assessment & Plan Assessment/Plan (1) Alcohol withdrawal: (2) Alcohol abuse: PLAN: #Acute alcohol detox * on alcohol withdrawal protocol with phenobarbital * Thiamine, folic acid and multivites * adjunctive medications for supportive treatment as per order set * DVT prophylaxis: low risk. Encourage ambulation. Charges/Coding Visit Charges Inpatient E&M: 50202 Subs Hosp L2
[2021-01-31 08:03] VITALS: BP 126/89; PULSE 63; RESP 18; TEMP 36.5; O2SAT 97
[2021-01-31] MEDS: Folic Acid 1 MG Tablet PO (08:14)
[2021-01-31] MEDS: Thiamine Hydrochloride 100 MG Tablet PO (08:14)
[2021-01-31] MEDS: Multivitamins,Ther W-Minerals Tablet 1 TABLET PO (08:14)
[2021-01-31 13:31] VITALS: BP 132/85; PULSE 67; RESP 18; TEMP 36.5; O2SAT 98
[2021-01-31 23:12] VITALS: BP 121/75; PULSE 55; RESP 16; TEMP 36.2; O2SAT 96
[2021-02-01 03:24] VITALS: BP 111/71; PULSE 67; RESP 18; TEMP 36.5; O2SAT 95
[2021-02-01] MEDS: Phenobarbital 32.4 MG Tablet 64.8 MG PO (03:24)
--- NOTE | 2021-02-01 07:52 | DS.PCM_ITS ---
Providers Date of Admission: 01/29/21 Primary Care Physician: No Primary Care Phys Reason For Visit: ACUTE ALCOHOL DETOX Diagnosis Discharge Diagnosis (1) Alcohol withdrawal: Status: Acute Code(s): F10.239 - Alcohol dependence with withdrawal, unspecified (2) Alcohol abuse: Status: Chronic Code(s): F10.10 - Alcohol abuse, uncomplicated Medications at Discharge Home Medications NK 01/29/21 Hospital Course Operations None Procedures None Summary of Care Provided Minutes Spent on Discharge: 35 Hospital Course: AMANDA KOROMA, is a 55 M with a PMH as outlined who was admitted via the ED on 01/29/2021 for detox from alcohol. Patient drinks 1-2 pints of vodka daily with his last drink being on the day of admission. He denied nausea, tremors, fever, chills, chest pain, palpitations, dizziness. Review of systems is otherwise negative. He doesnt use any other drugs. On admission, vitals showed BP of 141/87, WV of 90 and RR of 16 and he was saturating at 100% on room air. CBC was essentially unremarkable. Chemistry was also unremarkable and urine tox was negative. Serum alcohol level was 280. He was admitted to be managed for acute alcohol detox. He was started on alcohol withdrawal protocol with phenobarbital. Patient tolerated 3-day detox process and remained stable. He was discharged home on 02/01/2021 [facility] Patient was seen and examined prior to discharge. He felt well and had no c omplaints. Review of systems otherwise negative. Labs and vitals reviewed. Home medication reviewed and reconciled. Physical Exam Const alert, oriented x3 and no apparent distress General Appearance: cooperative and comfortable Exam Limitations: no limitations HEENT normocephalic, head/scalp atraumatic, hearing grossly normal bilaterally and moist oral mucous membranes Eyes PERRL, EOMs intact bilaterally and conjunctivae normal Neck no lymphadenopathy Resp normal respiratory effort, no retractions, no use of accessory muscles and clear to auscultation bilaterally Cardio regular rate, regular rhythm, S1 normal heart sound, S2 normal heart sound and no murmurs GI normal to inspection, nondistended, normoactive bowel sounds, soft to palpation, non-tender and non-distended Extremity normal to inspection, full ROM and no clubbing, cyanosis or edema Skin no rashes or lesions noted Neuro oriented x3 Sensorium / Orientation: awake and alert Psych affect normal Weight / BMI Weight Weight: 151 lb 15.998 oz Body Mass Index (BMI) 20.0 ABG / Lab / Microbiology Data Result Diagrams: 01/29/21 16:47 01/29/21 16:47 D/C Instructions Discharge Diet: No restrictions Discharge Activity: Return to Normal Activity Weight Bearing Status: Weight bearing as tolerated Call your doctor if you observe: Fever of 101 or Higher, Shortness of breath, Dizziness and Swelling in the ankles Meaningful Use Info Meaningful Use Diagnoses (Choose all that apply): None applicable Discharge Plan Admission Admit Date/Time: 01/29/21 17:45 Primary Reason for Your Visit: acute alcohol withdrawal Attending Provider: Kavitha Mckinney Primary Care Provider: Care Physician,Jayda Primary Discharge Orders/Prescriptions Prescriptions: No Action NK RF: 0 Referrals / Follow Up: Alvin Jerome MD [STAFF PHYSICIAN] - Within 2 Weeks (call office to set up PCP appointment) Care Physician,No Primary [Primary Care Provider] - Disposition Disposition (needs filled in before D/C Order can be placed): Home, Self Care Charges/Coding Visit Charges Inpatient E&M: 81064 Disch Hosp
[2021-02-01 08:29] VITALS: BP 124/82; PULSE 70; RESP 16; TEMP 36.6; O2SAT 98
[2021-02-01] MEDS: Thiamine Hydrochloride 100 MG Tablet PO (08:35)
[2021-02-01] MEDS: Multivitamins,Ther W-Minerals Tablet 1 TABLET PO (08:35)
[2021-02-01] MEDS: Folic Acid 1 MG Tablet PO (08:35)
== END 2021-02-01 12:07 | disposition home or self-care (01) | DRG 775 ==
LOC: ED 17:40 → MS3 01-30 07:11
PROVIDERS: Admitting Provider Student in an Organized Health Care Education/Training Program; Emergency Provider Emergency Medicine; Visit Provider Student in an Organized Health Care Education/Training Program
DX: F10.239 Alcohol dependence with withdrawal, unspecified (principal); F17.210 Nicotine dependence, cigarettes, uncomplicated; E44.0 Moderate protein-calorie malnutrition; Z68.20 Body mass index [BMI] 20.0-20.9, adult; Y90.8 Blood alcohol level of 240 mg/100 ml or more
CPT/HCPCS: 80053; 80307; 82077; 85025; 97802; 99218; 99282; 99406; A4216; G0378; J3490

== ENCOUNTER 2021-05-08 11:45 | Inpatient (IN) | payer MEDICAID, SELFPAY ==
[2021-05-08 11:46] VITALS: BP 118/78; PULSE 87; RESP 15; TEMP 36.4; O2SAT 98; BMI 19.8
--- NOTE | 2021-05-08 12:07 | EDS_ITS ---
HPI History of Present Illness Chief Complaint: Substance Abuse Narrative Narrative: Patient presents reporting alcohol abuse longstanding he drinks quite a bit of vodka sometimes a bottle a day for an unspecified long period of time he indicates he drinks daily just had a few glasses of vodka prior to come to the ED indicates he has no other past history he has no signs of complication or history of complications from alcohol abuse such as cirrhosis he has been vaccinated from Covid, if he does not drink he gets shakes so he drinks every morning, his last drink was about 2 hours ago, he was detoxed sometime this year he thinks he was sober for about 40 days he could not follow-up with outpatient detox process as those organizations were full he does not use any other drugs PFSH PFS Medical History Alcoholism Anxiety Depression Smoker Home Medications nicotine 21 mg TRANSDERMAL DAILY 30 Days #30 ea 02/01/21 [Rx Last Taken Unknown] Allergy/AdvReac Type Severity Reaction Status Date / Time No Known Allergies Allergy Verified 05/08/21 11:48 Social History Smoking Status: Current every day smoker tobacco type: cigarettes ROS ROS ED Constitutional Constitutional ED: Reports subjective, sweats and other; Denies chills, fever(s) or weight loss Eyes Eyes: Denies blurry vision or change in vision ENT ENT ED: Denies ear pain Cardiovascular Cardiovascular: Denies chest pain or palpitations Respiratory/Chest Respiratory/Chest: Denies dyspnea Gastrointestinal Gastrointestinal: Denies abdominal pain, nausea or vomiting Genitourinary Genitourinary ED: Denies dysuria or hematuria Musculoskeletal Musculoskeletal: Denies arthralgias or myalgias Integumentary Reports rash; Denies abscess Neurologic Neurologic: Denies weakness Psychiatric Psychiatric: Denies anxiety or depression Endocrine Endocrinology: Denies polydipsia or polyuria Allergic/Immunologic Allergic/Immunologic ED: Denies urticaria EXAM Physical Exam Const Vital Signs: 05/08/21 11:46 Temperature 97.6 F L Temperature Source Temporal Pulse Rate 87 Respiratory Rate 15 Blood Pressure 118/78 Blood Pressure Mean 91 Pulse Ox 98 Oxygen Delivery Method Room Air Positive well developed General Appearance ED: well developed HEENT Reports normocephalic Negative for trauma Eyes EOMs intact bilaterally Neck supple Chest Wall inspection of chest normal Resp normal respiratory effort Cardio regular rate GI non-tender and non-distended Back/Spine Back/Spine Narrative: unremarkable Extremity normal to inspection Neuro oriented x3 and CN's II-XII intact bilaterally Sensorium / Orientation: alert Psych mental status grossly normal Skin no rashes or lesions noted MDM MDM MDM Narrative Medical decision making narrative: The patient is awake and alert his vital signs are unremarkable he currently is in no distress he did just consume alcohol to calm himself down and stop the shakes given his prior history and his age and his heavy alcohol consumption I spoke with the hospitalist will discuss admission process screening labs will be obtained The patient's ED screening labs are generally unremarkable see those reports, He remains hemodynamically stable, he had extensive shaking prior to coming to the ED he drank some vodka to stop the shaking given the above hospitalist agrees with admission for further management Final impression alcohol abuse requiring inpatient detox Lab Data Labs: Laboratory Results - last 24 hr 05/08/21 05/08/21 05/08/21 11:50 11:50 11:50 WBC 9.0 RBC 3.98 L Hgb 13.8 Hct 40.1 MCV 100.8 H MCH 34.7 H MCHC 34.4 RDW Std Deviation 53.3 H RDW Coeff of Shad 14.4 Plt Count 201 MPV 10.2 Immature Gran % (Auto) 0.400 Neut % (Auto) 74.6 H Lymph % (Auto) 14.3 L [place] % (Auto) 8.8 Eos % (Auto) 1.5 Baso % (Auto) 0.4 Absolute Neuts (auto) 6.7 Absolute Lymphs (auto) 1.28 Nucleated RBC % 0 Sodium 141 Potassium 3.3 L Chloride 107 Carbon Dioxide 26.0 Anion Gap 8 BUN 7 Creatinine 0.72 Estim Creat Clear Calc 108.94 Est GFR (MDRD) Af Amer 144 Est GFR (MDRD) Non-Af 119 BUN/Creatinine Ratio 9.7 L Glucose 125 H Calcium 8.7 Total Bilirubin 0.40 AST 73 H ALT 71 H Alkaline Phosphatase 120 H Total Protein 7.9 Albumin 3.6 Globulin 4.3 H Albumin/Globulin Ratio 0.8 L Urine Opiates Screen Urine Methadone Screen Ur Barbiturates Screen Ur Phencyclidine Scrn Ur Amphetamines Screen U Methamphetamin-MDMA U Benzodiazepines Scrn Urine Cocaine Screen U Cannabinoids Screen Ur Drug Screen Comment Ethyl Alcohol 274.0 05/08/21 12:34 WBC RBC Hgb Hct MCV MCH MCHC RDW Std Deviation RDW Coeff of Shad Plt Count MPV Immature Gran % (Auto) Neut % (Auto) Lymph % (Auto) [place] % (Auto) Eos % (Auto) Baso % (Auto) Absolute Neuts (auto) Absolute Lymphs (auto) Nucleated RBC % Sodium Potassium Chloride Carbon Dioxide Anion Gap BUN Creatinine Estim Creat Clear Calc Est GFR (MDRD) Af Amer Est GFR (MDRD) Non-Af BUN/Creatinine Ratio Glucose Calcium Total Bilirubin AST ALT Alkaline Phosphatase Total Protein Albumin Globulin Albumin/Globulin Ratio Urine Opiates Screen NEGATIVE Urine Methadone Screen NEGATIVE Ur Barbiturates Screen NEGATIVE Ur Phencyclidine Scrn NEGATIVE Ur Amphetamines Screen NEGATIVE U Methamphetamin-MDMA NEGATIVE U Benzodiazepines Scrn NEGATIVE Urine Cocaine Screen NEGATIVE U Cannabinoids Screen NEGATIVE Ur Drug Screen Comment Ethyl Alcohol Discharge Plan Triage Chief Complaint: Substance Abuse ED Provider: Burak Carlos Dx/Rx/DC Orders Prescriptions: No Action nicotine 21 mg/24 hr Patch 24 Hour 21 mg transdermal DAILY 30 Days Qty: 30 RF: 0 Primary Care Provider: Juju Ritter NP
[2021-05-08 12:21] LABS: Absolute Lymphocyte Count 1.28 X10^3/uL (0.83-4.51); Absolute Neutrophil Count 6.7 X10^3/uL (2.0-7.7); Basophil# 0.04 X10^3/uL; Basophil% 0.4 % (0-1); Eosinophil# 0.13 X10^3/uL; Eosinophils% 1.5 % (0-5); Hematocrit 40.1 % (40-54); Hemoglobin 13.8 g/dL (13.0-16.5); Lymphocyte # 1.28 X10^3/ul (0.83-4.51); Lymphocyte % 14.3 % (19-41); Mean Corp Hgb Conc 34.4 g/dL (32-36); Mean Corpuscular Hgb 34.7 pg (27.0-32.0); Mean Corpuscular Volume 100.8 fL (80-94); Mean Platelet Vol. 10.2 fl (6.2-12.0); Monocyte# 0.79 X10^3/uL; Monocyte% 8.8 % (0-10); NRBC Flagged by Analyzer 0 % (0-5); Neutrophil # 6.68 X10^3/uL (2.7-7.7); Neutrophil % 74.6 % (47-70); Platelet Count 201 K/mm3 (150-450); RBC Distribution Width CV 14.4 % (11.6-14.6); RBC Distribution Width SD 53.3 fl (35.1-43.9); Red Blood Count 3.98 M/mm3 (4.6-6.2)
[2021-05-08 12:33] LABS: ALB/GLOB Ratio 0.8 RATIO (0.9-2.4); AST(SGOT) 73 U/L (15-37); Alanine Aminotransfer ALT/SGPT 71 U/L (16-61); Albumin, Serum 3.6 g/dL (3.2-5.0); Alkaline Phosphatase 120 U/L (45-117); Anion Gap 8 (5-15); BUN 7 mg/dL (7-18); BUN/Creat Ratio 9.7 RATIO (10-20); Calcium,Total 8.7 mg/dL (8.5-10.1); Chloride 107 mmol/L (98-107); Creatinine, Serum 0.72 mg/dL (0.70-1.30); EST Glomerular Filtration Rate 119 mL/min (>60); Est Glom Filt Rate - Afr Amer 144 mL/min (>60); Estimated Creatinine Clearance 108.94 ml/min; Globulin 4.3 g/dL (2.2-4.2); Glucose 125 mg/dL (74-106); Potassium 3.3 mmol/L (3.5-5.1); Protein, Total 7.9 g/dL (6.4-8.2); Sodium Level 141 mmol/L (136-145)
[2021-05-08 12:53] LABS: Amphetamine Urine VISTA NEGATIVE (<1000 ng/mL); Barbiturate Urine VISTA NEGATIVE (< 200 ng/mL); Benzodiazepine Urine VISTA NEGATIVE (< 200 ng/mL); Cocaine Urine VISTA NEGATIVE (< 300 ng/mL); Ecstacy Urine VISTA NEGATIVE (< 500 ng/mL); Methadone Urine VISTA NEGATIVE (< 300 ng/mL); PCP Urine VISTA NEGATIVE (< 25 ng/mL); THC Urine VISTA NEGATIVE (< 50 ng/mL); Vista UDS pH Range 5
--- NOTE | 2021-05-08 13:08 | NURSING ---
MED SURG KOCHRISTINAONIS ALCOHOL ABUSE REQUIRING DETOX
[2021-05-08 13:24] VITALS: BP 124/78; PULSE 79; RESP 16; TEMP 36.2; O2SAT 98
[2021-05-08 14:37] VITALS: BP 114/73; PULSE 70; RESP 18; TEMP 36.4; O2SAT 98
[2021-05-08 14:38] VITALS: BMI 19.4
[2021-05-08] MEDS: Phenobarbital 32.4 MG Tablet 64.8 MG PO ×3 (14:57→21:39)
--- NOTE | 2021-05-08 17:28 | PCM.HP.STD ---
HPI - General General Date of Admission: 05/08/21 HPI Narrative AMANDA KOROMA, is a 55 M who presents alcohol withdrawal. He did drink just prior to coming to the hospital. He states that he had been sober for about a month and then he had 2 family members which seems to be his trigger for drinking he states. He does want to quit drinking and would like to follow-up as an outpatient to get clean if possible. Denies any Covid symptoms. Currently feels stable secondary to having had a drink 2 hours prior to presenting to the hospital. PFSH Medical History Alcoholism Anxiety Depression Smoker Allergy/AdvReac Type Severity Reaction Status Date / Time No Known Allergies Allergy Verified 05/08/21 11:48 Family History (Updated 05/08/21 @ 17:[address] Cholo Cohen MD) Other Cancer Surgical History no surgical history no surgical history Social History Smoking Status: Current every day smoker tobacco type: cigarettes ROS Constitutional Constitutional: Denies chills, fatigue, fever(s) or malaise Eyes Eyes: Denies blurry vision ENT HEENT: Denies headache(s) or nasal discharge Cardiovascular Cardiovascular: Denies chest pain, dyspnea on exertion or syncope Respiratory/Chest Respiratory/Chest: Denies cough, shortness of breath at rest or shortness of breath with exertion Gastrointestinal Gastrointestinal: Denies constipation, diarrhea, nausea or vomiting Genitourinary Genitourinary: Denies dysuria Neurologic Neurologic: Denies focal weakness, numbness or tremor(s) Psychiatric Psychiatric: Denies anxiety or depression Vital Signs Vital Signs Vital Signs: 05/08/21 11:46 05/08/21 13:24 05/08/21 14:37 Temperature 97.6 F L 97.2 F L 97.6 F L Temperature Source Temporal Oral Temporal Pulse Rate 87 79 70 Respiratory Rate 15 16 18 Blood Pressure 118/78 124/78 H 114/73 Blood Pressure Mean 91 93 86 Blood Pressure Source Monitor Blood Pressure Position Semi-Fowlers Blood Pressure Location Right Arm Pulse Ox 98 98 98 Oxygen Delivery Method Room Air Room Air Room Air Weight Weight: 147 lb 7.828 oz Body Mass Index (BMI) 19.4 Physical Exam Const alert, oriented x3 and no apparent distress General Appearance: cooperative HEENT normocephalic and moist oral mucous membranes Eyes PERRL, EOMs intact bilaterally and conjunctivae normal Neck supple and no JVD Resp normal respiratory effort, no retractions, no use of accessory muscles and clear to auscultation bilaterally Auscultation: Negative for crackles, rales, rhonchi or wheezes Cardio regular rate, regular rhythm, S1 normal heart sound, S2 normal heart sound and no murmurs GI soft to palpation, non-tender and non-distended; Negative for hepatosplenomegaly Extremity no clubbing, cyanosis or edema Skin no rashes or lesions noted Neuro no focal motor deficits and no sensory deficits noted Psych affect normal Appearance: appropriate Results Lab / Micro Data Result Diagrams: 05/08/21 11:50 05/08/21 11:50 Labs: Laboratory Results - last 24 hr 05/08/21 11:50: WBC 9.0, RBC 3.98 L, Hgb 13.8, Hct 40.1, MCV 100.8 H, MCH 34.7 H, MCHC 34.4, RDW Std Deviation 53.3 H, RDW Coeff of Shad 14.4, Plt Count 201, MPV 10.2, Immature Gran % (Auto) 0.400, Neut % (Auto) 74.6 H, Lymph % (Auto) 14.3 L, [place] % (Auto) 8.8, Eos % (Auto) 1.5, Baso % (Auto) 0.4, Absolute Neuts (auto) 6.7, Absolute Lymphs (auto) 1.28, Nucleated RBC % 0 05/08/21 11:50: Sodium 141, Potassium 3.3 L, Chloride 107, Carbon Dioxide 26.0, Anion Gap 8, BUN 7, Creatinine 0.72, Estim Creat Clear Calc 108.94, Est GFR (MDRD) Af Amer 144, Est GFR (MDRD) Non-Af 119, BUN/Creatinine Ratio 9.7 L, Glucose 125 H, Calcium 8.7, Total Bilirubin 0.40, AST 73 H, ALT 71 H, Alkaline Phosphatase 120 H, Total Protein 7.9, Albumin 3.6, Globulin 4.3 H, Albumin/Globulin Ratio 0.8 L 05/08/21 11:50: Ethyl Alcohol 274.0 05/08/21 12:34: Urine Opiates Screen NEGATIVE, Urine Methadone Screen NEGATIVE, Ur Barbiturates Screen NEGATIVE, Ur Phencyclidine Scrn NEGATIVE, Ur Amphetamines Screen NEGATIVE, U Methamphetamin-MDMA NEGATIVE, U Benzodiazepines Scrn NEGATIVE, Urine Cocaine Screen NEGATIVE, U Cannabinoids Screen NEGATIVE, Ur Drug Screen Comment Assessment & Plan Assessment/Plan (1) Alcohol withdrawal: PLAN: 1. Acute alcohol withdrawal/alcohol abuse -He recently completed withdrawal earlier this year and was sober for 40 days and had to family members which triggered his recurrence and drinking -We will continue with alcohol withdrawal protocol -He does have a sponsor who he notified that he was in here for and has stated that he can make himself available if needed on discharge -Will follow up with 180 DVT: Ambulation Charges/Coding Visit Charges Inpatient E&M: 88359 Init Hosp L2
--- NOTE | 2021-05-08 17:30 | NURSING ---
Pandemic Documentation Initiated Emergency Documentation Start: 05/08/21 1500 Freq: ONCE Status: Active Protocol: Created 05/08/21 17:30 (Rec: 05/08/21 17:30 [id number])
[2021-05-08 18:21] VITALS: BP 126/59; PULSE 69; RESP 18; TEMP 36.8; O2SAT 96
[2021-05-08 21:32] VITALS: BP 126/75; PULSE 62; RESP 17; TEMP 36.9; O2SAT 97
[2021-05-09 02:44] VITALS: BP 123/74; PULSE 57; RESP 15; TEMP 36.6; O2SAT 99
[2021-05-09] MEDS: Phenobarbital 32.4 MG Tablet 64.8 MG PO ×6 (02:47→22:27)
--- NOTE | 2021-05-09 10:41 | PN.HOSP_ITS ---
Subjective Subjective Doing well, no issues overnight. Objective Data Objective Data Vital Signs: Vital Signs Temp Pulse Resp BP Pulse Ox 97.9 F 57 L 15 123/74 H 99 05/09/21 02:44 05/09/21 02:44 05/09/21 02:44 05/09/21 02:44 05/09/21 02:44 Oxygen Delivery Method Room Air Weight: 147 lb 7.828 oz Body Mass Index (BMI) 19.4 Lab / Micro Data Result Diagrams: 05/08/21 11:50 05/08/21 11:50 Labs: Laboratory Results - last 24 hr 05/08/21 11:50: WBC 9.0, RBC 3.98 L, Hgb 13.8, Hct 40.1, MCV 100.8 H, MCH 34.7 H , MCHC 34.4, RDW Std Deviation 53.3 H, RDW Coeff of Shad 14.4, Plt Count 201, MPV 10.2, Immature Gran % (Auto) 0.400, Neut % (Auto) 74.6 H, Lymph % (Auto) 14.3 L, [place] % (Auto) 8.8, Eos % (Auto) 1.5, Baso % (Auto) 0.4, Absolute Neuts (auto) 6.7, Absolute Lymphs (auto) 1.28, Nucleated RBC % 0 05/08/21 11:50: Sodium 141, Potassium 3.3 L, Chloride 107, Carbon Dioxide 26.0, Anion Gap 8, BUN 7, Creatinine 0.72, Estim Creat Clear Calc 108.94, Est GFR (MDRD) Af Amer 144, Est GFR (MDRD) Non-Af 119, BUN/Creatinine Ratio 9.7 L, Glucose 125 H, Calcium 8.7, Total Bilirubin 0.40, AST 73 H, ALT 71 H, Alkaline Phosphatase 120 H, Total Protein 7.9, Albumin 3.6, Globulin 4.3 H, Albumin/Globulin Ratio 0.8 L 05/08/21 11:50: Ethyl Alcohol 274.0 05/08/21 12:34: Urine Opiates Screen NEGATIVE, Urine Methadone Screen NEGATIVE, Ur Barbiturates Screen NEGATIVE, Ur Phencyclidine Scrn NEGATIVE, Ur Amphetamines Screen NEGATIVE, U Methamphetamin-MDMA NEGATIVE, U Benzodiazepines Scrn NEGATIVE, Urine Cocaine Screen NEGATIVE, U Cannabinoids Screen NEGATIVE, Ur Drug Screen Comment Physical Exam Const alert, oriented x3 and no apparent distress General Appearance: cooperative HEENT normocephalic and moist oral mucous membranes Eyes PERRL, EOMs intact bilaterally and conjunctivae normal Neck supple and no JVD Resp normal respiratory effort, no retractions, no use of accessory muscles and clear to auscultation bilaterally Auscultation: Negative for crackles, rales, rhonchi or wheezes Cardio regular rate, regular rhythm, S1 normal heart sound, S2 normal heart sound and no murmurs GI soft to palpation, non-tender and non-distended; Negative for hepatosplenomegaly Extremity no clubbing, cyanosis or edema Skin no rashes or lesions noted Neuro no focal motor deficits and no sensory deficits noted Psych affect normal Appearance: appropriate Assessment & Plan Assessment/Plan (1) Alcohol withdrawal: PLAN: 1. Acute alcohol withdrawal/alcohol abuse -He recently completed withdrawal earlier this year and was sober for 40 days and had to family members which triggered his recurrence and drinking -We will continue with alcohol withdrawal protocol -He does have a sponsor who he notified that he was in here for and has stated that he can make himself available if needed on discharge -Will follow up with [facility] an outpatient on discharge. DVT: Ambulation Charges/Coding Visit Charges Inpatient E&M: 28011 Subs Hosp L2
[2021-05-09 10:59] VITALS: BP 136/82; PULSE 56; RESP 16; TEMP 36.6; O2SAT 99
[2021-05-09] MEDS: Folic Acid 1 MG Tablet PO (11:10)
[2021-05-09] MEDS: Thiamine Hydrochloride 100 MG Tablet PO (11:11)
--- NOTE | 2021-05-09 11:34 | ADDICTION ---
This expert medical writer met with PT to conduct ASAM, MSE, AUDIT assessments and to plan for d/c. PT A+Ox4 and participated actively. All assessments completed, faxed to [facility] and placed in PT's chart. PT plans to f/u with individual counselor at [facility] for follow-up counseling services. PT did not indicate a need for transportation post d/c from [facility].
[2021-05-09 15:06] VITALS: BP 169/73; PULSE 59; RESP 18; TEMP 36.8; O2SAT 98
[2021-05-09 22:24] VITALS: BP 127/85; PULSE 55; RESP 15; TEMP 36.8; O2SAT 99
[2021-05-10] MEDS: Phenobarbital 32.4 MG Tablet 64.8 MG PO ×2 (02:52→05:42)
[2021-05-10 02:54] VITALS: BP 119/74; PULSE 57; RESP 16; TEMP 36.5; O2SAT 100
[2021-05-10] MEDS: Folic Acid 1 MG Tablet PO (08:08)
[2021-05-10] MEDS: Thiamine Hydrochloride 100 MG Tablet PO (08:08)
--- NOTE | 2021-05-10 09:10 | PCM.DC ---
Discharge Instructions Diet Discharge Diet: No restrictions Activity Discharge Activity: Return to Normal Activity Dressing / Incision Call your doctor if you observe: Fever of 101 or Higher, Shortness of breath, Dizziness, Fainting spells, Swelling in the ankles, Chest pain and Increased palpitations (irregular heartbeat) Follow Up Care Test Results: Test results from this visit will be discussed in further detail at your follow-up appointment, if applicable. Discharge Plan Admission Admit Date/Time: 05/08/21 14:25 Attending Provider: Cholo Cohen Primary Care Provider: Juju Ritter NP Instructions Additional Instructions / Restrictions: Follow-up with 180 on Wednesday and stay in close communication with your sponsors Discharge Orders/Prescriptions Referrals / Follow Up: Juju Ritter NP, [employer] [Primary Care Provider] - Within 1 Week Disposition Disposition (needs filled in before D/C Order can be placed): Home, Self Care
--- NOTE | 2021-05-10 09:11 | PCM.DC.SUM ---
Providers Date of Admission: 05/08/21 Primary Care Physician: Juju Ritter, [employer] Reason For Visit: ETOH Diagnosis Discharge Diagnosis (1) Alcohol withdrawal: Status: Acute Code(s): F10.239 - Alcohol dependence with withdrawal, unspecified Hospital Course Operations None Procedures None Summary of Care Provided Minutes Spent on Discharge: 35 Hospital Course: Per HPI: AMANDA KOROMA, is a 55 M who presents alcohol withdrawal. He did drink just prior to coming to the hospital. He states that he had been sober for about a month and then he had 2 family members which seems to be his trigger for drinking he states. He does want to quit drinking and would like to follow-up as an outpatient to get clean if possible. Denies any Covid symptoms. Currently feels stable secondary to having had a drink 2 hours prior to presenting to the hospital. Hospital Course: 1. Acute alcohol [id number] male presented with alcohol withdrawal. He started drinking after tympanic membrane . He does have a sponsor from previous alcohol relapses and he will follow up with them this week. He also has an appointment with 180 on Wednesday. I did discuss with him that today's only day 2 of his withdrawal but he felt that he was much better and has not had any significant symptoms. He would like to go home today. Given that he has follow-up and he states that he will not drink I will be in touch with his sponsors I will discharge him today with follow-up. Physical Exam Const alert, oriented x3 and no apparent distress General Appearance: cooperative HEENT normocephalic and moist oral mucous membranes Eyes PERRL, EOMs intact bilaterally and conjunctivae normal Neck supple and no JVD Resp normal respiratory effort, no retractions, no use of accessory muscles and clear to auscultation bilaterally Auscultation: Negative for crackles, rales, rhonchi or wheezes Cardio regular rate, regular rhythm, S1 normal heart sound, S2 normal heart sound and no murmurs GI soft to palpation, non-tender and non-distended; Negative for hepatosplenomegaly Extremity no clubbing, cyanosis or edema Skin no rashes or lesions noted Neuro no focal motor deficits and no sensory deficits noted Psych affect normal Appearance: appropriate Weight / BMI Weight Weight: 147 lb 7.828 oz Body Mass Index (BMI) 19.4 ABG / Lab / Microbiology Data Result Diagrams: 05/08/21 11:50 05/08/21 11:50 D/C Instructions Discharge Diet: No restrictions Call your doctor if you observe: Fever of 101 or Higher, Shortness of breath, Dizziness, Fainting spells, Swelling in the ankles, Chest pain and Increased palpitations (irregular heartbeat) Meaningful Use Info Meaningful Use Diagnoses (Choose all that apply): None applicable Discharge Plan Admission Admit Date/Time: 05/08/21 14:25 Attending Provider: Cholo Cohen Primary Care Provider: Juju Ritter NP Instructions Additional Instructions / Restrictions: Follow-up with 180 on Wednesday and stay in close communication with your sponsors Discharge Orders/Prescriptions Referrals / Follow Up: Juju Ritter NP, [employer] [Primary Care Provider] - Within 1 Week Disposition Disposition (needs filled in before D/C Order can be placed): Home, Self Care Charges/Coding Visit Charges Inpatient E&M: 20847 Disch Hosp
[2021-05-10 09:40] VITALS: BP 119/75; PULSE 73; RESP 16; TEMP 36.8; O2SAT 100
== END 2021-05-10 09:45 | disposition home or self-care (01) | DRG 775 ==
LOC: ED 12:27 → MS2 14:33
PROVIDERS: Admitting Provider Family Medicine; Emergency Provider Emergency Medicine; PCP Nurse Practitioner Primary Care; Visit Provider Family Medicine
DX: F10.239 Alcohol dependence with withdrawal, unspecified (principal); F32.A Depression, unspecified; F41.9 Anxiety disorder, unspecified; Z63.4 Disappearance and death of family member; F17.210 Nicotine dependence, cigarettes, uncomplicated; Z23 Encounter for immunization
CPT/HCPCS: 80053; 80307; 82077; 85025; 99284; 99406; 90686; A4216

== ENCOUNTER 2021-06-06 12:40 | Observation (INO) | payer MEDICAID, SELFPAY ==
[2021-06-06] VITALS (7 sets, daily range): BP systolic 120–144; BP diastolic 70–92; PULSE 63–80; RESP 14–18; TEMP 36–37; O2SAT 95–99; BMI 19.8; BMI 19.5
--- NOTE | 2021-06-06 13:10 | CM.ED ---
KENYA Note Referral Source: Case Find Referral Reason: RAMP KENYA met with patient. He reports he is here for alcohol and reports he drank a little over a hour ago. Patient said that he drinks at least one 1/5 vodka but sometimes 2. Patient said he lives with a stacy in [place] and feels alone. Patient said that his sisters call and check on him but he feels he is depressed. He denied SI/HI and said the sun is always coming up. Patient is linked with [facility] and works with Shruti. SW discussed that patient was recently here in the [facility] program and has relapsed and what he feels the trigger is. Patient said that he started drinking 2 hours after I left here. Patient said that the trigger is 5 family members have in the last 1 1/2 years... I know that is no excuse. SW called Lev at [facility] and updated her. Marilia GARNETT
[2021-06-06 13:22] LABS: Absolute Lymphocyte Count 1.05 X10^3/uL (0.83-4.51); Absolute Neutrophil Count 3.6 X10^3/uL (2.0-7.7); Basophil# 0.02 X10^3/uL; Basophil% 0.4 % (0-1); Eosinophil# 0.17 X10^3/uL; Eosinophils% 3.2 % (0-5); Hematocrit 40.9 % (40-54); Hemoglobin 14.1 g/dL (13.0-16.5); Lymphocyte # 1.05 X10^3/ul (0.83-4.51); Lymphocyte % 19.9 % (19-41); Mean Corp Hgb Conc 34.5 g/dL (32-36); Mean Corpuscular Hgb 34.3 pg (27.0-32.0); Mean Corpuscular Volume 99.5 fL (80-94); Mean Platelet Vol. 10.2 fl (6.2-12.0); Monocyte# 0.44 X10^3/uL; Monocyte% 8.3 % (0-10); NRBC Flagged by Analyzer 0 % (0-5); Neutrophil # 3.57 X10^3/uL (2.7-7.7); Neutrophil % 67.8 % (47-70); Platelet Count 149 K/mm3 (150-450); RBC Distribution Width CV 13.6 % (11.6-14.6); RBC Distribution Width SD 50.2 fl (35.1-43.9); Red Blood Count 4.11 M/mm3 (4.6-6.2); White Blood Count 5.3 K/mm3 (4.4-11.0)
--- NOTE | 2021-06-06 13:23 | PCM.HP.STD ---
HPI - General General Date of Admission: 06/06/21 Date of Service: 06/06/21 Chief Complaint: Acute alcohol withdrawal HPI Narrative AMANDA KOROMA, is a 55 M who presented to the emergency department [facility] on 06/06/2021 with request for alcohol detox. The patient reports that he drinks approximately 1/5 of vodka daily. His last drink was approximately 1 to 2 hours prior to presentation. He has had no prolonged periods of sobriety. He states the longest he has been sober in the last several years is approximately 2 months. He had an admission here in mid April and he states he went home and within 24 hours of being home started drinking again. He states he goes home gets depressed and starts drinking. He is open to inpatient treatment programming and has been in contact with [facility]. He states that the plan at this time is for inpatient treatment upon discharge. He has no pertinent past medical history other than alcoholism and tobacco abuse. He states he smokes approximately half a pack a day. His vital signs are all stable. His CBC is normal except for a mild thrombocytopenia. His platelet count is 149,000. His BMP was pending upon discharge. His tox screen was pending as well although he denies any other drug use. He will be admitted to the medical floor and started on a phenobarbital taper as well as supportive medications. Addiction medicine will likely see him tomorrow to put together a plan for discharge. [facility] Medical History Alcoholism Anxiety Depression Smoker no medical history Home Medications NK 06/06/21 [History Last Taken Unknown] Allergy/AdvReac Type Severity Reaction Status Date / Time No Known Allergies Allergy Verified 06/06/21 12:51 Family History Other Cancer no surgical history Social History (Updated 06/06/21 @ 13:[address] Zaina Lema DO) Smoking Status: Current every day smoker tobacco type: cigarettes alcohol intake: current alcohol intake frequency: 3 or more drinks per day Alcohol type: hard liquor substance use type: does not use ROS Constitutional Constitutional: Denies anorexia, change in weight, chills, fatigue, fever(s), malaise, night sweats, weakness or other Eyes Eyes: Denies blurry vision, change in eye color, change in vision, discharge from eye(s), double vision, erythema, eye pain, loss of vision or other ENT HEENT: Denies abnormal hearing, dysphagia, ear pain, epistaxis, headache(s), hearing loss, nasal congestion, nasal discharge, post nasal drip, sinus pressure, sore throat or other Cardiovascular Cardiovascular: Denies chest pain, claudication, dyspnea on exertion, edema, lightheadedness, orthopnea, palpitations, paroxysmal nocturnal dyspnea, rapid heart rate, syncope or other Respiratory/Chest Respiratory/Chest: Denies cough, dyspnea, excessive phlegm production, hemoptysis, productive cough, shortness of breath at rest, shortness of breath with exertion, wheezing or other Gastrointestinal Gastrointestinal: Denies abdominal pain, coffee ground emesis, constipation, diarrhea, dyspepsia, hematemesis, hematochezia, loose stools, melena, nausea, vomiting or other Genitourinary Genitourinary: Denies burning urination, difficulty urinating, dysuria, hematuria, nocturia, urinary frequency, urinary hesitancy, urinary incontinence, urinary urgency or other Musculoskeletal Musculoskeletal: Denies arthralgias, back pain, joint pain, joint stiffness, joint swelling, myalgias, neck pain or other Neurologic Neurologic: Denies abnormal gait, abnormal speech, confusion, disequilibrium, dizziness, focal weakness, headache(s), numbness, paresthesias, seizure-like activity, seizures, syncope, tingling, tremor(s) or other Psychiatric Psychiatric: Denies anxiety, depression, homicidal ideation, suicidal ideation or other Endocrine Endocrinology: Denies change in body appearance, cold intolerance, excessive sweating, heat intolerance, polydipsia, polyuria or other Hematologic/Lymphatic Hematologic/Lymphatic: Denies anemia, easy bleeding, easy bruising, lymphadenopathy or other Allergic/Immunologic Allergic/Immunologic: Denies rhinitis, hives, eczemia, asthma or other Vital Signs Vital Signs Vital Signs: 06/06/21 12:41 06/06/21 13:05 Temperature 96.8 F L 98.4 F Temperature Source Temporal Temporal Pulse Rate 80 75 Respiratory Rate 14 18 Blood Pressure 144/80 H 133/92 H Blood Pressure Mean 101 105 Blood Pressure Source Monitor Blood Pressure Position Supine Blood Pressure Location Right Arm Pulse Ox 99 98 Oxygen Delivery Method Room Air Room Air Weight Weight: 68.039 kg Body Mass Index (BMI) 19.8 Physical Exam Const alert, oriented x3 and no apparent distress Constitutional Narrative: Very pleasant upper middle-aged white male who appears older than stated age, sitting up in bed, nontoxic, nursing at bedside General Appearance: cooperative HEENT normocephalic, head/scalp atraumatic, hearing grossly normal bilaterally and moist oral mucous membranes Resp normal respiratory effort, no retractions, no use of accessory muscles and clear to auscultation bilaterally Auscultation: Negative for crackles, rales, rhonchi or wheezes Cardio regular rate, regular rhythm, S1 normal heart sound, S2 normal heart sound, no murmurs, no rub, no gallops, no clicks and no JVD GI normal to inspection, nondistended, normoactive bowel sounds, soft to palpation, non-tender and non-distended Extremity normal to inspection and no clubbing, cyanosis or edema Peripheral Pulses: Yes pulses 2+ throughout Neuro oriented x3, CN's II-XII intact bilaterally and moves all extremities Sensorium / Orientation: awake and alert Speech: speech normal Motor Exam: strength 5/5 throughout Psych affect normal Results Lab / Micro Data Result Diagrams: 06/06/21 13:15 06/06/21 13:15 Labs: Laboratory Results - last 24 hr 06/06/21 13:15: WBC 5.3, RBC 4.11 L, Hgb 14.1, Hct 40.9, MCV 99.5 H, MCH 34.3 H, MCHC 34.5, RDW Std Deviation 50.2 H, RDW Coeff of Shad 13.6, Plt Count 149 L, MPV 10.2, Immature Gran % (Auto) 0.400, Neut % (Auto) 67.8, Lymph % (Auto) 19.9, [place] % (Auto) 8.3, Eos % (Auto) 3.2, Baso % (Auto) 0.4, Absolute Neuts (auto) 3.6, Absolute Lymphs (auto) 1.05, Nucleated RBC % 0 Assessment & Plan Assessment/Plan (1) Alcohol withdrawal: (2) Alcohol abuse: (3) Thrombocytopenia: PLAN: Acute alcohol withdrawal -Patient desires detox and inpatient treatment program upon discharge -Start phenobarbital taper -Thiamine and folate -Supportive medications for symptoms -Consultation to [facility] for assistance with discharge planning Thrombocytopenia -Likely related to his alcoholism -Mild -Repeat CBC in a.m. Tobacco abuse -Recommend cessation -As needed albuterol -14 mcg nicotine patch DVT prophylaxis -Patient is low risk -Early ambulation CODE STATUS -Full code Charges/Coding Visit Charges Inpatient E&M: 17033 Init Hosp L2
[2021-06-06 13:39] LABS: ALB/GLOB Ratio 0.7 RATIO (0.9-2.4); AST(SGOT) 102 U/L (15-37); Alanine Aminotransfer ALT/SGPT 61 U/L (16-61); Albumin, Serum 3.3 g/dL (3.2-5.0); Alkaline Phosphatase 153 U/L (45-117); Anion Gap 7 (5-15); BUN 7 mg/dL (7-18); BUN/Creat Ratio 11.1 RATIO (10-20); Calcium,Total 8.4 mg/dL (8.5-10.1); Chloride 104 mmol/L (98-107); Creatinine, Serum 0.63 mg/dL (0.70-1.30); EST Glomerular Filtration Rate 139 mL/min (>60); Est Glom Filt Rate - Afr Amer 169 mL/min (>60); Globulin 4.8 g/dL (2.2-4.2); Glucose 83 mg/dL (74-106); Potassium 3.9 mmol/L (3.5-5.1); Protein, Total 8.1 g/dL (6.4-8.2); Sodium Level 140 mmol/L (136-145)
[2021-06-06 14:01] LABS: Amphetamine Urine VISTA NEGATIVE (<1000 ng/mL); Barbiturate Urine VISTA POSITIVE (< 200 ng/mL); Benzodiazepine Urine VISTA NEGATIVE (< 200 ng/mL); Cocaine Urine VISTA NEGATIVE (< 300 ng/mL); Ecstacy Urine VISTA NEGATIVE (< 500 ng/mL); Methadone Urine VISTA NEGATIVE (< 300 ng/mL); PCP Urine VISTA NEGATIVE (< 25 ng/mL); THC Urine VISTA NEGATIVE (< 50 ng/mL); Vista UDS pH Range 5
--- NOTE | 2021-06-06 14:12 | EX.ED.DYSGE1 ---
HPI History of Present Illness Chief Complaint: Substance Abuse Informant: patient Narrative Narrative: 55-year-old male presenting requesting alcohol detox. He states he contacted [facility] and was advised to come to the ED for admission for alcohol detox. Patient states he drinks approximately 1/5 of vodka per day. His last drink was 1 hour ago. He states his last attempt at detox was several months ago. He denies drug use. Denies current complaints. Prior similar symptoms: Yes Recent Illness/Hospitalization: No PFSH PFSH Medical History Alcoholism Anxiety Depression Smoker Medical History no medical history Home Medications NK 06/06/21 [History Last Taken Unknown] Allergy/AdvReac Type Severity Reaction Status Date / Time No Known Allergies Allergy Verified 06/06/21 12:51 Family History Other Cancer Surgical History no surgical history Social History (Updated 06/06/21 @ 13:[address] Zaina Lema DO) Smoking Status: Current every day smoker tobacco type: cigarettes alcohol intake: current alcohol intake frequency: 3 or more drinks per day Alcohol type: hard liquor substance use type: does not use ROS ROS ED Constitutional Constitutional ED: Denies fever(s) Eyes Eyes: Denies change in vision ENT ENT ED: Denies rhinorrhea or sore throat Cardiovascular Cardiovascular: Denies chest pain or palpitations Respiratory/Chest Respiratory/Chest: Denies cough or dyspnea Gastrointestinal Gastrointestinal: Denies abdominal pain, diarrhea, nausea or vomiting Genitourinary Genitourinary ED: Denies dysuria Musculoskeletal Musculoskeletal: Denies myalgias Integumentary Denies rash Neurologic Neurologic: Denies headache(s) Psychiatric Psychiatric: Denies suicidal thoughts EXAM Physical Exam Const Vital Signs: 06/06/21 12:41 06/06/21 13:05 Temperature 96.8 F L 98.4 F Temperature Source Temporal Temporal Pulse Rate 80 75 Respiratory Rate 14 18 Blood Pressure 144/80 H 133/92 H Blood Pressure Mean 101 105 Blood Pressure Source Monitor Blood Pressure Position Supine Blood Pressure Location Right Arm Pulse Ox 99 98 Oxygen Delivery Method Room Air Room Air Positive well nourished and well developed General Appearance ED: well developed HEENT Reports normocephalic and head/scalp atraumatic Eyes PERRL and EOMs intact bilaterally Neck supple General: Negative for tenderness Chest Wall inspection of chest normal Resp normal respiratory effort and clear to auscultation bilaterally Cardio regular rate and regular rhythm GI non-tender and non-distended Palpation: soft; Negative for guarding or rebound tenderness present no CVA tenderness Extremity normal to inspection Neuro oriented x3 Sensorium / Orientation: alert Psych mental status grossly normal Skin no rashes or lesions noted MDM MDM MDM Narrative Medical decision making narrative: CBC unremarkable. Chemistries show AST 102, alk phos 153. Alcohol level 295. Urine tox positive for barbiturates. Patient remains hemodynamically stable. Discussed with hospitalist for admission. Lab Data Attestation: I reviewed the patient's lab results. Labs: Laboratory Results - last 24 hr 06/06/21 06/06/21 06/06/21 13:15 13:15 13:15 WBC 5.3 RBC 4.11 L Hgb 14.1 Hct 40.9 MCV 99.5 H MCH 34.3 H MCHC 34.5 RDW Std Deviation 50.2 H RDW Coeff of Shad 13.6 Plt Count 149 L MPV 10.2 Immature Gran % (Auto) 0.400 Neut % (Auto) 67.8 Lymph % (Auto) 19.9 [place] % (Auto) 8.3 Eos % (Auto) 3.2 Baso % (Auto) 0.4 Absolute Neuts (auto) 3.6 Absolute Lymphs (auto) 1.05 Nucleated RBC % 0 Sodium 140 Potassium 3.9 Chloride 104 Carbon Dioxide 29.0 Anion Gap 7 BUN 7 Creatinine 0.63 L Estim Creat Clear Calc 124.50 Est GFR (MDRD) Af Amer 169 Est GFR (MDRD) Non-Af 139 BUN/Creatinine Ratio 11.1 Glucose 83 Calcium 8.4 L Total Bilirubin 0.40 AST 102 H ALT 61 Alkaline Phosphatase 153 H Total Protein 8.1 Albumin 3.3 Globulin 4.8 H Albumin/Globulin Ratio 0.7 L Urine Opiates Screen Urine Methadone Screen Ur Barbiturates Screen Ur Phencyclidine Scrn Ur Amphetamines Screen U Methamphetamin-MDMA U Benzodiazepines Scrn Urine Cocaine Screen U Cannabinoids Screen Ur Drug Screen Comment Ethyl Alcohol 295.0 06/06/21 13:25 WBC RBC Hgb Hct MCV MCH MCHC RDW Std Deviation RDW Coeff of Shad Plt Count MPV Immature Gran % (Auto) Neut % (Auto) Lymph % (Auto) [place] % (Auto) Eos % (Auto) Baso % (Auto) Absolute Neuts (auto) Absolute Lymphs (auto) Nucleated RBC % Sodium Potassium Chloride Carbon Dioxide Anion Gap BUN Creatinine Estim Creat Clear Calc Est GFR (MDRD) Af Amer Est GFR (MDRD) Non-Af BUN/Creatinine Ratio Glucose Calcium Total Bilirubin AST ALT Alkaline Phosphatase Total Protein Albumin Globulin Albumin/Globulin Ratio Urine Opiates Screen NEGATIVE Urine Methadone Screen NEGATIVE Ur Barbiturates Screen POSITIVE H Ur Phencyclidine Scrn NEGATIVE Ur Amphetamines Screen NEGATIVE U Methamphetamin-MDMA NEGATIVE U Benzodiazepines Scrn NEGATIVE Urine Cocaine Screen NEGATIVE U Cannabinoids Screen NEGATIVE Ur Drug Screen Comment Ethyl Alcohol Discharge Plan Triage Chief Complaint: Substance Abuse ED Provider: Shari Morales Dx/Rx/DC Orders Clinical Impression: Alcohol dependence Prescriptions: No Action NK RF: 0 Primary Care Provider: Juju Ritter NP Referrals: Juju Ritter NP, LPN CMA-C [Primary Care Provider] - Disposition Disposition: Acute Care [facility]
[2021-06-06] MEDS: Phenobarbital 32.4 MG Tablet 64.8 MG PO ×2 (16:51→21:44)
[2021-06-07 01:22] VITALS: BP 143/73; PULSE 76; RESP 16; TEMP 36.8; O2SAT 95
[2021-06-07] MEDS: Phenobarbital 32.4 MG Tablet 64.8 MG PO ×6 (01:24→21:08)
--- NOTE | 2021-06-07 01:33 | PCS.PANDOC ---
PANDEMIC DOCUMENTATION INITIATED: Date: 03/10/2021 Time: 190
[2021-06-07 05:33] VITALS: BP 140/91; PULSE 69; RESP 16; TEMP 36.9; O2SAT 96
[2021-06-07 08:54] VITALS: BP 126/79; PULSE 73; RESP 16; TEMP 35.9; O2SAT 96
[2021-06-07] MEDS: Dicyclomine 10 MG Capsule 20 MG PO (09:02)
[2021-06-07] MEDS: Thiamine Hydrochloride 100 MG Tablet PO (09:02)
[2021-06-07] MEDS: Loperamide 2 MG Capsule PO (09:02)
[2021-06-07] MEDS: Folic Acid 1 MG Tablet PO (09:02)
[2021-06-07 09:39] LABS: Absolute Lymphocyte Count 0.76 X10^3/uL (0.83-4.51); Basophil# 0.02 X10^3/uL; Basophil% 0.4 % (0-1); Eosinophil# 0.11 X10^3/uL; Hematocrit 37.5 % (40-54); Lymphocyte # 0.76 X10^3/ul (0.83-4.51); Mean Corp Hgb Conc 34.7 g/dL (32-36); Mean Corpuscular Hgb 34.7 pg (27.0-32.0); Mean Platelet Vol. 10.3 fl (6.2-12.0); Monocyte# 0.54 X10^3/uL; Monocyte% 9.9 % (0-10); NRBC Flagged by Analyzer 0 % (0-5); Neutrophil # 3.99 X10^3/uL (2.7-7.7); Neutrophil % 73.3 % (47-70); Platelet Count 126 K/mm3 (150-450); RBC Distribution Width CV 13.5 % (11.6-14.6); RBC Distribution Width SD 49.8 fl (35.1-43.9); Red Blood Count 3.75 M/mm3 (4.6-6.2); White Blood Count 5.4 K/mm3 (4.4-11.0)
[2021-06-07 10:03] LABS: Anion Gap 7 (5-15); BUN 8 mg/dL (7-18); BUN/Creat Ratio 8.8 RATIO (10-20); Calcium,Total 8.4 mg/dL (8.5-10.1); Chloride 101 mmol/L (98-107); Creatinine, Serum 0.91 mg/dL (0.70-1.30); EST Glomerular Filtration Rate 91 mL/min (>60); Est Glom Filt Rate - Afr Amer 111 mL/min (>60); Estimated Creatinine Clearance 85.25 ml/min; Glucose 179 mg/dL (74-106); Magnesium 1.9 mg/dL (1.6-2.6); Phosphorus 2.4 mg/dL (2.5-4.9); Potassium 3.7 mmol/L (3.5-5.1); Sodium Level 136 mmol/L (136-145)
[2021-06-07 12:59] VITALS: BP 131/77; PULSE 65; RESP 16; TEMP 36.8; O2SAT 98
--- NOTE | 2021-06-07 15:39 | PCM.PN.HOSP ---
Subjective Subjective Patient states overall he is feeling well today. He is having a little bit of tremor today and some diarrhea. He states his appetite's been good and denies any nausea or vomiting. Indicates he would like a cup of coffee. Objective Data Objective Data Vital Signs: Vital Signs Temp Pulse Resp BP Pulse Ox 98.3 F 65 16 131/77 H 98 06/07/21 12:59 06/07/21 12:59 06/07/21 12:59 06/07/21 12:59 06/07/21 12:59 Oxygen Delivery Method Room Air Weight: 67.3 kg Body Mass Index (BMI) 19.5 Intake & Output: Intake and Output for Last 24 Hours 06/05/21 06/06/21 06/07/21 23:59 23:59 23:59 Intake Total 250 / 250 Balance 250 / 250 Medical Nutrition Assessment Dietitian: Malnutrition Criteria Met Start: 06/07/21 15:31 Freq: Status: Active Protocol: Document 06/07/21 15:31 RMA (Rec: 06/07/21 15:31 RMA [id number]) Nutrition Malnutrition Evidence of Malnutrition Exists Yes Malnutrition (severe): Chronic,Social/Behavioral/ Environmental Evidenced By Suboptimal Energy Intake ( Severe),Weight Loss (Severe) Clinical Problem Chronic Disease or Condition Related Malnutrition Etiology Severe protein/calorie malnutrition in the context of social circumstance/ETOH abuse related to inadequate energy intake and poor nutrient density Signs/Symptoms as evidenced by ~8-10% wt loss x 2 months and PO meeting less than 50% estimated nutrition needs Status Active Problem Recommendation Dietitian Recommendations/Changes Continue Regular Diet as ordered. Will add 240ml strawberry ensure enlive TID w/ meals ( additional 1050 kcal/60 gm pro ). Adjust ONS as needed to optimize nutrition for repletion. Lab / Micro Data Result Diagrams: 06/07/21 09:10 06/07/21 09:10 Labs: Laboratory Results - last 24 hr 06/07/21 09:10: WBC 5.4, RBC 3.75 L, Hgb 13.0, Hct 37.5 L, MCV 100.0 H, MCH 34.7 H, MCHC 34.7, RDW Std Deviation 49.8 H, RDW Coeff of Shad 13.5, Plt Count 126 L, MPV 10.3, Immature Gran % (Auto) 0.400, Neut % (Auto) 73.3 H, Lymph % (Auto) 14.0 L, [place] % (Auto) 9.9, Eos % (Auto) 2.0, Baso % (Auto) 0.4, Absolute Neuts (auto) 4.0, Absolute Lymphs (auto) 0.76 L, Nucleated RBC % 0 06/07/21 09:10: Sodium 136, Potassium 3.7, Chloride 101, Carbon Dioxide 28.0, Anion Gap 7, BUN 8, Creatinine 0.91, Estim Creat Clear Calc 85.25, Est GFR (MDRD) Af Amer 111, Est GFR (MDRD) Non-Af 91, BUN/Creatinine Ratio 8.8 L, Glucose 179 H, Calcium 8.4 L, Phosphorus 2.4 L, Magnesium 1.9 Physical Exam Const alert, oriented x3 and no apparent distress Constitutional Narrative: Very pleasant upper middle-aged white male who appears older than stated age, sitting up in bed, nontoxic General Appearance: cooperative HEENT normocephalic, head/scalp atraumatic, hearing grossly normal bilaterally and moist oral mucous membranes Head and Scalp: normocephalic Resp normal respiratory effort, no retractions, no use of accessory muscles and clear to auscultation bilaterally Resp Narrative: Diffusely diminished but clear Auscultation: Negative for crackles, rales, rhonchi or wheezes Cardio regular rate, regular rhythm, S1 normal heart sound, S2 normal heart sound, no murmurs, no rub, no gallops, no clicks and no JVD GI normal to inspection, nondistended, normoactive bowel sounds, soft to palpation, non-tender and non-distended Extremity normal to inspection and no clubbing, cyanosis or edema Peripheral Pulses: Yes pulses 2+ throughout Neuro oriented x3, moves all extremities and no focal motor deficits Sensorium / Orientation: awake and alert Speech: speech normal Psych affect normal Assessment & Plan Assessment/Plan (1) Alcohol withdrawal: (2) Alcohol abuse: (3) Thrombocytopenia: PLAN: Acute alcohol withdrawal -Patient desires detox and inpatient treatment program upon discharge -Continue phenobarbital taper -Thiamine and folate -Supportive medications for symptoms -[facility] following for discharge planning-patient is desiring residential treatment Thrombocytopenia -Likely related to his alcoholism -Mild -Counts are relatively stable Tobacco abuse -Recommend cessation -As needed albuterol -14 mcg nicotine patch DVT prophylaxis -Patient is low risk -Early ambulation CODE STATUS -Full code Charges/Coding Visit Charges Inpatient E&M: 43723 Subs Hosp L2
[2021-06-07 18:00] VITALS: BP 133/77; PULSE 69; RESP 16; TEMP 37; O2SAT 96
[2021-06-07 21:00] VITALS: BP 151/96; PULSE 68; RESP 18; TEMP 36.6; O2SAT 97
[2021-06-08] MEDS: Phenobarbital 32.4 MG Tablet 64.8 MG PO ×6 (01:31→22:47)
[2021-06-08 02:10] VITALS: BP 138/92; PULSE 62; RESP 18; TEMP 36.8; O2SAT 95
[2021-06-08 08:10] VITALS: BP 136/93; PULSE 64; RESP 12; TEMP 36.9; O2SAT 96
[2021-06-08] MEDS: Folic Acid 1 MG Tablet PO (09:40)
[2021-06-08] MEDS: Thiamine Hydrochloride 100 MG Tablet PO (09:40)
--- NOTE | 2021-06-08 11:45 | ADDICTION ---
This sign writer letterer or painter met with PT to conduct ASAM, MSE, AUDIT assessments and to plan for d/c. PT A+Ox4 and participated actively. All assessments completed, faxed to [facility] and placed in PT's chart. PT plans to f/u with residential treatmet at [facility] for residential and follow-up counseling services. PT reports that he will need to go home first to get his things in order. He will need an H&P sent with him to take to residential. PT did not indicate a need for transportation post d/c from [facility].
--- NOTE | 2021-06-08 13:29 | PCM.PN.HOSP ---
Subjective Subjective Patient states he is feeling well has had no complaints. Addiction medicine has not been in to see him yet but per discussion with nursing staff they will be in today. He states his tremor is better and is diarrhea has improved. No needs at this time. Objective Data Objective Data Vital Signs: Vital Signs Temp Pulse Resp BP Pulse Ox 98.5 F 64 12 136/93 H 96 06/08/21 08:10 06/08/21 08:10 06/08/21 08:10 06/08/21 08:10 06/08/21 08:10 Oxygen Delivery Method Room Air Weight: 67.3 kg Body Mass Index (BMI) 19.5 Intake & Output: Intake and Output for Last 24 Hours 06/06/21 06/07/21 06/08/21 23:59 23:59 23:59 Intake Total 250 / 250 Balance 250 / 250 Medical Nutrition Assessment Dietitian: Malnutrition Criteria Met Start: 06/07/21 15:31 Freq: Status: Active Protocol: Document 06/07/21 15:31 RMA (Rec: 06/07/21 15:31 RMA [id number]) Nutrition Malnutrition Evidence of Malnutrition Exists Yes Malnutrition (severe): Chronic,Social/Behavioral/ Environmental Evidenced By Suboptimal Energy Intake ( Severe),Weight Loss (Severe) Clinical Problem Chronic Disease or Condition Related Malnutrition Etiology Severe protein/calorie malnutrition in the context of social circumstance/ETOH abuse related to inadequate energy intake and poor nutrient density Signs/Symptoms as evidenced by ~8-10% wt loss x 2 months and PO meeting less than 50% estimated nutrition needs Status Active Problem Recommendation Dietitian Recommendations/Changes Continue Regular Diet as ordered. Will add 240ml strawberry ensure enlive TID w/ meals ( additional 1050 kcal/60 gm pro ). Adjust ONS as needed to optimize nutrition for repletion. Lab / Micro Data Result Diagrams: 06/07/21 09:10 06/07/21 09:10 Physical Exam Const alert, oriented x3 and no apparent distress Constitutional Narrative: Very pleasant upper middle-aged white male who appears older than stated age, sitting up in bed watching television, nontoxic General Appearance: cooperative Exam Limitations: no limitations HEENT normocephalic, head/scalp atraumatic, hearing grossly normal bilaterally and moist oral mucous membranes Head and Scalp: normocephalic Resp normal respiratory effort, no retractions, no use of accessory muscles and clear to auscultation bilaterally Resp Narrative: Diffusely diminished but clear Auscultation: Negative for crackles, rales, rhonchi or wheezes Cardio regular rate, regular rhythm, S1 normal heart sound, S2 normal heart sound, no murmurs, no rub, no gallops, no clicks and no JVD GI normal to inspection, nondistended, normoactive bowel sounds, soft to palpation, non-tender and non-distended Extremity normal to inspection and no clubbing, cyanosis or edema Neuro oriented x3, moves all extremities and no focal motor deficits Neuro Narrative: No tremor noted today Sensorium / Orientation: awake and alert Speech: speech normal Assessment & Plan Assessment/Plan (1) Alcohol withdrawal: (2) Alcohol abuse: (3) Thrombocytopenia: PLAN: Acute alcohol withdrawal -Patient desires detox and inpatient treatment program upon discharge -Continue phenobarbital taper -Thiamine and folate -Supportive medications for symptoms -[facility] to evaluate today for discharge planning-patient is desiring residential treatment Thrombocytopenia -Likely related to his alcoholism -Mild -Counts are relatively stable Tobacco abuse -Recommend cessation -As needed albuterol -14 mcg nicotine patch DVT prophylaxis -Patient is low risk -Early ambulation CODE STATUS -Full code Charges/Coding Visit Charges Inpatient E&M: 80731 Subs Hosp L2
[2021-06-08 14:00] VITALS: BP 131/90; PULSE 79; RESP 18; TEMP 37.1; O2SAT 14
[2021-06-08 21:15] VITALS: BP 135/91; PULSE 60; RESP 15; TEMP 36.8; O2SAT 97
[2021-06-09 00:10] VITALS: BP 113/80; PULSE 78; RESP 16; TEMP 37; O2SAT 97
[2021-06-09] MEDS: Phenobarbital 32.4 MG Tablet 64.8 MG PO ×2 (00:33→07:00)
[2021-06-09] MEDS: Folic Acid 1 MG Tablet PO (08:40)
[2021-06-09] MEDS: Thiamine Hydrochloride 100 MG Tablet PO (09:53)
[2021-06-09 10:00] VITALS: BP 117/69; PULSE 82; RESP 16; TEMP 36.7; O2SAT 93
--- NOTE | 2021-06-09 11:07 | PCM.DC ---
Discharge Instructions Diet Discharge Diet: No restrictions Activity Discharge Activity: Return to Normal Activity Weight Bearing Status: Full weight bearing Follow Up Care Test Results: Test results from this visit will be discussed in further detail at your follow-up appointment, if applicable. Discharge Plan Admission Admit Date/Time: 06/06/21 13:21 Primary Reason for Your Visit: alcohol detox Attending Provider: Kasi Whitten Primary Care Provider: Juju Ritter NP Discharge Orders/Prescriptions Prescriptions: No Action NK RF: 0 Referrals / Follow Up: Juju Ritter NP, ELECTRONIC CONTROLS REPAIRER SUPERVISOR-C [Primary Care Provider] - Within 1 Month Disposition Disposition (needs filled in before D/C Order can be placed): Home, Self Care
--- NOTE | 2021-06-09 11:10 | DS.PCM_ITS ---
Providers Date of Admission: 06/06/21 Date of Discharge: 06/09/21 Primary Care Physician: Juju Ritter, CERTIFIED GENETIC COUNSELOR-C Reason For Visit: ACUTE ALCOHOL WITHDRAWAL Diagnosis Discharge Diagnosis (1) Alcohol withdrawal: Status: Acute Code(s): F10.239 - Alcohol dependence with withdrawal, unspecified (2) Alcohol abuse: Status: Chronic Code(s): F10.10 - Alcohol abuse, uncomplicated (3) Thrombocytopenia: Status: Acute Code(s): D69.6 - Thrombocytopenia, unspecified Plan: 1. Acute alcohol withdrawal #2 chronic alcoholism #3 severe caloric and protein malnutrition #4 thrombocytopenia secondary to alcoholism #5 alcohol intoxication Medications at Discharge Home Medications NK 06/06/21 Hospital Course Operations None Procedures None Summary of Care Provided Minutes Spent on Discharge: 31 Hospital Course: This 55-year-old white male was seen in the emergency room at [facility] requesting services for alcohol detox. He contacted 180 was and was advised to come to the emergency room for admission for alcohol detox. Patient had been hospitalized a month before and had abated in the alcohol detox program here. Labs were remarkable for a slightly low platelet count and a blood alcohol level of 295. Patient was admitted to [place] [id number], orders were entered using the alcohol detox order set, he was seen by addiction mental health social worker and arrangements were made for follow-up care after he was discharged. Patient had no DTs during his hospital stay. Was seen by nutritional services due to severe caloric and protein malnutrition. On 06/09/2021, patient was seen and examined: On examination he appeared in good health and spirits. Vital signs as documented. Skin warm and dry and without overt rashes. Neck without JVD, neck was supple, trachea midline, thyroid was normal. Lungs clear bilaterally, normal air movement was noted. Heart exam notable for regular rhythm, normal sounds and absence of murmurs, rubs or gallops. Abdomen unremarkable and without evidence of organomegaly, masses, or abdominal aortic enlargement. Bowel sounds are present, abdomen is not dist ended. Extremities nonedematous, no cyanosis was noted, no clubbing was noted. Neuro: Cranial nerves II through XII are grossly intact, no focal motor deficits were noted, sensation to light touch and pinprick intact, motor exam 5/5 throughout. Psych: Patient is alert and oriented x3, he does not appear anxious or depressed, he does not appear agitated. Patient was discharged in stable condition on 06/09/2021. Medical Records Data Medical Nutrition Assessment Dietitian: Malnutrition Criteria Met Start: 06/07/21 15:31 Freq: Status: Active Protocol: Document 06/07/21 15:31 RMA (Rec: 06/07/21 15:31 RMA [id number]) Nutrition Malnutrition Evidence of Malnutrition Exists Yes Malnutrition (severe): Chronic,Social/Behavioral/ Environmental Evidenced By Suboptimal Energy Intake ( Severe),Weight Loss (Severe) Clinical Problem Chronic Disease or Condition Related Malnutrition Etiology Severe protein/calorie malnutrition in the context of social circumstance/ETOH abuse related to inadequate energy intake and poor nutrient density Signs/Symptoms as evidenced by ~8-10% wt loss x 2 months and PO meeting less than 50% estimated nutrition needs Status Active Problem Recommendation Dietitian Recommendations/Changes Continue Regular Diet as ordered. Will add 240ml strawberry ensure enlive TID w/ meals ( additional 1050 kcal/60 gm pro ). Adjust ONS as needed to optimize nutrition for repletion. Weight / BMI Weight Weight: 67.3 kg Body Mass Index (BMI) 19.5 ABG / Lab / Microbiology Data Result Diagrams: 06/07/21 09:10 06/07/21 09:10 D/C Instructions Discharge Diet: No restrictions Weight Bearing Status: Full weight bearing Meaningful Use Info Meaningful Use Diagnoses (Choose all that apply): None applicable Discharge Plan Admission Admit Date/Time: 06/06/21 13:21 Primary Reason for Your Visit: alcohol detox Attending Provider: Kasi Whitten Primary Care Provider: Juju Ritter NP Discharge Orders/Prescriptions Prescriptions: No Action NK RF: 0 Referrals / Follow Up: Juju Ritter NP, CERTIFIED GENETIC COUNSELOR-C [Primary Care Provider] - Within 1 Month Disposition Disposition (needs filled in before D/C Order can be placed): Home, Self Care Charges/Coding Visit Charges Inpatient E&M: 77120 Disch Hosp
== END 2021-06-09 11:16 | disposition home or self-care (01) | DRG 775 ==
LOC: ED 14:17 → MS2 06-09 08:06
PROVIDERS: Admitting Provider Internal Medicine; Emergency Provider Emergency Medicine; PCP Nurse Practitioner Primary Care; Visit Provider Internal Medicine
DX: F10.239 Alcohol dependence with withdrawal, unspecified (principal); E43 Unspecified severe protein-calorie malnutrition; F10.229 Alcohol dependence with intoxication, unspecified; D69.6 Thrombocytopenia, unspecified; Z68.1 Body mass index [BMI] 19.9 or less, adult; Y90.8 Blood alcohol level of 240 mg/100 ml or more; F17.210 Nicotine dependence, cigarettes, uncomplicated
CPT/HCPCS: 36415; 80048; 80053; 80307; 82077; 83735; 84100; 85025; 97802; 99218; 99251; 99284; 99406; A4216; G0378; G0463

== ENCOUNTER 2021-06-25 10:05 | Observation (INO) | payer MEDICAID, SELFPAY ==
[2021-06-25 10:06] VITALS: BP 133/86; PULSE 85; RESP 14; TEMP 36.3; O2SAT 99; BMI 20.2
--- NOTE | 2021-06-25 10:27 | EX.ED.SAOD ---
HPI History of Present Illness Chief Complaint: Substance Abuse Informant: patient Narrative Narrative: Patient presents for treatment for alcohol detox. He went through detox about 2 to 3 weeks ago. He states after doing that he started drinking maybe an hour after he left the hospital. He drinks about 1/5 of vodka a day. He last drank about an hour and a half ago. He gets shakes if he does not drink. He denies any history of withdrawal seizures though. He has no physical complaints at this time. He states he has a chronic smoker's cough but there is no interval change. PFSH PFSH Medical History Alcohol abuse Alcohol dependence Alcoholism Anxiety Depression Smoker Home Medications NK 06/06/21 [History Last Taken Unknown] Allergy/AdvReac Type Severity Reaction Status Date / Time No Known Allergies Allergy Verified 06/25/21 10:07 Family History Other Cancer Social History Smoking Status: Current every day smoker tobacco type: cigarettes alcohol intake: current alcohol intake frequency: 3 or more drinks per day Alcohol type: hard liquor substance use type: does not use ROS ROS ED Constitutional Constitutional ED: Denies chills or fever(s) Eyes Eyes: Denies change in vision ENT ENT ED: Denies rhinorrhea or sore throat Cardiovascular Cardiovascular: Denies chest pain Respiratory/Chest Respiratory/Chest: Reports cough and other Details: He states he has a chronic cough from smoking but there is no interval change or difference. ; Denies dyspnea, dyspnea on exertion or sputum Gastrointestinal Gastrointestinal: Reports other Details: No blood in the stool. He is able to eat and drink. ; Denies abdominal pain, diarrhea, nausea or vomiting Genitourinary Genitourinary ED: Denies dysuria Musculoskeletal Musculoskeletal: Denies arthralgias or myalgias Integumentary Denies rash Neurologic Neurologic: Denies headache(s) Endocrine Endocrinology: Denies polydipsia or polyuria Hematologic/Lymphatic Hematologic/Lymphatic: Denies easy bleeding or easy bruising Allergic/Immunologic Allergic/Immunologic ED: Denies urticaria EXAM Physical Exam Const Vital Signs: 06/25/21 10:06 Temperature 97.3 F L Temperature Source Temporal Pulse Rate 85 Respiratory Rate 14 Blood Pressure 133/86 H Blood Pressure Mean 101 Pulse Ox 99 Oxygen Delivery Method Room Air Positive well nourished and well developed General Appearance ED: well developed HEENT Reports moist mucous membranes atraumatic Eyes EOMs intact bilaterally General Eye ED: Negative for pale conjunctiva Neck no JVD Lymph Lymphatic: Negative for no lymphadenopathy noted Resp normal respiratory effort and clear to auscultation bilaterally Auscultation: Negative for rales, rhonchi, wheezes or diminished lung sounds Cardio regular rate and regular rhythm GI soft to palpation, non-tender and non-distended Back/Spine no CVA tenderness Extremity General Extremety ED: Negative for edema or tenderness General Extremity: Negative for edema Neuro oriented x3 Sensorium / Orientation: alert Psych mental status grossly normal Skin Lesions: no lesions Rashes: no rashes MDM MDM MDM Narrative Medical decision making narrative: She has no physical complaint. He has no fevers or chills. He request detox. I discussed case with hospitalist. He will be admitted. We discussed getting blood work. But he has blood work just from 2 weeks ago. They will decide if they need further testing upstairs. Discharge Plan Triage Chief Complaint: Substance Abuse ED Provider: Troy Mace Dx/Rx/DC Orders Clinical Impression: Alcohol abuse, Admitted to alcohol detoxification center Prescriptions: No Action NK RF: 0 Primary Care Provider: Juju Ritter NP Referrals: Juju Ritter NP, SCUBA INSTRUCTOR-C [Primary Care Provider] - Disposition Disposition: Acute Care Hospital [facility]
--- NOTE | 2021-06-25 10:30 | HP.PCM.HOS_ITS ---
HPI - General General Date of Admission: 06/25/21 Date of Service: 06/25/21 Chief Complaint: Desire for detoxification from alcohol HPI Narrative AMANDA KOROMA, is a 55 M who past medical history significant for alcohol dependence discharged from the hospital 2 weeks prior following hospitalization for medical stabilization. Per patient he relapsed after being discharged. He presented back to the ED with this type determined to quit. Admitted to regular nursing floor for further management [facility] Medical History Alcohol abuse Alcohol dependence Alcoholism Anxiety Depression Smoker Home Medications NK 06/06/21 [History Last Taken Unknown] Allergy/AdvReac Type Severity Reaction Status Date / Time No Known Allergies Allergy Verified 06/25/21 10:07 Family History Other Cancer Social History Smoking Status: Current every day smoker tobacco type: cigarettes alcohol intake: current alcohol intake frequency: 3 or more drinks per day Alcohol type: hard liquor substance use type: does not use ROS ROS Narrative GENERAL: denies fever, chills, night sweats, weight loss, anorexia HEENT: denies headache, sinus congestion, or drainage, dysphagia RESPIRATORY: denies cough, sputum production, shortness of breath, dyspnea on exertion CARDIAC: denies chest pain, palpitations, orthopnea, PND GASTROINTESTINAL: denies abdominal pain, nausea, vomiting, melena, GENITOURINARY: denies dysuria, urgency, frequency, heamaturia EXTREMITY: denies swelling MUSCULOSKELETAL: denies current joint pain or tenderness NEUROLOGIC: denies focal numbness, weakness, tingling HEMATOLOGIC: denies easy bruising and/or hemorrhage INTEGUMENT: denies rashes PSYCHIATRIC: denies suicidal or homicidal ideation Vital Signs Vital Signs Vital Signs: 06/25/21 10:06 Temperature 97.3 F L Temperature Source Temporal Pulse Rate 85 Respiratory Rate 14 Blood Pressure 133/86 H Blood Pressure Mean 101 Pulse Ox 99 Oxygen Delivery Method Room Air Weight Weight: 69.4 kg Body Mass Index (BMI) 20.2 Physical Exam Narrative GENERAL: cooperative HEENT: Atraumatic; EYES; Anicteric, Normal Conjunctiva NECK; supple, normal thyroid, RESPIRATORY: Diminished to auscultation CARDIOVASCULAR: Regular S1 S2, GI: soft, normoactive bowel sounds, : No Renal angle tenderness; EXTREMITIES: No edema, no clubbing, MUSCULOSKELETAL: no muscle waisting NEURO: Awake; no lateralizing signs. SKIN: No Rash PSYCH; Flat affect Results Lab / Micro Data Result Diagrams: 06/25/21 10:40 06/25/21 10:40 Assessment & Plan Assessment/Plan (1) Admitted to alcohol detoxification center: (2) Alcohol abuse: PLAN: Patient is a 55-year-old gentleman with history of chronic alcohol dependence presented wanting to undergo medical stabilization 1. Chronic alcohol abuse ?Patient has been admitted for medical stabilization using phenobarb taper 2. Tobacco dependence - Counseled on cessation, offered nicotine patch for tobacco cravings 3. DVT prophylaxis ?[place] Lovenox Charges/Coding Visit Charges Inpatient E&M: 30878 Init Hosp L2
[2021-06-25 10:35] VITALS: BP 133/80; PULSE 85; RESP 14; TEMP 36.3; O2SAT 99
[2021-06-25 10:51] LABS: Absolute Lymphocyte Count 1.66 X10^3/uL (0.83-4.51); Absolute Neutrophil Count 3.1 X10^3/uL (2.0-7.7); Basophil# 0.06 X10^3/uL; Basophil% 1.1 % (0-1); Eosinophil# 0.16 X10^3/uL; Eosinophils% 2.9 % (0-5); Hemoglobin 15.7 g/dL (13.0-16.5); Lymphocyte # 1.66 X10^3/ul (0.83-4.51); Lymphocyte % 30.6 % (19-41); Mean Corp Hgb Conc 35.7 g/dL (32-36); Mean Corpuscular Hgb 36.3 pg (27.0-32.0); Mean Corpuscular Volume 101.6 fL (80-94); Mean Platelet Vol. 9.6 fl (6.2-12.0); Monocyte# 0.44 X10^3/uL; Monocyte% 8.1 % (0-10); NRBC Flagged by Analyzer 0 % (0-5); Neutrophil # 3.08 X10^3/uL (2.7-7.7); Neutrophil % 56.7 % (47-70); Platelet Count 320 K/mm3 (150-450); RBC Distribution Width CV 14.1 % (11.6-14.6); Red Blood Count 4.33 M/mm3 (4.6-6.2); White Blood Count 5.4 K/mm3 (4.4-11.0)
[2021-06-25 11:01] LABS: International Normalized Ratio 0.9; Prothrombin Time (Protime)PT. 11.7 SECONDS (11.7-14.9)
[2021-06-25 11:11] LABS: ALB/GLOB Ratio 0.8 RATIO (0.9-2.4); AST(SGOT) 58 U/L (15-37); Alanine Aminotransfer ALT/SGPT 43 U/L (16-61); Albumin, Serum 3.9 g/dL (3.2-5.0); Alkaline Phosphatase 132 U/L (45-117); Amylase 66 U/L (25-115); Anion Gap 9 (5-15); BUN 8 mg/dL (7-18); BUN/Creat Ratio 10.9 RATIO (10-20); Calcium,Total 8.6 mg/dL (8.5-10.1); Chloride 102 mmol/L (98-107); Creatinine, Serum 0.74 mg/dL (0.70-1.30); EST Glomerular Filtration Rate 116 mL/min (>60); Est Glom Filt Rate - Afr Amer 141 mL/min (>60); Estimated Creatinine Clearance 108.11 ml/min; Glucose 85 mg/dL (74-106); Lipase 93 U/L (73-393); Potassium 3.9 mmol/L (3.5-5.1); Protein, Total 8.9 g/dL (6.4-8.2); Sodium Level 140 mmol/L (136-145)
[2021-06-25 11:38] LABS: Amphetamine Urine VISTA NEGATIVE (<1000 ng/mL); Barbiturate Urine VISTA POSITIVE (< 200 ng/mL); Benzodiazepine Urine VISTA NEGATIVE (< 200 ng/mL); Cocaine Urine VISTA NEGATIVE (< 300 ng/mL); Ecstacy Urine VISTA NEGATIVE (< 500 ng/mL); Methadone Urine VISTA NEGATIVE (< 300 ng/mL); PCP Urine VISTA NEGATIVE (< 25 ng/mL); THC Urine VISTA NEGATIVE (< 50 ng/mL); Vista UDS pH Range 7
--- NOTE | 2021-06-25 12:26 | CM.ED ---
SOCIAL WORK Reason for Consult: Substance Abuse Patient presented for detox from alcohol. Patient reports drinks a 5th of vodka a day. Last drink was prior to arrival. Patient has signed [facility] agreement. [facility] Addiction Therapist notified of patient's admission to [facility]. Plan: FELIPA Villeda, OFFICE WORKER, CREDIT PORTFOLIO MANAGER
[2021-06-25 12:29] VITALS: PULSE 70; RESP 16; O2SAT 99
[2021-06-25 12:35] VITALS: BP 107/69; PULSE 68; RESP 16; TEMP 36.6; O2SAT 99; BMI 19.2
[2021-06-25] MEDS: Lactated Ringers 1,000 ML 125 ML IV (12:52)
[2021-06-25] MEDS: Phenobarbital 32.4 MG Tablet 64.8 MG PO ×4 (12:52→23:29)
[2021-06-25 16:26] VITALS: BP 112/69; PULSE 86; RESP 16; TEMP 37.2; O2SAT 97
--- NOTE | 2021-06-25 18:59 | PCS.PANDOC ---
PANDEMIC DOCUMENTATION INITIATED: Date: 03/10/2021 Time: 190
[2021-06-25 22:00] VITALS: BP 126/86; PULSE 66; RESP 16; TEMP 36.9; O2SAT 96
[2021-06-26] MEDS: Phenobarbital 32.4 MG Tablet 64.8 MG PO ×6 (03:48→23:23)
[2021-06-26 03:50] VITALS: BP 140/89; PULSE 56; RESP 16; TEMP 36.7; O2SAT 98
--- NOTE | 2021-06-26 07:21 | PN.HOSP_ITS ---
Subjective Subjective Patient seen complains of tremulousness otherwise as tolerated phenobarb taper well so far Objective Data Objective Data Vital Signs: Vital Signs Temp Pulse Resp BP Pulse Ox 98.1 F 56 L 16 140/89 H 98 06/26/21 03:50 06/26/21 03:50 06/26/21 03:50 06/26/21 03:50 06/26/21 03:50 Oxygen Delivery Method Room Air Weight: 65.8 kg Body Mass Index (BMI) 19.2 Intake & Output: Intake and Output for Last 24 Hours 06/24/21 06/25/21 06/26/21 23:59 23:59 23:59 Intake Total 1000 / 1300 600 / 600 Balance 1000 / 1300 600 / 600 Lab / Micro Data Result Diagrams: 06/25/21 10:40 06/25/21 10:40 Labs: Laboratory Results - last 24 hr 06/25/21 10:40: WBC 5.4, RBC 4.33 L, Hgb 15.7, Hct 44.0, MCV 101.6 H, MCH 36.3 H , MCHC 35.7, RDW Std Deviation 53.0 H, RDW Coeff of Shad 14.1, Plt Count 320, MPV 9.6, Immature Gran % (Auto) 0.600, Neut % (Auto) 56.7, Lymph % (Auto) 30.6, Iroquois % (Auto) 8.1, Eos % (Auto) 2.9, Baso % (Auto) 1.1 H, Absolute Neuts (auto) 3.1, Absolute Lymphs (auto) 1.66, Nucleated RBC % 0 06/25/21 10:40: PT 11.7, INR 0.9 06/25/21 10:40: Sodium 140, Potassium 3.9, Chloride 102, Carbon Dioxide 29.0, Anion Gap 9, BUN 8, Creatinine 0.74, Estim Creat Clear Calc 108.11, Est GFR (MDRD) Af Amer 141, Est GFR (MDRD) Non-Af 116, BUN/Creatinine Ratio 10.9, Glucose 85, Calcium 8.6, Total Bilirubin 0.50, AST 58 H, ALT 43, Alkaline Ph osphatase 132 H, Total Protein 8.9 H, Albumin 3.9, Globulin 5.0 H, Albumin/Globulin Ratio 0.8 L, Amylase 66, Lipase 93 06/25/21 10:40: Ethyl Alcohol 319.0 H* 06/25/21 11:20: Urine Opiates Screen NEGATIVE, Urine Methadone Screen NEGATIVE, Ur Barbiturates Screen POSITIVE H, Ur Phencyclidine Scrn NEGATIVE, Ur Amphetamines Screen NEGATIVE, U Methamphetamin-MDMA NEGATIVE, U Benzodiazepines Scrn NEGATIVE, Urine Cocaine Screen NEGATIVE, U Cannabinoids Screen NEGATIVE, Ur Drug Screen Comment Physical Exam Narrative GENERAL: cooperative HEENT: Atraumatic; EYES; Anicteric, Normal Conjunctiva NECK; supple, normal thyroid, RESPIRATORY: Diminished to auscultation CARDIOVASCULAR: Regular S1 S2, GI: soft, normoactive bowel sounds, : No Renal angle tenderness; EXTREMITIES: No edema, no clubbing, MUSCULOSKELETAL: no muscle waisting NEURO: Awake; no lateralizing signs. SKIN: No Rash PSYCH; Flat affect Assessment & Plan Assessment/Plan (1) Admitted to alcohol detoxification center: (2) Alcohol abuse: PLAN: Patient is a 55-year-old gentleman with history of chronic alcohol dependence presented wanting to undergo medical stabilization 1. Chronic alcohol abuse ?Patient has been admitted for medical stabilization using phenobarb taper ?06/26/2021; Patient seen complains of tremulousness otherwise as tolerated phenobarb taper well so far 2. Tobacco dependence - Counseled on cessation, offered nicotine patch for tobacco cravings 3. DVT prophylaxis ?DANIEL Ny Charges/Coding Visit Charges Inpatient E&M: 88102 Subs Hosp L2
[2021-06-26] MEDS: Thiamine Hydrochloride 100 MG Tablet PO (07:52)
[2021-06-26] MEDS: Folic Acid 1 MG Tablet PO (07:52)
[2021-06-26 08:00] VITALS: BP 138/86; PULSE 59; RESP 20; TEMP 36.6; O2SAT 99
[2021-06-26 10:00] VITALS: BP 140/90; PULSE 76; RESP 16; RESP 18; TEMP 36.8; O2SAT 98
[2021-06-26] MEDS: Enoxaparin 40 MG/0.4 ML Syringe SC (10:22)
[2021-06-26 13:23] VITALS: BP 121/71; PULSE 68; RESP 16; TEMP 36.8; O2SAT 97
--- NOTE | 2021-06-26 14:43 | ADDICTION ---
This hand sign writer met with PT to conduct ASAM, MSE, AUDIT assessments and to plan for d/c. PT A+Ox4 and participated actively. All assessments completed, faxed to [facility] and placed in PT's chart. PT plans to f/u with [facility] for residential treatment and follow-up counseling services if approved. PT did not indicate a need for transportation post d/c from [facility].
[2021-06-26 16:00] VITALS: BP 130/74; PULSE 74; RESP 16; TEMP 37.2; O2SAT 98
[2021-06-26 23:27] VITALS: BP 131/79; PULSE 59; RESP 16; TEMP 36.7; O2SAT 96
[2021-06-27] MEDS: Phenobarbital 32.4 MG Tablet 64.8 MG PO ×5 (03:30→20:20)
[2021-06-27 05:27] VITALS: BP 128/88; PULSE 63; RESP 16; TEMP 36.4; O2SAT 98
--- NOTE | 2021-06-27 07:25 | PCM.PN.HOSP ---
Subjective Subjective Patient seen had a relatively uneventful night. Awaiting evaluation by 180 prior to disposition Objective Data Objective Data Vital Signs: Vital Signs Temp Pulse Resp BP Pulse Ox 97.5 F L 63 16 128/88 H 98 06/27/21 05:27 06/27/21 05:27 06/27/21 05:27 06/27/21 05:27 06/27/21 05:27 Oxygen Delivery Method Room Air Weight: 65.8 kg Body Mass Index (BMI) 19.2 Intake & Output: Intake and Output for Last 24 Hours 06/25/21 06/26/21 06/27/21 23:59 23:59 23:59 Intake Total 1000 / 1300 2700 / 2700 600 / 600 Balance 1000 / 1300 2700 / 2700 600 / 600 Lab / Micro Data Result Diagrams: 06/25/21 10:40 06/25/21 10:40 Physical Exam Narrative GENERAL: cooperative HEENT: Atraumatic; EYES; Anicteric, Normal Conjunctiva NECK; supple, normal thyroid, RESPIRATORY: Diminished to auscultation CARDIOVASCULAR: Regular S1 S2, GI: soft, normoactive bowel sounds, : No Renal angle tenderness; EXTREMITIES: No edema, no clubbing, MUSCULOSKELETAL: no muscle waisting NEURO: Awake; no lateralizing signs. SKIN: No Rash PSYCH; Flat affect Assessment & Plan Assessment/Plan (1) Admitted to alcohol detoxification center: (2) Alcohol abuse: PLAN: Patient is a 55-year-old gentleman with history of chronic alcohol dependence presented wanting to undergo medical stabilization 1. Chronic alcohol abuse ?Patient has been admitted for medical stabilization using phenobarb taper ?06/26/2021; Patient seen complains of tremulousness otherwise as tolerated phenobarb taper well so far ?06/27/2021; uneventful night. Awaiting evaluation by 118 prior to disposition. 2. Tobacco dependence - Counseled on cessation, offered nicotine patch for tobacco cravings 3. DVT prophylaxis ?[place] Lovenox Charges/Coding Visit Charges Inpatient E&M: 89636 Subs Hosp L2
[2021-06-27 07:55] VITALS: BP 127/76; PULSE 78; RESP 16; TEMP 36.6; O2SAT 97
[2021-06-27] MEDS: Folic Acid 1 MG Tablet PO (08:12)
[2021-06-27] MEDS: Thiamine Hydrochloride 100 MG Tablet PO (08:12)
[2021-06-27] MEDS: Enoxaparin 40 MG/0.4 ML Syringe SC (08:12)
--- NOTE | 2021-06-27 11:00 | RAD.NOTE ---
verbal report given to Dustin BASILIO
--- NOTE | 2021-06-27 11:27 | ADDICTION ---
This worker met with PT to discuss d/c planning. PT has been approved and has agreed to go to [facility] in [place]. [facility] will provide transport and will be here on 06/28 at 11-11:30 to pick PT up. Pt reported that his friend Rylan Tiffanie will be dropping off additional belongings to [facility] for his stay at residential.
[2021-06-27 14:21] VITALS: BP 116/83; PULSE 71; RESP 16; TEMP 36.8; O2SAT 98
[2021-06-27 20:03] VITALS: BP 118/74; PULSE 60; RESP 16; TEMP 36.7; O2SAT 98
[2021-06-28 01:20] VITALS: BP 119/80; PULSE 63; RESP 16; TEMP 36.6; O2SAT 99
[2021-06-28] MEDS: Phenobarbital 32.4 MG Tablet 64.8 MG PO ×2 (01:22→06:38)
[2021-06-28 06:36] VITALS: BP 114/75; PULSE 65; RESP 16; TEMP 36.6; O2SAT 97
--- NOTE | 2021-06-28 06:49 | PCM.DC.SUM ---
Providers Date of Admission: 06/25/21 Primary Care Physician: ROMIE Farmer Reason For Visit: ALCOHOL DETOX Diagnosis Discharge Diagnosis (1) Admitted to alcohol detoxification center: Status: Acute (2) Alcohol abuse: Status: Acute Code(s): F10.10 - Alcohol abuse, uncomplicated Medications at Discharge Home Medications NK 06/06/21 Hospital Course Summary of Care Provided Minutes Spent on Discharge: 35 Hospital Course: Patient is a 55-year-old gentleman with history of chronic alcohol dependence presented wanting to undergo medical stabilization 1. Chronic alcohol abuse ?Patient has been admitted for medical stabilization using phenobarb taper ?06/26/2021; Patient seen complains of tremulousness otherwise as tolerated phenobarb taper well so far ?06/27/2021; uneventful night. Awaiting evaluation by 180 prior to disposition. -Patient was discharged to residential facility in [place] 2. Tobacco dependence - Counseled on cessation, offered nicotine patch for tobacco cravings 3. DVT prophylaxis ?[place] Lovenox Physical Exam Narrative GENERAL: cooperative HEENT: Atraumatic; EYES; Anicteric, Normal Conjunctiva NECK; supple, normal thyroid, RESPIRATORY: Diminished to auscultation CARDIOVASCULAR: Regular S1 S2, GI: soft, normoactive bowel sounds, : No Renal angle tenderness; EXTREMITIES: No edema, no clubbing, MUSCULOSKELETAL: no muscle waisting NEURO: Awake; no lateralizing signs. SKIN: No Rash Weight / BMI Weight Weight: 65.8 kg Body Mass Index (BMI) 19.2 ABG / Lab / Microbiology Data Result Diagrams: 06/25/21 10:40 06/25/21 10:40 D/C Instructions Discharge Diet: No restrictions Discharge Activity: Return to Normal Activity Call your doctor if you observe: Fever of 101 or Higher, Shortness of breath, Fainting spells and Chest pain Meaningful Use Info Meaningful Use Diagnoses (Choose all that apply): None applicable Discharge Plan Admission Admit Date/Time: 06/25/21 13:35 Attending Provider: Raman Salvador Primary Care Provider: Juju Ritter NP Discharge Orders/Prescriptions Prescriptions: No Action NK RF: 0 Referrals / Follow Up: Juju Ritter NP, PETROLEUM SAMPLER-C [Primary Care Provider] - Disposition Disposition (needs filled in before D/C Order can be placed): Home, Self Care Charges/Coding Visit Charges Inpatient E&M: 93530 Disch Hosp
[2021-06-28] MEDS: Folic Acid 1 MG Tablet PO (07:58)
[2021-06-28] MEDS: Thiamine Hydrochloride 100 MG Tablet PO (07:58)
[2021-06-28] MEDS: Enoxaparin 40 MG/0.4 ML Syringe SC (07:59)
[2021-06-28 08:16] VITALS: BP 124/87; PULSE 69; RESP 16; TEMP 36.6; O2SAT 98
== END 2021-06-28 11:20 | disposition home or self-care (01) | DRG 775 ==
LOC: ED 10:31 → MS3 06-26 10:06
PROVIDERS: Admitting Provider Internal Medicine; Emergency Provider Emergency Medicine; PCP Nurse Practitioner Primary Care; Visit Provider Internal Medicine
DX: F10.20 Alcohol dependence, uncomplicated (principal); F17.210 Nicotine dependence, cigarettes, uncomplicated; Y90.8 Blood alcohol level of 240 mg/100 ml or more
CPT/HCPCS: 80053; 80307; 82077; 82150; 83690; 85025; 85610; 96360; 96361; 96372; 97802; 99218; 99283; 99406; J7120; A4216; G0378

== ENCOUNTER 2021-11-30 11:53 | Observation (INO) | payer MEDICAID, SELFPAY ==
[2021-11-30 11:55] VITALS: BP 137/79; PULSE 78; RESP 18; TEMP 36.4; O2SAT 97; BMI 21.7
--- NOTE | 2021-11-30 12:12 | EDS_ITS ---
HPI History of Present Illness Chief Complaint: Substance Abuse Informant: patient Onset/Context/Timing Onset: Days (4) Context: Gradual Onset Timing: Continuous Worsened by: Nothing Relieved by: Nothing Associated Symptoms Associated Symptoms: Negative for vomiting*, diarrhea*, fever*, rash*, seizure, tremor, palpatations, change in mental status, suicidal ideation and homicidal ideation Narrative Narrative: Patient presents requesting detox from alcohol. Patient states he drinks approximately 2 pints of vodka per day. Patient states he has been drinking for the last 4 days. Patient states his last drink was this morning. Patient states he underwent detox here twice in the past. Patient states his most recent admission for detox was approximately 6 months ago. Patient states he has been sober for the last 5 months and just started drinking again over the last 4 days. Patient denies any suicidal or homicidal ideations. Patient denies any nausea or vomiting. Patient denies any tremors or palpitations. Patient denies any visual or auditory hallucinations. PFSH PFS Medical History Alcohol abuse Alcohol dependence Alcoholism Anxiety Depression Smoker Home Medications NK 11/30/21 [History Last Taken Unknown] Allergy/AdvReac Type Severity Reaction Status Date / Time No Known Allergies Allergy Verified 11/30/21 11:55 Family History Other Cancer Social History Smoking Status: Current every day smoker tobacco type: cigarettes alcohol intake: current alcohol intake frequency: 3 or more drinks per day Alcohol type: hard liquor substance use type: does not use ROS ROS ED Constitutional Constitutional ED: Denies chills or fever(s) Eyes Eyes: Denies blurry vision or change in vision ENT ENT ED: Denies rhinorrhea or sore throat Cardiovascular Cardiovascular: Denies chest pain or palpitations Respiratory/Chest Respiratory/Chest: Denies cough or dyspnea Gastrointestinal Gastrointestinal: Denies nausea or vomiting Genitourinary Genitourinary ED: Denies dysuria or hematuria Musculoskeletal Musculoskeletal: Denies back pain or neck pain Integumentary Denies abscess or rash Neurologic Neurologic: Denies headache(s) or weakness Allergic/Immunologic Allergic/Immunologic ED: Denies mouth swelling or urticaria EXAM Physical Exam Const Vital Signs: 11/30/21 11:55 Temperature 97.6 F L Temperature Source Temporal Pulse Rate 78 Respiratory Rate 18 Blood Pressure 137/79 H Blood Pressure Mean 98 Pulse Ox 97 Oxygen Delivery Method Room Air Positive well nourished and well developed General Appearance ED: well developed HEENT Reports moist mucous membranes Neck supple and no JVD Resp normal respiratory effort and clear to auscultation bilaterally Cardio regular rate, regular rhythm and no murmurs GI normal to inspection, nondistended, normoactive bowel sounds and non-tender Palpation: soft Extremity normal to inspection General Extremety ED: Negative for edema or tenderness General Extremity: Negative for edema Neuro oriented x3, CN's II-XII intact bilaterally and no sensory deficits noted Marcela Coma Scale: document GCS findings Spontaneous Obeys Commands Oriented 15 Sensorium / Orientation: alert Motor Exam: strength 5/5 throughout Psych mental status grossly normal and thought process normal Thought Content: No suicidality, No homicidality and No hallucination(s) Skin no rashes or lesions noted MDM MDM MDM Narrative Medical decision making narrative: Basic labs were obtained. CBC was within normal limits. PT was INR was normal. Comprehensive metabolic profile was essentially within normal limits. Serum alcohol level was elevated at 262. Urine tox screen is ordered and is negative. Urinalysis does not show any evidence of urinary tract infection. Case was discussed with the hospitalist. She will admit the patient to her service. Patient understood and was agreeable with the plan. All questions were answered. Lab Data Attestation: I reviewed the patient's lab results. Labs: Laboratory Results - last 24 hr 11/30/21 11/30/21 11/30/21 12:30 12:30 12:30 WBC 9.8 RBC 4.73 Hgb 14.9 Hct 44.5 MCV 94.1 H MCH 31.5 MCHC 33.5 RDW Std Deviation 47.2 H RDW Coeff of Shad 13.6 Plt Count 299 MPV 10.7 Immature Gran % (Auto) 0.400 Neut % (Auto) 68.0 Lymph % (Auto) 24.4 [place] % (Auto) 4.3 Eos % (Auto) 2.4 Baso % (Auto) 0.5 Absolute Neuts (auto) 6.6 Absolute Lymphs (auto) 2.38 Nucleated RBC % 0 PT 12.2 INR 0.9 Sodium 142 Potassium 3.7 Chloride 108 H Carbon Dioxide 29.0 Anion Gap 5 BUN 13 Creatinine 0.85 Estim Creat Clear Calc 100.28 Est GFR (MDRD) Af Amer 120 Est GFR (MDRD) Non-Af 99 BUN/Creatinine Ratio 15.4 Glucose 81 Calcium 8.7 Total Bilirubin 0.60 AST 24 ALT 21 Alkaline Phosphatase 100 Total Protein 8.3 H Albumin 4.3 Globulin 4.0 Albumin/Globulin Ratio 1.1 Urine Color Urine Clarity Urine pH Ur Specific [place] Urine Protein Urine Glucose (UA) Urine Ketones Urine Occult Blood Urine Nitrite Urine Bilirubin Urine Urobilinogen Ur Leukocyte Esterase Urine RBC Urine WBC Ur Squamous Epith Cells Urine Bacteria Urine Mucus Urine Opiates Screen Urine Methadone Screen Ur Barbiturates Screen Ur Phencyclidine Scrn Ur Amphetamines Screen MDMA (Ecstasy) Screen U Benzodiazepines Scrn Urine Cocaine Screen U Cannabinoids Screen Ur Drug Screen Comment Ethyl Alcohol 11/30/21 11/30/21 11/30/21 12:30 12:30 12:30 WBC RBC Hgb Hct MCV MCH MCHC RDW Std Deviation RDW Coeff of Shad Plt Count MPV Immature Gran % (Auto) Neut % (Auto) Lymph % (Auto) [place] % (Auto) Eos % (Auto) Baso % (Auto) Absolute Neuts (auto) Absolute Lymphs (auto) Nucleated RBC % PT INR Sodium Potassium Chloride Carbon Dioxide Anion Gap BUN Creatinine Estim Creat Clear Calc Est GFR (MDRD) Af Amer Est GFR (MDRD) Non-Af BUN/Creatinine Ratio Glucose Calcium Total Bilirubin AST ALT Alkaline Phosphatase Total Protein Albumin Globulin Albumin/Globulin Ratio Urine Color Yellow Urine Clarity Clear Urine pH 6.0 Ur Specific [place] 1.010 Urine Protein Negative Urine Glucose (UA) Normal Urine Ketones Negative Urine Occult Blood Negative Urine Nitrite Negative Urine Bilirubin Negative Urine Urobilinogen Normal Ur Leukocyte Esterase 100 H Urine RBC 0 SEEN Urine WBC 0 SEEN Ur Squamous Epith Cells 0 SEEN Urine Bacteria 0 SEEN Urine Mucus 0 SEEN Urine Opiates Screen NEGATIVE Urine Methadone Screen NEGATIVE Ur Barbiturates Screen NEGATIVE Ur Phencyclidine Scrn NEGATIVE Ur Amphetamines Screen NEGATIVE MDMA (Ecstasy) Screen NEGATIVE U Benzodiazepines Scrn NEGATIVE Urine Cocaine Screen NEGATIVE U Cannabinoids Screen NEGATIVE Ur Drug Screen Comment Ethyl Alcohol 262.0 Discharge Plan Dx/Rx/DC Orders Clinical Impression: Alcohol abuse, Alcohol withdrawal Disposition Disposition: Acute Care Hospital [facility] Discharge Date/Time: 11/30/21 13:00
[2021-11-30 12:31] LABS: Bacteria 0 SEEN /hpf (None Seen); Mucous, Urine 0 SEEN /hpf (<or=2+); Red Blood Cells-Urine 0 SEEN /hpf (0-5); Squamous Epithelial Cells - UA 0 SEEN /hpf (0-5); White Blood Cells 0 SEEN /hpf (0-5)
--- NOTE | 2021-11-30 12:34 | HP.PCM.HOS_ITS ---
HPI - General General Date of Admission: 11/30/21 HPI Narrative AMANDA KOROMA, is a 56 M with a PMh as outlined who presents via the ED on 11/30/2021 for acute alcohol withdrawal. He drinks about 4 pints of vodka daily and had been binge drinking for the last 4 days. His last drink was this morning. He last underwent detox in June 2021, and says he was sober for 5 months, but relapsed a few days ago. He denies any tremors, shakes, dizziness, nausea or vomiting or diarrhea. Review of systems is otherwise negative. Vitals in the ED were blood pressure 137/79, pulse rate of 78, respiratory rate of 18 he was saturating 97% on room air. Temperature was 97.6 Fahrenheit. CBC was unremarkable. BMP was also unremarkable. URine tox was negative, and serum alcohol level was 262. He has been admitted to be managed for acute alcohol withdrawal. REPLACED BY [facility] Medical History Alcohol abuse Alcohol dependence Alcoholism Anxiety Depression Smoker Home Medications multivitamin 1 tab PO DAILY 11/30/21 [History Last Taken Unknown] thiamine HCl (vitamin B1) 100 mg PO DAILY 11/30/21 [History Last Taken Unknown] Allergy/AdvReac Type Severity Reaction Status Date / Time No Known Allergies Allergy Verified 11/30/21 11:55 Family History Other Cancer Social History Smoking Status: Current every day smoker tobacco type: cigarettes alcohol intake: current alcohol intake frequency: 3 or more drinks per day Alcohol type: hard liquor substance use type: does not use ROS Constitutional Constitutional: Denies anorexia, chills, fatigue, fever(s), malaise or weakness Eyes Eyes: Denies change in vision Cardiovascular Cardiovascular: Denies chest pain, dyspnea on exertion, edema, lightheadedness, orthopnea, palpitations, paroxysmal nocturnal dyspnea, rapid heart rate or syncope Respiratory/Chest Respiratory/Chest: Denies cough, dyspnea, productive cough, shortness of breath at rest or shortness of breath with exertion Gastrointestinal Gastrointestinal: Denies abdominal pain, constipation, diarrhea, nausea or vomiting Genitourinary Genitourinary: Denies burning urination or dysuria Neurologic Neurologic: Denies confusion, dizziness, focal weakness, headache(s) or syncope Psychiatric Psychiatric: Denies anxiety or depression Endocrine Endocrinology: Denies change in body appearance Vital Signs Vital Signs Vital Signs: 11/30/21 11:55 Temperature 97.6 F L Temperature Source Temporal Pulse Rate 78 Respiratory Rate 18 Blood Pressure 137/79 H Blood Pressure Mean 98 Pulse Ox 97 Oxygen Delivery Method Room Air Weight Weight: 165 lb Body Mass Index (BMI) 21.7 Physical Exam Const alert, oriented x3 and no apparent distress General Appearance: cooperative HEENT normocephalic, head/scalp atraumatic, hearing grossly normal bilaterally and moist oral mucous membranes Eyes PERRL, EOMs intact bilaterally and conjunctivae normal Neck no lymphadenopathy and supple Resp normal respiratory effort, no retractions, no use of accessory muscles and clear to auscultation bilaterally Cardio regular rate, regular rhythm, S1 normal heart sound, S2 normal heart sound and no murmurs GI normal to inspection, nondistended, normoactive bowel sounds, soft to palpation, non-tender and non-distended Extremity normal to inspection, full ROM and no clubbing, cyanosis or edema Peripheral Pulses: Yes pulses 2+ throughout Skin no rashes or lesions noted Neuro oriented x3, CN's II-XII intact bilaterally and moves all extremities Sensorium / Orientation: awake and alert Psych affect normal Results Lab / Micro Data Result Diagrams: 11/30/21 12:30 11/30/21 12:30 Labs: Laboratory Results - last 24 hr 11/30/21 12:30: Ur Drug Screen Comment Assessment & Plan Assessment/Plan (1) Alcohol withdrawal: PLAN: #Acute alcohol withdrawal * admit to med surg * start on alcohol withdrawal protocol with phenobarbital * thiamine, folic acid, and multivite * adjunctive meds for symptomatic relief * DVT prophylaxis: low risk; encourage ambulation Charges/Coding Visit Charges Inpatient E&M: 21288 Init Hosp L3
--- NOTE | 2021-11-30 12:45 | NURSING ---
MED SURG KORAM ALCOHOL ABUSE
[2021-11-30 12:54] VITALS: BP 137/79; PULSE 78; RESP 18; TEMP 36.4; O2SAT 97
[2021-11-30 12:54] LABS: ALB/GLOB Ratio 1.1 RATIO (0.9-2.4); AST(SGOT) 24 U/L (15-37); Alanine Aminotransfer ALT/SGPT 21 U/L (16-61); Albumin, Serum 4.3 g/dL (3.2-5.0); Alkaline Phosphatase 100 U/L (45-117); Anion Gap 5 (5-15); BUN 13 mg/dL (7-18); BUN/Creat Ratio 15.4 RATIO (10-20); Calcium,Total 8.7 mg/dL (8.5-10.1); Chloride 108 mmol/L (98-107); Creatinine, Serum 0.85 mg/dL (0.70-1.30); EST Glomerular Filtration Rate 99 mL/min (>60); Est Glom Filt Rate - Afr Amer 120 mL/min (>60); Estimated Creatinine Clearance 100.28 ml/min; Glucose 81 mg/dL (74-106); Potassium 3.7 mmol/L (3.5-5.1); Protein, Total 8.3 g/dL (6.4-8.2); Sodium Level 142 mmol/L (136-145)
[2021-11-30 12:57] LABS: Absolute Lymphocyte Count 2.38 X10^3/uL (0.83-4.51); Absolute Neutrophil Count 6.6 X10^3/uL (2.0-7.7); Basophil# 0.05 X10^3/uL; Basophil% 0.5 % (0-1); Eosinophil# 0.23 X10^3/uL; Eosinophils% 2.4 % (0-5); Hematocrit 44.5 % (40-54); Hemoglobin 14.9 g/dL (13.0-16.5); Lymphocyte # 2.38 X10^3/ul (0.83-4.51); Lymphocyte % 24.4 % (19-41); Mean Corp Hgb Conc 33.5 g/dL (32-36); Mean Corpuscular Hgb 31.5 pg (27.0-32.0); Mean Corpuscular Volume 94.1 fL (80-94); Mean Platelet Vol. 10.7 fl (6.2-12.0); Monocyte# 0.42 X10^3/uL; Monocyte% 4.3 % (0-10); NRBC Flagged by Analyzer 0 % (0-5); Neutrophil # 6.64 X10^3/uL (2.7-7.7); Platelet Count 299 K/mm3 (150-450); RBC Distribution Width CV 13.6 % (11.6-14.6); RBC Distribution Width SD 47.2 fl (35.1-43.9); Red Blood Count 4.73 M/mm3 (4.6-6.2); White Blood Count 9.8 K/mm3 (4.4-11.0)
[2021-11-30 13:02] LABS: International Normalized Ratio 0.9; Prothrombin Time (Protime)PT. 12.2 SECONDS (11.7-14.9)
[2021-11-30 13:07] LABS: Color, Urine Yellow (Yellow); Glucose, Dipstick Normal (Normal); Ketone-Dipstick Negative (Negative); Leukocyte Esterase-Dipstick 100 /ul (Negative); Nitrite-Dipstick Negative (Negative); Occult Blood-Urine Negative /ul (Negative); Protein-Dipstick Negative (Negative); Urine Bilirubin Dipstick Negative (Negative); Urine Clarity Clear (Clear); Urine Urobilinogen Normal (Normal)
[2021-11-30 13:08] LABS: Amphetamine Urine VISTA NEGATIVE (<1000 ng/mL); Barbiturate Urine VISTA NEGATIVE (< 200 ng/mL); Benzodiazepine Urine VISTA NEGATIVE (< 200 ng/mL); Cocaine Urine VISTA NEGATIVE (< 300 ng/mL); Ecstacy Urine VISTA NEGATIVE (< 500 ng/mL); Methadone Urine VISTA NEGATIVE (< 300 ng/mL); PCP Urine VISTA NEGATIVE (< 25 ng/mL); THC Urine VISTA NEGATIVE (< 50 ng/mL); Vista UDS pH Range 5
[2021-11-30 13:17] VITALS: BMI 21.7
[2021-11-30 13:23] VITALS: BP 107/71; PULSE 64; RESP 16; TEMP 36.6; O2SAT 95
[2021-11-30] MEDS: Phenobarbital 32.4 MG Tablet 64.8 MG PO ×3 (13:53→21:24)
[2021-11-30 18:13] VITALS: BP 112/57; PULSE 77; RESP 16; TEMP 37; O2SAT 96
[2021-11-30 21:20] VITALS: BP 116/73; PULSE 60; RESP 16; TEMP 36.9; O2SAT 96
[2021-12-01] MEDS: Phenobarbital 32.4 MG Tablet 64.8 MG PO ×6 (01:40→21:29)
[2021-12-01 01:42] VITALS: BP 120/74; PULSE 58; RESP 18; TEMP 36.6; O2SAT 97
[2021-12-01 05:44] VITALS: BP 132/72; PULSE 68; RESP 16; TEMP 36.7; O2SAT 97
[2021-12-01] MEDS: Folic Acid 1 MG Tablet PO (09:28)
[2021-12-01] MEDS: Thiamine Hydrochloride 100 MG Tablet PO (09:29)
--- NOTE | 2021-12-01 09:39 | PCM.PN.HOSP ---
Subjective Subjective Follow-up on acute alcohol withdrawal: Patient was seen and examined. He denied any new complaints. No acute events overnight. Objective Data Objective Data Vital Signs: Vital Signs Temp Pulse Resp BP Pulse Ox 98.1 F 68 16 132/72 H 97 12/01/21 05:44 12/01/21 05:44 12/01/21 05:44 12/01/21 05:44 12/01/21 05:44 Oxygen Delivery Method Room Air Weight: 74.843 kg Body Mass Index (BMI) 21.7 Intake & Output: Intake and Output for Last 24 Hours 11/29/21 11/30/21 12/01/21 23:59 23:59 23:59 Intake Total 450 / 850 800 / 800 Balance 450 / 850 800 / 800 Lab / Micro Data Result Diagrams: 11/30/21 12:30 11/30/21 12:30 Labs: Laboratory Results - last 24 hr 11/30/21 12:30: WBC 9.8, RBC 4.73, Hgb 14.9, Hct 44.5, MCV 94.1 H, MCH 31.5, MCHC 33.5, RDW Std Deviation 47.2 H, RDW Coeff of Shad 13.6, Plt Count 299, MPV 10.7, Immature Gran % (Auto) 0.400, Neut % (Auto) 68.0, Lymph % (Auto) 24.4, [place] % (Auto) 4.3, Eos % (Auto) 2.4, Baso % (Auto) 0.5, Absolute Neuts (auto) 6.6, Absolute Lymphs (auto) 2.38, Nucleated RBC % 0 11/30/21 12:30: PT 12.2, INR 0.9 11/30/21 12:30: Sodium 142, Potassium 3.7, Chloride 108 H, Carbon Dioxide 29.0, Anion Gap 5, BUN 13, Creatinine 0.85, Estim Creat Clear Calc 100.28, Est GFR (MDRD) Af Amer 120, Est GFR (MDRD) Non-Af 99, BUN/Creatinine Ratio 15.4, Glucose 81, Calcium 8.7, Total Bilirubin 0.60, AST 24, ALT 21, Alkaline Phosphatase 100, Total Protein 8.3 H, Albumin 4.3, Globulin 4.0, Albumin/Globulin Ratio 1.1 11/30/21 12:30: Ethyl Alcohol 262.0 11/30/21 12:30: Urine Color Yellow, Urine Clarity Clear, Urine pH 6.0, Ur Specific [place] 1.010, Urine Protein Negative, Urine Glucose (UA) Normal, Urine Ketones Negative, Urine Occult Blood Negative, Urine Nitrite Negative, Urine Bilirubin Negative, Urine Urobilinogen Normal, Ur Leukocyte Esterase 100 H, Urine RBC 0 SEEN, Urine WBC 0 SEEN, Ur Squamous Epith Cells 0 SEEN, Urine Bacteria 0 SEEN, Urine Mucus 0 SEEN 11/30/21 12:30: Urine Opiates Screen NEGATIVE, Urine Methadone Screen NEGATIVE, Ur Barbiturates Screen NEGATIVE, Ur Phencyclidine Scrn NEGATIVE, Ur Amphetamines Screen NEGATIVE, MDMA (Ecstasy) Screen NEGATIVE, U Benzodiazepines Scrn NEGATIVE, Urine Cocaine Screen NEGATIVE, U Cannabinoids Screen NEGATIVE, Ur Drug Screen Comment Physical Exam Narrative Physical exam: General: Alert, Oriented x3, Cooperative, HEENT: Atraumatic Oral: Moist Mucosa Neck: Supple Lungs: Clear to auscultation Cardiovascular: HS I+II, regular, no murmurs Abdomen: Bowel Sounds Present, Soft, Non Tender Extremities: No edema Skin: No rashes, No breakdown Neurological: Grossly intact Psych/Mental Status: Appropriate Assessment & Plan Assessment/Plan (1) Alcohol withdrawal: PLAN: 1. Acute alcohol withdrawal, improving Continue on high flow but with her withdrawal protocol 2. DVT prophylaxis-low risk; early ambulation recommended Charges/Coding Visit Charges Inpatient E&M: 69652 Subs Hosp L2
--- NOTE | 2021-12-01 12:58 | ADDICTION ---
This real estate underwriter met with PT to conduct ASAM, MSE, AUDIT assessments and to plan for d/c. PT A+Ox4 and participated actively. All assessments completed and placed in PT's chart. PT plans to f/u with [facility] for follow-up treatment services. PT did not indicate a need for transportation post d/c from [facility].
[2021-12-01 14:08] VITALS: BP 127/79; PULSE 54; RESP 18; TEMP 36.7; O2SAT 96
--- NOTE | 2021-12-01 14:10 | CHAPLAIN ---
Type of Pastoral Visit _x__ Initial Visit ___ Follow-up Visit ___ On-call Visit ___ General Patient Visit ___ Spiritual Assessment ___ Family Conference ___ Bereavement ___ Rapid Response ___ Code Blue ___ Other (describe below) Pastoral Care Referral From _x__ Patient ___ Family ___ Nurse ___ Physician ___ Specifications Writer ___ Regulatory Intern ___ Other (describe below) Sacrament/Intervention ___ Active listening ___ Anointing ___ Quaker ___ Bereavement ___ Communion ___ Moriah exploration ___ ___ Life review ___ Prayer ___ Reconciliation ___ Sacrament of Sick _x__ Supportive presence ___ Wedding ___ Other (describe below) Pastoral Comments patient was sleeping but awoke easily to mention of his name; pt states that he is doing pretty well and plans to go home tomorrow; pt says I have my own moriah but thank you for stopping and checking on me; offer of support given as desired
[2021-12-01 17:30] VITALS: BP 121/79; PULSE 66; RESP 16; TEMP 36.7; O2SAT 95
[2021-12-01 21:25] VITALS: BP 116/68; PULSE 60; RESP 18; TEMP 36.7; O2SAT 97
[2021-12-02 02:29] VITALS: BP 104/78; PULSE 51; RESP 18; TEMP 36.6; O2SAT 97
[2021-12-02] MEDS: Phenobarbital 32.4 MG Tablet 64.8 MG PO ×2 (02:31→06:13)
--- NOTE | 2021-12-02 07:22 | PCM.DC ---
Discharge Instructions Diet Discharge Diet: No restrictions Activity Discharge Activity: Return to Normal Activity Follow Up Care Test Results: Test results from this visit will be discussed in further detail at your follow-up appointment, if applicable. Discharge Plan Admission Admit Date/Time: 11/30/21 12:49 Primary Reason for Your Visit: Acute alcohol withdrawal Attending Provider: Skye Castillo Primary Care Provider: Alis Pastor,No Primary Consulting Providers: Kavitha Mckinney Instructions Additional Instructions / Restrictions: You are strongly advised to avoid alcohol or use of any illicit drug. Avoid smoking. Follow-up with your outpatient rehab program as scheduled. Discharge Orders/Prescriptions Prescriptions: Continued multivitamin Tablet 1 tab PO DAILY RF: 0 thiamine HCl (vitamin B1) 100 mg tablet 100 mg PO DAILY RF: 0 Referrals / Follow Up: Care Physician,No Primary [Primary Care Provider] - In 1 Week PodlogJuju salinas NP, FORM BLOCK MAKER-C [NON-STAFF] - In 1 Week Disposition Disposition (needs filled in before D/C Order can be placed): Home, Self Care
--- NOTE | 2021-12-02 07:23 | DS.PCM_ITS ---
Providers Date of Admission: 11/30/21 Date of Discharge: 12/02/21 Primary Care Physician: Jayda Primary Care Phys Reason For Visit: ACUTE ALCOHOL WITHDRAWAL Diagnosis Discharge Diagnosis (1) Alcohol withdrawal: Status: Acute Code(s): F10.239 - Alcohol dependence with withdrawal, unspecified (2) Alcohol abuse: Status: Acute Code(s): F10.10 - Alcohol abuse, uncomplicated Medications at Discharge Home Medications multivitamin 1 tab PO DAILY 11/30/21 thiamine HCl (vitamin B1) 100 mg PO DAILY 11/30/21 Hospital Course Operations None Procedures None Summary of Care Provided Minutes Spent on Discharge: 25 Hospital Course: 56-year-old with past medical history of chronic alcohol abuse who comes in requesting for medical stabilization from acute alcohol withdrawal. Patient admits to drinking 4 pints of vodka every day. He had been binge d rinking for the past 4 days prior to admission. His last drink was on the morning of admission. He had undergone detox in June. His admitting vitals were stable. His blood work was unremarkable. Her serum alcohol level was 262. He was admitted to the MedSur floor and managed on alcohol withdrawal protocol. Patient continued to be stable. No acute event during the hospital stay. He was seen by addiction social work and discharge to [facility] in [place]. He will follow-up with his primary doctor in 1 week Physical Exam Narrative Physical exam: General: Alert, Oriented x3, Cooperative, HEENT: Atraumatic Oral: Moist Mucosa Neck: Supple Lungs: Clear to auscultation Cardiovascular: HS I+II, regular, no murmurs Abdomen: Bowel Sounds Present, Soft, Non Tender Extremities: No edema Skin: No rashes, No breakdown Neurological: Grossly intact Psych/Mental Status: Appropriate Weight / BMI Weight Weight: 74.843 kg Body Mass Index (BMI) 21.7 ABG / Lab / Microbiology Data Result Diagrams: 11/30/21 12:30 11/30/21 12:30 D/C Instructions Discharge Diet: No restrictions Meaningful Use Info Meaningful Use Diagnoses (Choose all that apply): None applicable Discharge Plan Admission Admit Date/Time: 11/30/21 12:49 Primary Reason for Your Visit: Acute alcohol withdrawal Attending Provider: Skye Castillo Primary Care Provider: Care Physician,No Primary Consulting Providers: Kavitha Mckinney Instructions Additional Instructions / Restrictions: You are strongly advised to avoid alcohol or use of any illicit drug. Avoid smoking. Follow-up with your outpatient rehab program as scheduled. Discharge Orders/Prescriptions Prescriptions: Continued multivitamin Tablet 1 tab PO DAILY RF: 0 thiamine HCl (vitamin B1) 100 mg tablet 100 mg PO DAILY RF: 0 Referrals / Follow Up: Care Physician,No Primary [Primary Care Provider] - In 1 Week PodlogarJuju NP, JUNIOR SOFTWARE DEVELOPER-C [NON-STAFF] - In 1 Week Disposition Disposition (needs filled in before D/C Order can be placed): Home, Self Care Charges/Coding Visit Charges Inpatient E&M: 47426 Disch Hosp
[2021-12-02 07:50] VITALS: BP 123/64; PULSE 69; RESP 16; TEMP 36.6; O2SAT 97
[2021-12-02] MEDS: Folic Acid 1 MG Tablet PO (07:55)
[2021-12-02] MEDS: Thiamine Hydrochloride 100 MG Tablet PO (07:55)
== END 2021-12-02 10:26 | disposition home or self-care (01) | DRG 775 ==
LOC: ED 12:42 → MS3 12:56
PROVIDERS: Admitting Provider Student in an Organized Health Care Education/Training Program; Emergency Provider Emergency Medicine; Visit Provider Internal Medicine
DX: F10.239 Alcohol dependence with withdrawal, unspecified (principal); F17.210 Nicotine dependence, cigarettes, uncomplicated; Y90.8 Blood alcohol level of 240 mg/100 ml or more
CPT/HCPCS: 80053; 80307; 81001; 82077; 85025; 85610; 99218; 99284; 99406; G0378